=== PATIENT | female | born 1975 | race Caucasian/White ===

== ENCOUNTER → 2017-12-22 07:46 | Outpatient (CLI) | payer OTHER, SELFPAY ==
[2017-12-22 10:23] LABS: ALB/GLOB Ratio 1.2 RATIO (0.9-2.4); AST(SGOT) 19 U/L (15-37); Alanine Aminotransfer ALT/SGPT 35 U/L (13-56); Alkaline Phosphatase 44 U/L (45-117); Anion Gap 6 (5-15); BUN 14 mg/dL (7-18); BUN/Creat Ratio 15.4 RATIO (10-20); Calcium,Total 8.7 mg/dL (8.5-10.1); Chloride 106 mmol/L (98-107); Creatinine, Serum 0.91 mg/dL (0.55-1.02); EST Glomerular Filtration Rate 73 mL/min (>60); Est Glom Filt Rate - Afr Amer 88 mL/min (>60); Free T3 2.6 pg/mL (2.18-3.98); Globulin 3.2 g/dL (2.2-4.2); Glucose 80 mg/dL (70-110); Potassium 3.7 mmol/L (3.5-5.1); Protein, Total 7.2 g/dL (6.4-8.2); Sodium Level 141 mmol/L (136-145); T4 Free Direct 1.02 ng/dL (0.76-1.46); Thyroid Stim Hormone (TSH) 2.46 uIU/mL (0.358-3.74)
== END ==
PROVIDERS: Family Provider Family Medicine; PCP Family Medicine; Visit Provider Internal Medicine Endocrinology, Diabetes & Metabolism
DX: E05.20 Thyrotoxicosis with toxic multinodular goiter without thyrotoxic crisis or storm (principal); E55.9 Vitamin D deficiency, unspecified
CPT/HCPCS: 36415; 80053; 82306; 84439; 84443; 84481

== ENCOUNTER → 2018-07-27 07:14 | Outpatient (CLI) | payer OTHER, SELFPAY ==
[2018-07-27 10:38] LABS: Vitamin D,25 Hydroxy 62.5 ng/mL (29.95-100.01)
[2018-07-27 10:43] LABS: ALB/GLOB Ratio 1.2 RATIO (0.9-2.4); AST(SGOT) 23 U/L (15-37); Alanine Aminotransfer ALT/SGPT 30 U/L (13-56); Albumin, Serum 3.8 g/dL (3.2-5.0); Alkaline Phosphatase 39 U/L (45-117); Anion Gap 9 (5-15); BUN 14 mg/dL (7-18); BUN/Creat Ratio 16.9 RATIO (10-20); Calcium,Total 8.5 mg/dL (8.5-10.1); Chloride 108 mmol/L (98-107); Cholesterol 160 mg/dL (200); Creatinine, Serum 0.83 mg/dL (0.55-1.02); EST Glomerular Filtration Rate 80 mL/min (>60); Est Glom Filt Rate - Afr Amer 97 mL/min (>60); Globulin 3.2 g/dL (2.2-4.2); Glucose 80 mg/dL (74-106); High Density Lipoprotein 58 mg/dL; Potassium 3.8 mmol/L (3.5-5.1); Sodium Level 144 mmol/L (136-145); Triglycerides 64 mg/dL; Very Low Density Lipoprotein 13 mg/dL (5-40)
== END ==
PROVIDERS: Family Provider Family Medicine; PCP Family Medicine; Visit Provider Internal Medicine Endocrinology, Diabetes & Metabolism
DX: E04.2 Nontoxic multinodular goiter (principal); E78.00 Pure hypercholesterolemia, unspecified; E55.9 Vitamin D deficiency, unspecified
CPT/HCPCS: 36415; 80053; 80061; 82306; 84443

== ENCOUNTER → 2018-08-30 09:05 | Outpatient (CLI) | payer OTHER, SELFPAY ==
[2018-08-30 10:30] LABS: Hemoglobin A1c 5.4 % (4.2-6.3)
[2018-08-30 10:31] LABS: Estradiol 71.3 pg/mL; Follicle Stimulating Hormone 4.4 mIU/mL; Luteinizing Hormone 3.2 mIU/mL; T4 Free Direct 0.89 ng/dL (0.76-1.46); Thyroid Stim Hormone (TSH) 1.81 uIU/mL (0.358-3.74)
[2018-08-30 11:00] LABS: Progesterone Level 12.13 ng/mL (See Comment)
[2018-08-31 07:37] LABS: DHEA Sulfate 114.8 ug/dL (57.3-279.2)
== END ==
PROVIDERS: Family Provider Family Medicine; PCP Family Medicine; Referring Provider Obstetrics & Gynecology; Visit Provider Obstetrics & Gynecology
DX: N95.1 Menopausal and female climacteric states (principal)
CPT/HCPCS: 36415; 82533; 82627; 82670; 83001; 83002; 83036; 84144; 84403; 84439; 84443; 84481; 82626

== ENCOUNTER → 2018-09-20 08:45 | Outpatient (CLI) | payer OTHER, SELFPAY ==
--- NOTE | 2018-09-20 08:48 | RAD_ITS ---
STUDY: X-RAY - LEFT KNEE REASON FOR EXAM: Knee pain for 2 months after working out. TECHNIQUE: 4 view(s) of the knee. COMPARISON: Radiographs 07/18/2010. FINDINGS: Normal visualized distal femur. Normal visualized proximal tibia and fibula. Normal proximal tibiofibular articulation. Normal medial femorotibial compartment. Normal lateral femorotibial compartment. Normal patellofemoral articulation. There is a small joint effusion. RAD/Knee 4 or More Views IMPRESSION: Small joint effusion. Otherwise, unremarkable x-ray examination of the left knee. Electronically Signed: José Levin MD at 16:01 EDT Tel , Service support ,
[2018-09-20 11:52] LABS: Pathologist Comment May follow
[2018-09-20 15:03] LABS: Synovial Fld Mononuclear WBC % 74.7 %; Synovial Fld Polynuclear WBC # 0.069 10^3/ul; Synovial Fld Polynuclear WBC % 25.3 %
[2018-09-20 15:19] LABS: AUTO B FLUID DILUENT BKGD CT WBC <0.1 RBC <0.01 (W<.1,R<.01)
[2018-09-20 15:20] LABS: Appearance /Synovial Fluid Sl Cl (CLEAR); Color / Synovial Fluid Yellow (Pale Yellow); RBC /Synovial Fluid 18 /mm3 (0); Source- Body Fluid SYNOVIAL
[2018-09-20 15:27] LABS: Body Fluid QC Type(s) BF1Q,BF2Q,BF3Q; Lymph 23 %; Monocyte /Synovial Fluid 70 %; Neutrophil 7 % (0-25)
[2018-09-21 15:29] LABS: Pathologist Review Reviewed
== END ==
PROVIDERS: Family Provider Family Medicine; PCP Family Medicine; Referring Provider Orthopaedic Surgery; Visit Provider Orthopaedic Surgery
DX: M25.562 Pain in left knee (principal); M94.262 Chondromalacia, left knee
CPT/HCPCS: 73564; 87070; 87075; 87205; 89050; 89051; 89060

== ENCOUNTER 2018-11-02 07:00 | Outpatient (RCR) | payer OTHER, SELFPAY ==
--- NOTE | 2018-10-05 08:23 | HP.PTEVAL_ITS ---
Patient's Visit Information ASHWINI KRISHNAN is a 43 year old F referred to Physical Therapy by Naomi Jones DO with a diagnosis of L knee pain. Date of Evaluation: 10/05/18 Physical Therapist: Leobardo Nguyen PT, - Visit Plan Frequency: 1x/Week Duration: 1 Week Plan: I issued a HEP consisting of core strengthening ex's and L LE strengthening - Subjective Subjective: Pt reports she has had L knee pain since June. Pt reports she was performing knee extension ex's when she began to experience L knee pain. Pt reports she has had this pain in the past, but it has never lasted this long. Pain is generalized throughout the entire L knee. Pt reports she is unable to squat due to the pain and swelling. Pt has had xrays, which were all negative in findings. No T or N in the L LE. Pt reports no sleep difficulty secondary to pain. No difficulty with stair negotiation. Pt currently works out at [employer]. Pt is not able to stand for a long period of time secondary to pain. 1/10 at rest, 2/10 at worst (attempting to squat) - Pain L knee Pain Intensity (Out of 10): 1 Pain Intensity Range: 2 - Objective Neuro: B LE sensation is WNL to light touch. B achilles reflex= 2/3. Palpation: Pt is sore on the lateral edge of her L patella. Significant crepitus with AROM. No obvious deformity at this time. Girth at joint line: B knees are 37 cm. ROM: B knees are 0-140 degrees. Flexibilty: Pt is moderately limited with quads, HS's, and IT band. Gait: Pt has sig valgus with step lunging indicating core weakness. MMT: B knees are 4+/5 and not painful - Goals Goal 1:: I with HEP Goal Time Frame: 1 Week - Rehabilitation Potential Physical Therapy Diagnosis: L knee pain and difficulty with squatting activity secondary to patellofemoral syndrome Rehabilitation Potential: Good - Anticipated Interventions Patient/Client Instruction: Educate patient on: Condition For the Purpose of:: To improve self management Therapeutic Exercise to Include: Strength training, Flexibilty training, Dynamic Lumbar Stabilization For the Purpose of:: To decrease pain, To increase ROM, To improve muscle performance and motor function Cryotherapy (ice pack, ice massage): Yes For the Purpose of:: To decrease pain Thank you for the opportunity to evaluate your patient. For Medicare and Medicare HMO plans, please review the plan of care and approve it. It will need to be FAXED BACK to us at [phone] for Medicare purposes. Please let me know if there are questions or concerns regarding this plan of care. Physician Signature: Date:
--- NOTE | 2018-11-02 08:02 | HP.PTDCSUM ---
HP - PT D/C Summary It has been my pleasure to treat ASHWINI KRISHNAN under orders from Naomi Jones DO, for the diagnosis of L knee pain for a total of 2 visit(s). Discharge Date: Please see the following information for a summary of their discharge status. - Subjective Subjective: Pt returns today noting she has been consistent and compliant with HEP. Pt reports she is frustrated that she still has pain. - Pain L knee Pain Intensity (Out of 10): 1 - Objective Objective/Function: Pt is consistent with ex's and has remained compliant. Pt still has swelling in L knee and is limited with squatting activity. Pt continues to have painful crepitus with AROM. No significant changes at this time - Goals Goal 1:: I with HEP - Plan Plan: Discontinue, pt to have possible MRI - D/C Information If there are questions or concerns regarding this patient's physical therapy, please feel free to call me at [phone]. Thank you for the referral of this patient. Sincerely, Leobardo Nguyen, PT,
== END 2018-11-02 13:08 | disposition home or self-care (01) ==
LOC: PT 07:00
PROVIDERS: Family Provider Family Medicine; PCP Family Medicine; Referring Provider Orthopaedic Surgery; Visit Provider Orthopaedic Surgery
DX: M22.42 Chondromalacia patellae, left knee (principal); M22.2X2 Patellofemoral disorders, left knee
CPT/HCPCS: 97162; 97530

== ENCOUNTER → 2018-11-14 06:14 | Outpatient (CLI) | payer OTHER, SELFPAY ==
--- NOTE | 2018-11-14 06:15 | MRI_ITS ---
STUDY: MRI LEFT KNEE REASON FOR EXAM: Female, 43 years old. Left knee pain with patellar maltracking. TECHNIQUE: Standardized fat and water weighted pulse sequences were obtained in all 3 orthogonal planes. COMPARISON: X-rays of the left knee dated September 20, 2018. FINDINGS: Normal medial meniscus. There is mild thinning of the articular cartilage of the medial femorotibial compartment (coronal series 6 images 10-15). Normal medial femoral condyle and tibial plateau. Normal medial collateral ligamentous complex (MCL). Normal distal semimembranosus, gracilis and semitendinosus tendons. Normal lateral meniscus. There is mild thinning of the articular cartilage of the lateral femorotibial compartment (coronal series 6 images 8-15). Normal lateral femoral condyle and tibial plateau. Normal proximal tibiofibular articulation. Normal lateral collateral (fibular) ligament. Normal popliteus tendon. Normal biceps femoris tendon. Normal anterior cruciate ligament (ACL). Normal posterior cruciate ligament (PCL). 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 Normal medial and lateral patellar retinaculum. Normal quadriceps tendon. Normal patellar tendon. Normal Hoffa's fat pad. There is a joint effusion (axial series 2 image 8). The soft tissues are unremarkable. The otherwise visualized osseous structures are unremarkable. MRI/Lower Ext Joint Only (Routine) IMPRESSION: Mild thinning of the articular cartilage of the medial and lateral femorotibial compartments. 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 Small joint effusion. No meniscal or ligamentous pathology. Electronically Signed: Baldo Morales MD at 13:56 EST , Service support ,
== END ==
PROVIDERS: Family Provider Family Medicine; PCP Family Medicine; Referring Provider Orthopaedic Surgery; Visit Provider Orthopaedic Surgery
DX: M22.8X2 Other disorders of patella, left knee (principal); M94.262 Chondromalacia, left knee
CPT/HCPCS: 73721

== ENCOUNTER → 2019-02-08 07:04 | Outpatient (CLI) | payer BC, SELFPAY ==
[2019-02-08 10:47] LABS: ALB/GLOB Ratio 1.3 RATIO (0.9-2.4); AST(SGOT) 22 U/L (15-37); Alanine Aminotransfer ALT/SGPT 31 U/L (13-56); Albumin, Serum 3.9 g/dL (3.2-5.0); Alkaline Phosphatase 40 U/L (45-117); Anion Gap 7 (5-15); BUN 16 mg/dL (7-18); BUN/Creat Ratio 18.9 RATIO (10-20); Calcium,Total 8.7 mg/dL (8.5-10.1); Chloride 110 mmol/L (98-107); Cholesterol 154 mg/dL (200); Creatinine, Serum 0.85 mg/dL (0.55-1.02); EST Glomerular Filtration Rate 78 mL/min (>60); Est Glom Filt Rate - Afr Amer 94 mL/min (>60); Free T3 2.3 pg/mL (2.18-3.98); Glucose 88 mg/dL (74-106); High Density Lipoprotein 51 mg/dL; Potassium 3.8 mmol/L (3.5-5.1); Protein, Total 6.9 g/dL (6.4-8.2); Sodium Level 143 mmol/L (136-145); T4 Total, Thyroxin 8.8 ug/dL (4.8-13.9); Triglycerides 52 mg/dL; Very Low Density Lipoprotein 10 mg/dL (5-40)
[2019-02-08 10:55] LABS: Vitamin D,25 Hydroxy 69.5 ng/mL (29.95-100.01)
== END ==
PROVIDERS: Family Provider Family Medicine; PCP Family Medicine
DX: E04.2 Nontoxic multinodular goiter (principal); E78.00 Pure hypercholesterolemia, unspecified; E55.9 Vitamin D deficiency, unspecified
CPT/HCPCS: 36415; 80053; 80061; 82306; 84436; 84443; 84481

== ENCOUNTER 2019-10-21 13:49 | Emergency (ER) | payer OTHER, SELFPAY ==
[2019-09-05 15:32] VITALS: BMI 23.1
[2019-10-21 13:50] VITALS: BP 131/72; PULSE 86; RESP 16; TEMP 36.4; O2SAT 100; BMI 23.1
[2019-10-21 14:00] VITALS: RESP 16
--- NOTE | 2019-10-21 14:48 | ED.VISSUMM ---
- ER Visit Summary Date of Service: 10/21/19 Chief Complaint: Atraumatic left upper extremity swelling History of Present Illness: The patient is a 44 F no significant past medical history. Patient is right-hand dominant. She does work out but denies any obvious injury to her extremity lately. States the last week he had mild discomfort in her left arm and has developed swelling in her bicep tricep and forearm. No prior history. No history of DVT or PE. He denies any chest pain or shortness of breath. No family history of clotting disorder. Physical Examination: Middle-aged female no acute distress with stable afebrile. HEENT exam unremarkable. Neck nontender no lymphadenopathy. Lungs clear to auscultation bilaterally. Heart regular rhythm no murmur. Abdomen soft nontender normal Doppler no peritoneal signs. Extremities moves all 4. Neurovascular intact. Left upper arm from the shoulder down to her with is definitely swelling and edema. Almost 25 to light on. However she has full range of motion to the left shoulder, elbow, wrist and hand. 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 Normal sensation. Normal cap refill. And a strong radial pulse on the left. There are no obvious cords. There is no axillary lymphadenopathy. No cellulitis. Is not tender to touch. Neurologically he is awake and alert with no focal motor or sensory deficit. Test Results: D-dimer elevated at 1.29. Chest x-ray 2 views AP and lateral read both by myself and radiologist shows no acute abnormality. No mass. Normal cardiac silhouette and mediastinum. Emergency Department Course and Treatment: Noninvasive studies are not available at this time. A d-dimer will be done. Concern for possible left upper extremity DVT. This could be from an injury from a lifting but he does not have any specific episode remember having any type of injury to the arm. There is no bicep or tricep deficit. Repeat exam and 15 patient is doing well. Due to the swelling of the arm and no other specific cause she will be started on anticoagulation. She will be given 1 Xarelto here and take 1 tonight at home. We will have a noninvasive study of the left upper extremity again tomorrow. I discussed all the patient she is comfortable with the plan. Treatment Plan: Ice and elevate left arm. Xarelto tonight for bedtime. Return tomorrow for the noninvasive study. Return if feeling worse. Disposition: Discharge Impression: Atraumatic left arm swelling of uncertain etiology Rule out upper extremity deep venous thrombosis versus muscle strain and swelling This note was generated with [employer] dictation software. It may contain incorrect words, spelling, and punctuation that were not noted in review of the chart prior to signing ED Disposition - Plan for ED Patient: Referrals: Yadira Reeves MD [Primary Care Provider] -
[2019-10-21 15:35] LABS: D-Dimer Quantitative (DVT/PE) 1.29 FEU/ug/m (0.27-0.49)
--- NOTE | 2019-10-21 15:38 | RAD_ITS ---
STUDY: X-RAY CHEST REASON FOR EXAM: Female, 44 years old. Left arm swelling x1 week TECHNIQUE: PA and lateral views of the chest. COMPARISON: None. FINDINGS: The lungs are clear and expanded. There is no demonstrated pleural abnormality. Normal size heart. Normal mediastinum and gisele. Normal visualized pulmonary arteries. Normal visualized aortic arch and descending thoracic aorta. Normal visualized thoracic spine. Normal visualized ribs, clavicles, and shoulders. There is no demonstrated abnormality of the visualized soft tissue structures of the upper abdomen. RAD/Chest PA and Lateral IMPRESSION: Normal x-ray examination of the chest. Electronically Signed: Ernesto Paulino DO at 16:12 EST Tel , Service support ,
--- NOTE | 2019-10-21 16:20 | ED.DEP ---
ED Disposition - Plan for ED Patient: Disposition: Home or Assisted Living Referrals: Yadira Reeves MD [Primary Care Provider] - 1 Week if not improving Additional Instructions: Uncertain cause of swelling your left arm. We need to make sure this is not a blood clot of your left arm. He will return tomorrow morning to have a noninvasive study done of your left upper extremity. They will call you to set this up. If you do not hear something by 10 AM call the ER I will be working at that time. The number for the emergency department is [phone]. The arm swelling may be secondary to a strain of the muscle. Ice it and elevate it. After tomorrow if there is no blood clot Motrin for pain and inflammation and rest the arm. Return if you develop chest pain or shortness of breath. Take your other Xarelto pill tonight before bedtime.
[2019-10-21] MEDS: Rivaroxaban 15 MG Tablet PO ×2 (16:35→16:36)
[2019-10-21 16:36] VITALS: RESP 16
== END 2019-10-21 16:37 | disposition home or self-care (01) ==
PROVIDERS: Emergency Provider Emergency Medicine; Family Provider Family Medicine; PCP Family Medicine
DX: M79.89 Other specified soft tissue disorders (principal); M79.602 Pain in left arm; R79.89 Other specified abnormal findings of blood chemistry
CPT/HCPCS: 71046; 85379; 99283

== ENCOUNTER → 2019-10-22 10:57 | Outpatient (CLI) | payer OTHER, SELFPAY ==
[2019-10-21 13:50] VITALS: BMI 23.1
--- NOTE | 2019-10-22 11:07 | VDUE_ITS ---
Reason For Study: Swelling, Elevated D-Dimer Right Proximal Left Proximal Right subclavian vein is spontaneous, widely Left jugular vein is spontaneous, widely patent, phasic, with no intraluminal patent, phasic, with no intraluminal echogenicity noted. echogenicity noted. Lt SubclavianV is dilated and non compressible consistent with acute DVT. Left Arm Left axillary vein is spontaneous, patent, phasic, competent, compressible and demonstrates augmentation. Left brachial vein is compressible. Left cephalic vein is compressible. Left basilic vein is compressible. Left Lower Arm Left radial vein is compressible. Left ulnar vein is compressible. Patient Safety Pt taken to ED. Interpretation Summary Acute deep vein thrombosis is noted in the left subclavian vein. The remainder of the left upper extremity deep venous system appears patent. The superficial veins of the left upper extremity, the basilic and cephalic veins, are patent and compressible. There is no evidence of left upper extremity superficial thrombophlebitis involving the veins imaged. Ordering Physician: Eliseo Terry Referring Physician: Yadira Reeves Performed By: Nory Diaz, SHIRA, RVT ?
== END ==
PROVIDERS: Family Provider Family Medicine; PCP Family Medicine; Visit Provider Emergency Medicine
DX: M79.89 Other specified soft tissue disorders (principal)
CPT/HCPCS: 93971

== ENCOUNTER 2019-10-22 11:51 | Emergency (ER) | payer OTHER, SELFPAY ==
[2019-10-21 13:50] VITALS: BMI 23.1
[2019-10-22 11:52] VITALS: BP 120/67; PULSE 70; RESP 17; TEMP 36.7; O2SAT 100; BMI 23.3
--- NOTE | 2019-10-22 12:41 | ED.VISSUMM ---
- ER Visit Summary Date of Service: 10/22/19 Chief Complaint: Left subclavian vein deep venous thrombosis History of Present Illness: The patient is a 44 F significant past medical history. Patient was seen yesterday in the emergency department had atraumatic swelling of her left arm. Was started on Xarelto for possible DVT due to an elevated d-dimer. We are able to get the noninvasive study of her left arm this morning which did show a left subclavian vein clot. A center to ER for evaluation. She denies any chest pain or shortness of breath. Again no family history of clotting disorder. Physical Examination: White female no acute distress vital signs stable afebrile. HEENT exam unremarkable. Lungs are clear. Heart regular rhythm. Abdomen soft nontender. Extremities moves all 4. Neurovascular intact. She does have mild swelling from her left shoulder to her left hand. Hands neurovascular intact with normal cap refill and radial pulse. Normal client service associate strength and sensation. There are no cords. Neurologically she is awake and alert. Test Results: Patient had recent BMP showing normal renal function. I am unable to do the hypercoagulable panel today due to her being on the Xarelto which was started yesterday. I confirmed this with the assembler truck trailer on-call. Emergency Department Course and Treatment: Xarelto here. Xarelto twice daily for the first 20 days and then once a day. Referred to Dr. Asencio in line for further work-up for left subclavian DVT. Treatment Plan: Xarelto twice daily. Follow-up with hematology. Disposition: Discharge Impression: Left subclavian vein deep venous thrombosis of uncertain etiology with left arm swelling This note was generated with [employer] dictation software. It may contain incorrect words, spelling, and punctuation that were not noted in review of the chart prior to signing ED Disposition - Plan for ED Patient: Referrals: Yadira Reeves MD [Primary Care Provider] -
--- NOTE | 2019-10-22 12:43 | ED.DEP ---
ED Disposition - Plan for ED Patient: Disposition: Home or Assisted Living Prescriptions: Rivaroxaban [Xarelto] 15 mg PO BID 19 Days #37 tab Prescription Printed Rivaroxaban [Xarelto] 20 mg PO DAILY #30 tab Prescription Printed Referrals: Jorge Nelson DO [STAFF PHYSICIAN] - As soon as possible Additional Instructions: Continues with Xarelto 15 mg twice a day taken about the same time each day for the first 20 days. You have already been on it for 1 day. After the initial 20 days on day 21 you will start taking it only once a day. Confirm that with the supervisor vacuum metalizing. Call and follow-up with a supervisor vacuum metalizing soon as possible. Elevate arm and decrease swelling. Avoid contact sports or head injuries while you are on the blood thinner Xarelto. If you have any bleeding in your stool, urine or bloody nose seek medical attention.
[2019-10-22] MEDS: Rivaroxaban 15 MG Tablet PO (13:06)
[2019-10-22 13:07] VITALS: RESP 16
== END 2019-10-22 13:07 | disposition home or self-care (01) ==
PROVIDERS: Emergency Provider Emergency Medicine; Family Provider Family Medicine; PCP Family Medicine
DX: I82.B12 Acute embolism and thrombosis of left subclavian vein (principal)
CPT/HCPCS: 99283

== ENCOUNTER → 2020-01-09 08:31 | Outpatient (CLI) | payer OTHER, SELFPAY ==
[2020-01-09 10:31] LABS: ALB/GLOB Ratio 1.3 RATIO (0.9-2.4); AST(SGOT) 24 U/L (15-37); Alanine Aminotransfer ALT/SGPT 45 U/L (13-56); Albumin, Serum 3.7 g/dL (3.2-5.0); Alkaline Phosphatase 40 U/L (45-117); Anion Gap 5 (5-15); BUN 14 mg/dL (7-18); BUN/Creat Ratio 15.6 RATIO (10-20); Calcium,Total 8.7 mg/dL (8.5-10.1); Chloride 106 mmol/L (98-107); Cholesterol 147 mg/dL (200); EST Glomerular Filtration Rate 73 mL/min (>60); Est Glom Filt Rate - Afr Amer 88 mL/min (>60); Globulin 2.9 g/dL (2.2-4.2); Glucose 85 mg/dL (74-106); High Density Lipoprotein 67 mg/dL; Potassium 3.7 mmol/L (3.5-5.1); Protein, Total 6.6 g/dL (6.4-8.2); Sodium Level 141 mmol/L (136-145); Thyroid Stim Hormone (TSH) 2.51 uIU/mL (0.358-3.74); Triglycerides 33 mg/dL; Very Low Density Lipoprotein 7 mg/dL (5-40)
== END ==
PROVIDERS: PCP Family Medicine; Referring Provider Internal Medicine Endocrinology, Diabetes & Metabolism; Visit Provider Internal Medicine Endocrinology, Diabetes & Metabolism
DX: E04.2 Nontoxic multinodular goiter (principal); E78.00 Pure hypercholesterolemia, unspecified
CPT/HCPCS: 36415; 80053; 80061; 84443

== ENCOUNTER → 2020-01-18 09:36 | Outpatient (CLI) | payer OTHER, SELFPAY ==
[2020-01-18 13:30] LABS: D-Dimer Quantitative (DVT/PE) 0.37 FEU/ug/m (0.27-0.49)
== END ==
PROVIDERS: PCP Family Medicine; Referring Provider Family Medicine; Visit Provider Family Medicine
DX: I80.8 Phlebitis and thrombophlebitis of other sites (principal)
CPT/HCPCS: 36415; 85379

== ENCOUNTER → 2020-05-13 14:58 | Outpatient (CLI) | payer OTHER, SELFPAY ==
[2020-03-19 12:41] VITALS: BMI 23.3
--- NOTE | 2020-05-13 14:58 | RAD_ITS ---
STUDY: X-RAY - RIGHT KNEE REASON FOR EXAM: Female, 44 years old. CHRONIC KNEE PAIN TECHNIQUE: 4 view(s) of the knee. COMPARISON: 2017 FINDINGS: Normal visualized distal femur. Normal visualized proximal tibia and fibula. Normal proximal tibiofibular articulation. Normal medial femorotibial compartment. Normal lateral femorotibial compartment. Normal patellofemoral articulation. The soft tissue structures are unremarkable. RAD/Knee 4 or More Views IMPRESSION: Normal x-ray examination of the knee. Electronically Signed: Bassam Alegria MD at 15:35 EDT , Service support ,
== END ==
PROVIDERS: PCP Family Medicine; Referring Provider Physician Assistant; Visit Provider Physician Assistant
DX: M25.561 Pain in right knee (principal)
CPT/HCPCS: 73564

== ENCOUNTER 2020-06-06 10:00 | Emergency (ER) | payer OTHER, SELFPAY ==
[2020-06-06 08:54] VITALS: BMI 23.3
[2020-06-06 10:01] VITALS: BP 119/72; PULSE 61; RESP 17; TEMP 36.6; O2SAT 100; BMI 23.5
--- NOTE | 2020-06-06 10:15 | EKG12_ITS ---
Test Reason : DIZZINESS Blood Pressure : / mmHG Vent. Rate : 059 BPM Atrial Rate : 059 BPM P-R Int : 152 ms QRS Dur : 092 ms QT Int : 448 ms P-R-T Axes : 054 087 041 degrees QTc Int : 443 ms Sinus bradycardia Incomplete right bundle branch block Borderline ECG Confirmed by GUSTAVO NEWELL, DALE ([id number]), make up editor CATHERINE GUZMAN ([id number]) on 06/10/2020 10:57:44 AM Referred By: MARY Confirmed By:DALE CHEN MD
--- NOTE | 2020-06-06 10:17 | ED.DCSUM_ITS ---
- ER Visit Summary Date of Service: 06/06/20 Chief Complaint: Near syncope History of Present Illness: The patient is a [address] Reeves. Just before coming to the emergency department patient had Synvisc injection in her right knee. She states that she walked out approximately [address] the [address] to her car she got lightheaded and nauseated. She denies any diaphoresis. No chest pain or palpitations. She felt as though she was going to pass out. Her symptoms lasted 5 to 7 minutes. She is now back to her baseline. Physical Examination: Vitals: Stable. Afebrile. General: Well-nourished and well-developed. Head: Normocephalic atraumatic. Neck: Supple, no lymphadenopathy. No JVD. Nontender. Cardiovascular: Regular rate and rhythm. No murmurs. Respiratory: No respiratory distress. Clear to auscultation bilaterally. Abdominal: Soft, nontender, nondistended, normal bowel sounds. No guarding, rebound, or peritoneal signs. Back: Nontender. Extremities: Nontender, no edema. Skin: Normal color, no rash. Neurologic: Alert and oriented ?3. Cranial nerves II through XII are intact. Normal strength and sensation. Psych: Normal affect. Test Results: EKG shows sinus bradycardia with incomplete right bundle branch block. Her rate is 59. Her intervals are otherwise normal. No evidence of Brugada syndrome. Emergency Department Course and Treatment: Patient is resting comfortably. She was reassured. She refused blood work. Treatment Plan: Patient will be discharged instructions to push fluids. Follow- up with her primary care physician 1 to 2 days if not improving. Return to the emergency department for any worsening symptoms. Disposition: To home in improved and stable condition. Impression: 1. Vasovagal episode after arthrocentesis. This note was generated with [employer] software. It may contain incorrect words, spelling, and punctuation that were not noted in review of the chart prior to signing ED Disposition - Plan for ED Patient: Instructions: ED Near Syncope Vasovagal Referrals: Yadira Reeves MD [Primary Care Provider] - 1-2 Days if not improving
[2020-06-06 10:42] VITALS: BP 110/70; PULSE 66; RESP 19; O2SAT 100
[2020-06-06 11:15] VITALS: BP 121/78; PULSE 78; RESP 17; O2SAT 98
== END 2020-06-06 11:15 | disposition home or self-care (01) ==
PROVIDERS: Emergency Provider Emergency Medicine; PCP Family Medicine
DX: R55 Syncope and collapse (principal); I45.10 Unspecified right bundle-branch block
CPT/HCPCS: 93005; 99284; J7030

== ENCOUNTER → 2020-09-30 11:26 | Outpatient (CLI) | payer OTHER, SELFPAY ==
[2020-09-30 14:30] LABS: Estradiol 31.3 pg/mL; Follicle Stimulating Hormone 4.8 mIU/mL; Luteinizing Hormone 3.1 mIU/mL; T4 Free Direct 0.95 ng/dL (0.76-1.46); Thyroid Stim Hormone (TSH) 1.85 uIU/mL (0.358-3.74)
== END ==
PROVIDERS: PCP Family Medicine; Visit Provider Obstetrics & Gynecology
DX: R53.83 Other fatigue (principal); N92.6 Irregular menstruation, unspecified
CPT/HCPCS: 36415; 82670; 83001; 83002; 84439; 84443

== ENCOUNTER → 2020-11-20 08:09 | Outpatient (CLI) | payer OTHER, SELFPAY ==
[2020-11-20 10:50] LABS: ALB/GLOB Ratio 1.5 RATIO (0.9-2.4); AST(SGOT) 23 U/L (15-37); Alanine Aminotransfer ALT/SGPT 36 U/L (13-56); Albumin, Serum 3.8 g/dL (3.2-5.0); Alkaline Phosphatase 43 U/L (45-117); Anion Gap 3 (5-15); BUN 17 mg/dL (7-18); BUN/Creat Ratio 20.6 RATIO (10-20); Calcium,Total 8.5 mg/dL (8.5-10.1); Chloride 109 mmol/L (98-107); Cholesterol 178 mg/dL (200); Creatinine, Serum 0.82 mg/dL (0.55-1.02); EST Glomerular Filtration Rate 80 mL/min (>60); Est Glom Filt Rate - Afr Amer 97 mL/min (>60); Globulin 2.6 g/dL (2.2-4.2); Glucose 79 mg/dL (74-106); High Density Lipoprotein 70 mg/dL; Potassium 4.4 mmol/L (3.5-5.1); Protein, Total 6.4 g/dL (6.4-8.2); Sodium Level 141 mmol/L (136-145); Thyroid Stim Hormone (TSH) 2.77 uIU/mL (0.358-3.74); Triglycerides 36 mg/dL; Very Low Density Lipoprotein 7 mg/dL (5-40); Vitamin D,25 Hydroxy 75.1 ng/mL
== END ==
PROVIDERS: PCP Family Medicine; Referring Provider Internal Medicine Endocrinology, Diabetes & Metabolism; Visit Provider Internal Medicine Endocrinology, Diabetes & Metabolism
DX: E78.00 Pure hypercholesterolemia, unspecified (principal); E55.9 Vitamin D deficiency, unspecified; E04.0 Nontoxic diffuse goiter
CPT/HCPCS: 36415; 80053; 80061; 82306; 84443

== ENCOUNTER → 2021-02-21 15:56 | Outpatient (CLI) | payer BC, SELFPAY ==
--- NOTE | 2021-02-21 16:02 | RAD_ITS ---
INDICATION: HIP PAIN EXAMINATION/TECHNIQUE: X-RAY - RIGHT XR Hip Unilateral with Pelvis when performed; 2-3 Views COMPARISON: None. FINDINGS: No acute fracture or malalignment. No blastic or lytic lesions. No degenerative changes are seen. The soft tissues are unremarkable. RAD/HIP, UNI W/ Pelvis 2-3 Views IMPRESSION: No acute radiographic abnormalities. Electronically Signed: Alistair Zamorano MD at 21:53 EDT Tel , Service support ,
== END ==
PROVIDERS: PCP Family Medicine; Referring Provider Family Medicine; Visit Provider Family Medicine
DX: M25.551 Pain in right hip (principal)
CPT/HCPCS: 73502

== ENCOUNTER → 2021-04-01 10:36 | Outpatient (CLI) | payer OTHER, SELFPAY ==
[2021-04-01 13:52] LABS: Progesterone Level 9.12 ng/mL (See Comment)
[2021-04-01 13:56] LABS: Estradiol 55.6 pg/mL; Follicle Stimulating Hormone 5.3 mIU/mL; Luteinizing Hormone 3.5 mIU/mL; T4 Free Direct 0.91 ng/dL (0.76-1.46); Thyroid Stim Hormone (TSH) 1.65 uIU/mL (0.358-3.74)
== END ==
PROVIDERS: PCP Family Medicine; Visit Provider Obstetrics & Gynecology
DX: Z78.0 Asymptomatic menopausal state (principal)
CPT/HCPCS: 36415; 82670; 83001; 83002; 84144; 84439; 84443

== ENCOUNTER → 2021-09-05 10:10 | Outpatient (CLI) | payer OTHER, SELFPAY ==
--- NOTE | 2021-09-05 10:45 | MRI_ITS ---
STUDY: MRI RIGHT ANKLE WITHOUT CONTRAST REASON FOR EXAM: Pain and thickening of the Achilles tendon for 2 months, no specific injury, evaluate for Achilles tendinitis/tear. TECHNIQUE: Standardized fat and water weighted pulse sequences were obtained in all 3 orthogonal planes. COMPARISON: None. FINDINGS: Normal subcutis adipose space. There is a very small volume of fluid in the retromalleolar (T2 axial images 12, 13) and submalleolar posterior tibialis tendon sheath (T2 axial images 20-23). There is very mild tendinosis of the submalleolar posterior tibialis tendon (T2 axial images 19, 20). Normal flexor digitorum longus tendon. Normal flexor hallucis longus tendon. Normal peroneus longus and brevis tendons. Normal tibialis anterior tendon. Normal extensor hallucis longus tendon. Normal extensor digitorum longus tendons. There is fusiform thickening of the Achilles tendon in the watershed zone measuring 1.5 cm in AP dimension with an intrasubstance partial tear in the watershed zone measuring 0.9 cm in length (inversion recovery sagittal images 10, 11). Normal plantar fascia. Normal plantar calcaneal tubercles. Normal intrinsic muscles of the rearfoot. Normal distal tibiofibular syndesmotic ligamentous complex. Normal lateral ligamentous complex. Normal subtalar ligaments and sinus tarsi. Normal deltoid ligamentous complexes. Normal plantar calcaneonavicular (spring) ligament. Normal tibiotalar articulation. Normal talar dome. Normal subtalar articulations. Normal talonavicular articulation. Normal calcaneocuboid articulation. Normal navicular-cuneiform articulations. MRI/Lower Ext Joint Only (Routine) IMPRESSION: Achilles tendinosis with small intrasubstance partial tear. Very mild tendinosis and tenosynovitis of the posterior tibialis tendon. Electronically Signed: José Levin MD at 12:36 EDT Tel , Service support ,
== END ==
PROVIDERS: PCP Family Medicine; Referring Provider Podiatrist; Visit Provider Podiatrist
DX: M76.61 Achilles tendinitis, right leg (principal); M79.604 Pain in right leg
CPT/HCPCS: 73721

== ENCOUNTER → 2021-10-20 | Outpatient (CLI) | payer OTHER, SELFPAY ==
[2021-10-22 19:13] LABS: HPV APTIMA, High Risk Negative (Negative)
== END | disposition home or self-care (01) ==
LOC: LABSPEC 10:00
PROVIDERS: PCP Family Medicine; Visit Provider Obstetrics & Gynecology
DX: Z12.4 Encounter for screening for malignant neoplasm of cervix (principal)
CPT/HCPCS: 87624; 88175; G0145

== ENCOUNTER → 2022-03-25 | Outpatient (CLI) | payer OTHER, SELFPAY ==
[2022-03-25 10:40] LABS: Progesterone Level 2.55 ng/mL (See Comment)
[2022-03-25 11:38] LABS: ALB/GLOB Ratio 1.2 RATIO (0.9-2.4); AST(SGOT) 25 U/L (15-37); Alanine Aminotransfer ALT/SGPT 33 U/L (13-56); Albumin, Serum 3.7 g/dL (3.2-5.0); Alkaline Phosphatase 41 U/L (45-117); Anion Gap 5 (5-15); BUN 14 mg/dL (7-18); Calcium,Total 8.2 mg/dL (8.5-10.1); Chloride 106 mmol/L (98-107); Creatinine, Serum 0.88 mg/dL (0.55-1.02); EST Glomerular Filtration Rate 74 mL/min (>60); Est Glom Filt Rate - Afr Amer 90 mL/min (>60); Estradiol 68.2 pg/mL; Follicle Stimulating Hormone 4.1 mIU/mL; Glucose 82 mg/dL (74-106); Potassium 3.7 mmol/L (3.5-5.1); Protein, Total 6.7 g/dL (6.4-8.2); Sodium Level 140 mmol/L (136-145); Thyroid Stim Hormone (TSH) 3.37 uIU/mL (0.358-3.74)
== END | disposition home or self-care (01) ==
LOC: MTLAB 07:08
PROVIDERS: PCP Family Medicine; Referring Provider Internal Medicine Endocrinology, Diabetes & Metabolism; Visit Provider Internal Medicine Endocrinology, Diabetes & Metabolism
DX: E04.0 Nontoxic diffuse goiter (principal); E55.9 Vitamin D deficiency, unspecified
CPT/HCPCS: 36415; 80053; 82306; 82670; 83001; 84144; 84443

== ENCOUNTER → 2023-03-22 | Outpatient (CLI) | payer OTHER, SELFPAY ==
[2023-03-22 12:55] LABS: Progesterone Level 50.34 ng/mL (See Comment); Vitamin D,25 Hydroxy 85.3 ng/mL
[2023-03-22 14:09] LABS: ALB/GLOB Ratio 1.3 RATIO (0.9-2.4); AST(SGOT) 32 U/L (15-37); Alanine Aminotransfer ALT/SGPT 42 U/L (13-56); Alkaline Phosphatase 43 U/L (45-117); Anion Gap 10 (5-15); BUN 11 mg/dL (7-18); BUN/Creat Ratio 10.5 RATIO (10-20); Calcium,Total 9.2 mg/dL (8.5-10.1); Chloride 106 mmol/L (98-107); Creatinine, Serum 1.05 mg/dL (0.55-1.02); EST Glomerular Filtration Rate 60 mL/min (>60); Est Glom Filt Rate - Afr Amer 72 mL/min (>60); Estradiol 27.5 pg/mL; Follicle Stimulating Hormone 16.2 mIU/mL; Glucose 90 mg/dL (74-106); Potassium 3.7 mmol/L (3.5-5.1); Sodium Level 141 mmol/L (136-145)
== END | disposition home or self-care (01) ==
LOC: MTLAB 10:47
PROVIDERS: PCP Family Medicine; Referring Provider Internal Medicine Endocrinology, Diabetes & Metabolism; Visit Provider Internal Medicine Endocrinology, Diabetes & Metabolism
DX: E04.2 Nontoxic multinodular goiter (principal); E55.9 Vitamin D deficiency, unspecified; N95.9 Unspecified menopausal and perimenopausal disorder
CPT/HCPCS: 36415; 80053; 82306; 82670; 83001; 84144; 84443

== ENCOUNTER → 2023-04-16 | Outpatient (CLI) | payer OTHER, SELFPAY ==
--- NOTE | 2023-04-16 06:39 | MRI_ITS ---
STUDY: MRI RIGHT KNEE REASON FOR EXAM: Female, 47 years old. Effusion
== END | disposition home or self-care (01) ==
PROVIDERS: PCP Family Medicine; Referring Provider Physician Assistant; Visit Provider Physician Assistant
DX: M25.461 Effusion, right knee (principal); M23.91 Unspecified internal derangement of right knee
CPT/HCPCS: 73721

== ENCOUNTER → 2023-07-22 | Outpatient (CLI) | payer OTHER, SELFPAY ==
[2023-07-22 15:19] LABS: Absolute Lymphocyte Count 1.48 X10^3/uL (0.83-4.51); Absolute Neutrophil Count 4.5 X10^3/uL (2.0-7.7); Basophil# 0.02 X10^3/uL; Basophil% 0.3 % (0-1); Eosinophil# 0.07 X10^3/uL; Lymphocyte # 1.48 X10^3/ul (0.83-4.51); Mean Corp Hgb Conc 32.5 g/dL (32-36); Mean Corpuscular Hgb 31.1 pg (27.0-32.0); Mean Corpuscular Volume 95.7 fL (81-99); Mean Platelet Vol. 10.9 fl (6.2-12.0); Monocyte% 8.9 % (0-10); NRBC Flagged by Analyzer 0 % (0-5); Neutrophil # 4.53 X10^3/uL (2.7-7.7); Neutrophil % 67.4 % (47-70); Platelet Count 186 K/mm3 (150-450); RBC Distribution Width CV 12.4 % (11.6-14.6); Red Blood Count 4.18 M/mm3 (4.2-5.4); White Blood Count 6.7 K/mm3 (4.4-11.0)
[2023-07-22 16:03] LABS: Vitamin D,25 Hydroxy 88.8 ng/mL
[2023-07-22 16:26] LABS: ALB/GLOB Ratio 1.2 RATIO (0.9-2.4); AST(SGOT) 25 U/L (15-37); Alanine Aminotransfer ALT/SGPT 42 U/L (13-56); Albumin, Serum 3.7 g/dL (3.2-5.0); Alkaline Phosphatase 48 U/L (45-117); Anion Gap 7 (5-15); BUN 15 mg/dL (7-18); BUN/Creat Ratio 17.4 RATIO (10-20); Calcium,Total 8.9 mg/dL (8.5-10.1); Chloride 106 mmol/L (98-107); Creatinine, Serum 0.86 mg/dL (0.55-1.02); EST Glomerular Filtration Rate 75 mL/min (>60); Est Glom Filt Rate - Afr Amer 90 mL/min (>60); Free T3 2.5 pg/mL (2.18-3.98); Glucose 77 mg/dL (74-106); Potassium 3.5 mmol/L (3.5-5.1); Protein, Total 6.7 g/dL (6.4-8.2); Sodium Level 138 mmol/L (136-145); T4 Free Direct 0.89 ng/dL (0.76-1.46); Thyroid Stim Hormone (TSH) 1.83 uIU/mL (0.358-3.74)
== END | disposition home or self-care (01) ==
LOC: MTLAB 13:14
PROVIDERS: PCP Family Medicine; Visit Provider Family Medicine
DX: R53.83 Other fatigue (principal)
CPT/HCPCS: 36415; 80053; 82306; 84439; 84443; 84481; 85025

== ENCOUNTER → 2024-02-21 | Outpatient (CLI) | payer OTHER, SELFPAY ==
--- NOTE | 2024-02-21 08:53 | MRI_ITS ---
STUDY: MRI LEFT ELBOW REASON FOR EXAM: Female, 48 years old. Pain, assess for tennis elbow. Left elbow pain radiating down arm to hand and upwards towards lower biceps for 9 months. Surgery/therapy from 09/2023-10/2023 TECHNIQUE: Standardized fat and water weighted pulse sequences were obtained in all 3 orthogonal planes. COMPARISON: None. FINDINGS: Normal radio-capitellum articulation. Normal radial collateral ligamentous complex. There is tendinosis of the common extensor tendon origin with thickening and increased intrasubstance signal (coronal STIR series 9 image 12). There is mild edema of the adjacent extensor carpi radialis longus muscle (axial STIR series 11 images 5-6). Normal ulnotrochlear articulation. Normal ulnar collateral ligamentous complex. Normal common flexor tendon. The cubital tunnel is normal, with a normal ulnar nerve. Normal biceps tendon and distal insertion. Normal lacertus fibrosis. Normal brachialis musculotendinous insertion. Normal triceps tendon and teno-osseous insertion. Normal olecranon process. The visualized distal humerus, proximal radius, and ulna are normal. There is subcutaneous soft tissue edema along the posterolateral aspect of the elbow. MRI/Upper Ext Joint Only(Routine) IMPRESSION: Tendinosis of the common extensor tendon origin, compatible with lateral epicondylitis. Mild adjacent extensor carpi radialis longus muscle edema. Subcutaneous soft tissue edema along the posterolateral aspect of the elbow. Electronically Signed: Geronimo Ríos MD at 8:10 EDT ,
== END | disposition home or self-care (01) ==
PROVIDERS: PCP Family Medicine; Referring Provider Orthopaedic Surgery Sports Medicine; Visit Provider Orthopaedic Surgery Sports Medicine
DX: M77.12 Lateral epicondylitis, left elbow (principal)
CPT/HCPCS: 73221

== ENCOUNTER → 2024-03-21 | Outpatient (CLI) | payer OTHER, SELFPAY ==
[2024-03-21 13:00] LABS: Vitamin D,25 Hydroxy 84.2 ng/mL
[2024-03-21 13:15] LABS: ALB/GLOB Ratio 1.4 RATIO (0.9-2.4); AST(SGOT) 24 U/L (15-37); Alanine Aminotransfer ALT/SGPT 28 U/L (13-56); Alkaline Phosphatase 36 U/L (45-117); Anion Gap 4 (5-15); BUN 18 mg/dL (7-18); BUN/Creat Ratio 18.1 RATIO (10-20); Chloride 108 mmol/L (98-107); EST Glomerular Filtration Rate 63 mL/min (>60); Est Glom Filt Rate - Afr Amer 76 mL/min (>60); Follicle Stimulating Hormone 36.6 mIU/mL; Globulin 2.9 g/dL (2.2-4.2); Glucose 85 mg/dL (74-106); Luteinizing Hormone 12.9 mIU/mL; Potassium 3.8 mmol/L (3.5-5.1); Protein, Total 6.9 g/dL (6.4-8.2); Sodium Level 140 mmol/L (136-145); Thyroid Stim Hormone (TSH) 2.12 uIU/mL (0.358-3.74)
== END | disposition home or self-care (01) ==
LOC: MTLAB 09:36
PROVIDERS: PCP Family Medicine; Referring Provider Internal Medicine Endocrinology, Diabetes & Metabolism; Visit Provider Internal Medicine Endocrinology, Diabetes & Metabolism
DX: E04.2 Nontoxic multinodular goiter (principal); E55.9 Vitamin D deficiency, unspecified
CPT/HCPCS: 36415; 80053; 82306; 83001; 83002; 84443

== ENCOUNTER 2024-04-03 17:00 | Outpatient (RCR) | payer OTHER, SELFPAY ==
--- NOTE | 2024-03-02 11:30 | HP.PTEVAL ---
Patient's Visit Information Visit Information Visit Information: ASHWINI KRISHNAN is a 48 year old F referred to Physical Therapy by Dr. Major Hodgson MD with a diagnosis of L lateral epicondylitis. Date of Evaluation: 03/02/24 Physical Therapist: Leobardo Nguyen, PT, ATC Visit Plan Frequency: 2x /Week Duration: 4-6 Weeks Plan: L wrist extensor stretching, ECC strengthening, DTR, US, may trial deep needling, and HEP Subjective Subjective: Pt reports she has had L lateral elbow pain for approximately 7 mos. Pt notes she has had 2 injections and home therapy over this time span which did help some, but no permanent relief. Pt reports she had an MRI which revealed no tears. 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 Pt reports she is has tingling and numbness in her L UE that originates in her L biceps region and extends into her L hand. Pt notes her tingling and numbness is intermittent in nature. Pt reports she is most limited with holding objects that weigh a lot, and has difficulty with her exercises she performs in the gym. Pt notes sleep difficulty at this time secondary to pain. Pt is R hand dominant. Pt reports her pain is currently rated at 7/10, but notes it increases to 8/10 at worst (when she is wakes up at night secondary to pain) Pain L lateral elbow pain: Pain Intensity (Out of 10): 7 Pain Intensity Range: 8 Objective Objective: Neuro: B UE sensation is WNL to light touch. B bicipital reflex= 2/3 Palpation: Pt is very sore along the L lateral epicondyle region. Minor swelling noted. No deformity noted. ROM: R wrist flex= 75, ext= 70 degrees ;L wrist flex= 65, ext= 70 degrees MMT: R wrist flex= 34, ext= 23;L wrist flex= 24, ext= 5 #F Surveillance Investigator strength: R= 80 #F, L= 45 #F Balance/Special Test Scores Quick DASH Score: 63.6350 Goals Goal 1:: Decrease L lateral elbow pain x 50% to aid with sleep Goal Time Frame: 4-6 Weeks Goal 2:: Increase L wrist extensor strength x 10 #F to aid with IADL's Goal Time Frame: 4-6 Weeks Goal 3:: Increase L fitness sales associate strength x 15 #F to aid with work requirements Goal Time Frame: 4-6 Weeks Goal 4:: I with HEP Goal Time Frame: 4-6 Weeks Rehabilitation Potential Physical Therapy Diagnosis: Pt has L elbow pain, weakness, and limited ROM secondary to L lateral epicondylitis Rehabilitation Potential: Good Anticipated Interventions Patient/Client Instruction: Educate patient on: Condition and Plan of Care For the Purpose of:: To improve self management Therapeutic Exercise to Include: Strength training, Flexibilty training, Passive ROM and Active ROM For the Purpose of:: To decrease pain, To increase ROM and To improve muscle performance and motor function Ultrasound (thermal/non thermal): Yes For the Purpose of:: To decrease pain Text: Thank you for the opportunity to evaluate your patient. For Medicare and Medicare HMO plans, please review the plan of care and approve it. It will need to be FAXED BACK to us at [phone] for Medicare purposes. For Medicare only, by signing this I certify the plan of care. Please let me know if there are questions or concerns regarding this plan of care. Physician Signature: Date:
--- NOTE | 2024-08-15 16:29 | HP.PT.NRP ---
Patient Information Patient Information: ASHWINI KRISHNAN was seen in my office for initial evaluation on 03/02/24. The following Plan of Care was established for this patient: POC Established Initial Frequency: 2x /Week Initial Duration: 4-6 Weeks Anticipated Interventions Patient/Client Instruction: Educate patient on: Condition and Plan of Care For the Purpose of:: To improve self management Therapeutic Exercise to Include: Strength training, Flexibilty training, Passive ROM and Active ROM For the Purpose of:: To decrease pain, To increase ROM and To improve muscle performance and motor function Ultrasound (thermal/non thermal): Yes For the Purpose of:: To decrease pain Last Seen Last Seen: This patient was last seen in our office . Pertinent comments regarding their Physical therapy will appear below: Pt was treated for 6 PT visits for L elbow pain through the date of 04/03/24. Pt has not returned through todays date and is discontinued at this time. At this point I will be discontinuing this patient from physical therapy. I would be happy to see this patient again in the future if found appropriate by the physician. Thank you! Leobardo Nguyen, PT, ATC Balance/Gait/Functional tests Balance/Special Test Scores Quick DASH Score: 63.6330
== END 2024-04-03 19:00 | disposition home or self-care (01) ==
LOC: PT 17:00
PROVIDERS: PCP Family Medicine; Visit Provider Orthopaedic Surgery Sports Medicine
DX: M77.12 Lateral epicondylitis, left elbow (principal)
CPT/HCPCS: 97110; 97140; 97161

== ENCOUNTER → 2024-05-05 | Outpatient (CLI) | payer OTHER, SELFPAY ==
[2024-05-09 03:15] LABS: Estradiol 238.2 pg/mL; Follicle Stimulating Hormone 7.2 mIU/mL; Luteinizing Hormone 8.1 mIU/mL; Thyroid Stim Hormone (TSH) 3.13 uIU/mL (0.358-3.74)
== END | disposition home or self-care (01) ==
LOC: PAVLAB 10:14
PROVIDERS: PCP Family Medicine; Referring Provider Obstetrics & Gynecology; Visit Provider Obstetrics & Gynecology
DX: N95.1 Menopausal and female climacteric states (principal)
CPT/HCPCS: 36415; 82670; 83001; 83002; 84443

== ENCOUNTER 2024-08-15 09:10 | Outpatient (CLI) | payer OTHER, SELFPAY ==
[2024-08-15 12:23] LABS: Absolute Lymphocyte Count 1.38 X10^3/uL (0.83-4.51); Absolute Neutrophil Count 3.4 X10^3/uL (2.0-7.7); Basophil# 0.03 X10^3/uL; Basophil% 0.6 % (0-1); Eosinophil# 0.06 X10^3/uL; Eosinophils% 1.1 % (0-5); Hematocrit 42.8 % (37-47); Hemoglobin 13.9 g/dL (12.0-15.0); Lymphocyte # 1.38 X10^3/ul (0.83-4.51); Lymphocyte % 25.5 % (19-41); Mean Corp Hgb Conc 32.5 g/dL (32-36); Mean Corpuscular Hgb 30.2 pg (27.0-32.0); Mean Corpuscular Volume 92.8 fL (81-99); Mean Platelet Vol. 10.2 fl (6.2-12.0); Monocyte# 0.52 X10^3/uL; Monocyte% 9.6 % (0-10); NRBC Flagged by Analyzer 0 % (0-5); Neutrophil # 3.43 X10^3/uL (2.7-7.7); Neutrophil % 63.2 % (47-70); Platelet Count 236 K/mm3 (150-450); RBC Distribution Width CV 12.4 % (11.6-14.6); Red Blood Count 4.61 M/mm3 (4.2-5.4); White Blood Count 5.4 K/mm3 (4.4-11.0)
[2024-08-15 12:55] LABS: Vitamin B12 464 pg/mL (211-911)
[2024-08-15 13:54] LABS: Cholesterol 176 mg/dL (200); Ferritin 43 ng/mL (8-252); High Density Lipoprotein 73 mg/dL; Iron 179 ug/dL (50-170); Iron Binding Capacity,Total 383 ug/dL (250-450); PERCENT IRON SATURATION 46.7 % (15.0-55.0); Triglycerides 44 mg/dL; Very Low Density Lipoprotein 9 mg/dL (5-40)
== END 2024-08-15 23:59 | disposition home or self-care (01) ==
PROVIDERS: PCP Family Medicine; Referring Provider Family Medicine; Visit Provider Family Medicine
DX: Z83.2 Family history of diseases of the blood and blood-forming organs and certain disorders involving the immune mechanism (principal); Z83.438 Family history of other disorder of lipoprotein metabolism and other lipidemia
CPT/HCPCS: 36415; 80061; 82607; 82728; 83540; 83550; 85025

== ENCOUNTER → 2025-03-01 | Outpatient (CLI) | payer OTHER, SELFPAY ==
[2025-03-01 17:46] LABS: Absolute Lymphocyte Count 1.41 X10^3/uL (0.83-4.51); Basophil# 0.04 X10^3/uL; Basophil% 0.6 % (0-1); Eosinophil# 0.04 X10^3/uL; Eosinophils% 0.6 % (0-5); Hemoglobin 13.3 g/dL (12.0-15.0); Lymphocyte # 1.41 X10^3/ul (0.83-4.51); Lymphocyte % 19.8 % (19-41); Mean Corp Hgb Conc 33.3 g/dL (32-36); Mean Corpuscular Hgb 30.9 pg (27.0-32.0); Mean Platelet Vol. 10.6 fl (6.2-12.0); Monocyte# 0.63 X10^3/uL; Monocyte% 8.9 % (0-10); NRBC Flagged by Analyzer 0 % (0-5); Neutrophil # 4.96 X10^3/uL (2.7-7.7); Neutrophil % 69.7 % (47-70); Platelet Count 206 K/mm3 (150-450); RBC Distribution Width CV 12.5 % (11.6-14.6); RBC Distribution Width SD 42.6 fl (35.1-43.9); White Blood Count 7.1 K/mm3 (4.4-11.0)
[2025-03-01 18:32] LABS: ALB/GLOB Ratio 1.8 RATIO (0.9-2.4); AST(SGOT) 44 U/L (<=31); Alanine Aminotransfer ALT/SGPT 57 U/L (<=34); Albumin, Serum 4.5 g/dL (3.5-5.0); Alkaline Phosphatase 43 U/L (35-104); Anion Gap 13 (5-15); BUN 27 mg/dL (4-19); BUN/Creat Ratio 23.8 RATIO (10-20); Calcium,Total 9.7 mg/dL (7.6-11.0); Carbon Dioxide 22.6 mmol/L (21.0-32.0); Chloride 103 mmol/L (98-108); Cholesterol 159 mg/dL (<=200); Creatinine, Serum 1.12 mg/dL (0.70-1.20); EST Glomerular Filtration Rate 61 (>60); Globulin 2.4 g/dL (2.2-4.2); Glucose 81 mg/dL (70-99); High Density Lipoprotein 69 mg/dL; Low Density Lipoprotein Calc. 80 mg/dL; Potassium 3.9 mmol/L (3.3-5.1); Protein, Total 6.9 g/dL (5.9-8.4); Sodium Level 139 mmol/L (133-145); Total Bilirubin 0.39 mg/dL (0.00-1.30); Triglycerides 53 mg/dL; Very Low Density Lipoprotein 11 mg/dL (5-40); cholesterol:hdl ratio screen 2.31
[2025-03-01 18:47] LABS: Iron 88 ug/dL (50-170); Iron Binding Capacity,Total 329 ug/dL (250-450); Iron Binding Capacity,Unsat 241 ug/dL (228-428)
[2025-03-01 18:49] LABS: Ferritin 87 ng/mL (22-378); Vitamin D,25 Hydroxy 86.6 ng/mL (30-100)
== END | disposition home or self-care (01) ==
LOC: MTLAB 14:52
PROVIDERS: PCP Family Medicine; Referring Provider Family Medicine; Visit Provider Family Medicine
DX: Z13.1 Encounter for screening for diabetes mellitus (principal); E61.1 Iron deficiency; Z13.220 Encounter for screening for lipoid disorders; R53.83 Other fatigue; T14.8XXA Other injury of unspecified body region, initial encounter
CPT/HCPCS: 36415; 80053; 80061; 82306; 82728; 83540; 83550; 83825; 84443; 85025

== ENCOUNTER → 2025-03-21 | Outpatient (CLI) | payer OTHER, SELFPAY ==
[2025-03-21 11:59] LABS: ALB/GLOB Ratio 1.8 RATIO (0.9-2.4); AST(SGOT) 25 U/L (<=31); Alanine Aminotransfer ALT/SGPT 39 U/L (<=34); Albumin, Serum 4.2 g/dL (3.5-5.0); Alkaline Phosphatase 44 U/L (35-104); Anion Gap 9 (5-15); BUN 16 mg/dL (4-19); Calcium,Total 9.3 mg/dL (7.6-11.0); Carbon Dioxide 27.4 mmol/L (21.0-32.0); Chloride 105 mmol/L (98-108); Creatinine, Serum 0.96 mg/dL (0.70-1.20); EST Glomerular Filtration Rate 73 (>60); Globulin 2.3 g/dL (2.2-4.2); Glucose 85 mg/dL (70-99); Protein, Total 6.5 g/dL (5.9-8.4); Sodium Level 141 mmol/L (133-145); Total Bilirubin 0.45 mg/dL (0.00-1.30)
[2025-03-22 17:08] LABS: Thyroglobulin Antibody 20.1 IU/mL (0.0-0.9); Thyroid Peroxidase AB 212 IU/mL (0-34)
== END | disposition home or self-care (01) ==
LOC: MTLAB 08:41
PROVIDERS: PCP Family Medicine; Referring Provider Internal Medicine Endocrinology, Diabetes & Metabolism; Visit Provider Internal Medicine Endocrinology, Diabetes & Metabolism
DX: E04.2 Nontoxic multinodular goiter (principal); E55.9 Vitamin D deficiency, unspecified
CPT/HCPCS: 36415; 80053; 82306; 84439; 84443; 86376; 86800

== ENCOUNTER → 2025-08-20 | Outpatient (CLI) | payer OTHER, SELFPAY | END | disposition home or self-care (01) | LOC: BWCLAB 14:45 | PROVIDERS: PCP Family Medicine; Referring Provider Obstetrics & Gynecology; Visit Provider Obstetrics & Gynecology | DX: R53.83 Other fatigue (principal) | CPT/HCPCS: 36415; 84439; 84443 ==

== ENCOUNTER → 2025-08-24 | Outpatient (CLI) | payer OTHER, SELFPAY ==
[2025-08-24 12:55] LABS: AST(SGOT) 25 U/L (<=31); Alanine Aminotransfer ALT/SGPT 36 U/L (<=34); Albumin, Serum 4.3 g/dL (3.5-5.0); Alkaline Phosphatase 39 U/L (35-104); Anion Gap 12 (5-15); BUN 25 mg/dL (4-19); BUN/Creat Ratio 31.3 RATIO (10-20); Calcium,Total 9.4 mg/dL (7.6-11.0); Carbon Dioxide 24.6 mmol/L (21.0-32.0); Chloride 103 mmol/L (98-108); Free T3 2.4 pg/mL (2.18-3.98); Globulin 2.2 g/dL (2.2-4.2); Glucose 86 mg/dL (70-99); Potassium 4.0 mmol/L (3.3-5.1)
[2025-08-29 12:09] LABS: Testosterone, % Free 1.30 % (0.50-2.80); Testosterone, Free <.04 ng/dL (0.10-0.85)
== END | disposition home or self-care (01) ==
LOC: MTLAB 09:47
PROVIDERS: Obstetrics & Gynecology; PCP Family Medicine; Referring Provider Physician Assistant Medical; Visit Provider Physician Assistant Medical
DX: E04.2 Nontoxic multinodular goiter (principal)
CPT/HCPCS: 36415; 80053; 84402; 84403; 84481

== ENCOUNTER → 2025-10-08 | Outpatient (CLI) | payer OTHER, SELFPAY ==
[2025-10-08 15:38] LABS: AST(SGOT) 38 U/L (<=31); Alanine Aminotransfer ALT/SGPT 40 U/L (<=34); Albumin, Serum 4.3 g/dL (3.5-5.0); Alkaline Phosphatase 41 U/L (35-104); Anion Gap 11 (5-15); BUN 22 mg/dL (4-19); BUN/Creat Ratio 22.2 RATIO (10-20); Calcium,Total 9.6 mg/dL (7.6-11.0); Carbon Dioxide 24.8 mmol/L (21.0-32.0); Chloride 103 mmol/L (98-108); Free T3 2.5 pg/mL (2.18-3.98); Globulin 2.3 g/dL (2.2-4.2); Glucose 91 mg/dL (70-99); Potassium 3.7 mmol/L (3.3-5.1)
== END | disposition home or self-care (01) ==
LOC: MTLAB 14:03
PROVIDERS: Obstetrics & Gynecology; PCP Family Medicine; Referring Provider Physician Assistant Medical; Visit Provider Physician Assistant Medical
DX: E04.0 Nontoxic diffuse goiter (principal)
CPT/HCPCS: 80053; 84439; 84443; 84481

== ENCOUNTER → 2025-10-17 | Outpatient (CLI) | payer OTHER, SELFPAY ==
--- OUTSIDE RECORDS SUMMARY | 2025-10-17 07:24 | XMS RPT_ITS | CCD ---
Author Organization [facility] Care Team Providers Care Egg Packer Name Role Phone Dr. Yadira Reeves Primary Care Provider Dr. Yadira Reeves Referring Provider [phone] HILLARY Medina Attending Provider Dr. Candelario Mc Attending Provider Dr. Yadira Reeves Primary Care Provider Dr. Yadira Reeves Referring Provider HILLARY Medina Attending Provider Dr. Yadira Reeves Primary Care Provider Dr. Yadira Reeves Referring Provider [phone] MD Major Hodgson Attending Provider HILLARY Maloney Attending Provider [phone] MAXIMUS Dickerson Attending Provider Dr. Yadira Reeves MD Primary Care Provider Dr. Yadira Reeves MD Referring Provider Dr. Tamia Amaya DO Attending Provider Thuy Lu MD Primary Care Provider Thuy Lu MD Attending Provider Thuy Lu MD Referring Provider Thuy Lu MD Primary Care Provider Thuy Lu MD Referring Provider Major Hodgson MD Attending Provider [phone] Alexandro NEWELL, Dr. Palomino Attending Provider Aly NEWELL, Thuy Primary Care Physician Aly NEWELL, Thuy Referring Provider Major Hodgson MD Attending Physician [phone] Alexandro NEWELL, Dr. Palomino Attending Physician Priscila Solorio DO, Dr. Cantrell Attending Physician Priscila Solorio DO, Dr. Cantrell Referring Provider Aly, Chalon Primary Care Unavailable Wietecha, Jason Attending Unavailable Wietecha, Jason Referring Unavailable Aly, Chalon Referring Unavailable Aly, Chalon Primary Care Unavailable Aly, Cocoon Attending Unavailable Aly, Chalon Primary Care Unavailable XUAN, UVALDO Attending Unavailable XUAN, UVALDO Referring Unavailable Aly, Chalon Primary Care Unavailable Vande Velde, Tamia Attending Unavailabl e Aly, Chalon Referring Unavailable Aly, Chalon Primary Care Unavailable Major Hodgson Attending Unavailable Aly, Chalon Referring Unavailable Candelario Mc Attending Unavailable Aly, Chalon Primary Care Unavailable Aly, Chalon Primary Care Unavailable MollMajor lopez Attending Unavailable Aly, Chalon Referring Unavailable Aly, Chalon Referring Unavailable Aly, Chalon Primary Care Unavailable Major Hodgson Attending Unavailable Jolliff, Yadira S Primary Care Unavailable Jolliff, Yadira S Referring Unavailable Vande Tamia Solorio Attending Unavailabl e Aly, Chalon Primary Care Unavailable Vande Velde, Tamia Attending Unavailabl e Vande Velde, Tamia Referring Unavailabl e Allergies Allergy Classification Reported Allergen(s) Allergy Type Date of Onset Reaction(s) Facility (11 sources) Sulfonamides (Antibiotic) Allergy to substance 0 Rash [facility] (1 source) Sulfonamides (Antibiotic) Drug allergy (disorder) 5 [facility] Repository Medications Current Medications Medication Drug Class(es) Dates Sig (Normalized) Sig (Original) cholecalciferol 0.025 mg oral capsule (11 sources) Vitamin D Start: 05-02-2014 take 1 capsule by mouth once daily docosahexaenoic acid 144 mg / eicosapentaenoic acid 216 mg / vitamin e 2 unt oral capsule (11 sources) Start: 08-18-2014 take 1 capsule by mouth once daily 84 hr estradiol 0.97211 mg/hr transdermal system (20 sources) Estrogen Start: 08-21-2025 Start: 08-21-2025 apply 1 dose transde rmal route two times weekly, then apply 1 dose transdermal route every hour Start: 07-24-2025 Start: 05-16-2025 End: 05-31-2025 Estradiol (Vivelle-Dot) 0.1 mg/24 hr patch semiweekly Discontinued 1 NMA TD TWICE A WEEK 8 May 16, 2025 12:00am May 31, 2025 9:09am apply 1 patch for 3 days alternating with 1 patch for 4 days each week for 3 wks per 4-wk cycle Start: 03-29-2025 End: 05-16-2025 apply 1 dose transdermal route two times weekly, then apply 1 dose transdermal route every hour Estradiol (Vivelle-Dot) 0.075 mg/24 hr patch semiweekly Discontinued 1 NMA TD TWICE A WEEK 8 March 29, 2025 12:00am May 16, 2025 1:07pm apply 1 patch for 3 days alternating with 1 patch for 4 days each week Start: 12-25-2024 End: 03-29-2025 Estradiol (Vivelle-Dot) 0.03 75 mg/24 hr patch semiweekly Discontinued 1 NMA TD TWICE A WEEK 24 90 January 22, 2025 10:59am March 29, 2025 8:04am apply 1 patch for 3 days alternating with 1 patch for 4 days each week for 3 wks per 4-wk cycle Start: 06-06-2024 End: 01-22-2025 apply 1 dose transdermal route two times weekly, then apply 1 dose transdermal route every hour Estradiol (Vivelle-Dot) 0.025 mg/24 hr patch semiweekly Discontinued 1 NMA TD TWICE A WEEK 24 90 4 August 07, 2024 10:40am January 22, 2025 10:59am apply 1 patch for 3 days alternating with 1 patch for 4 days each week Start: 05-05-2024 End: 06-06-2024 Estradiol (Vivelle-Dot) 0.03 75 mg/24 hr patch semiweekly Discontinued 1 NMA TD TWICE A WEEK 8 May 05, 2024 12:00am June 06, 2024 2:13pm apply 1 patch for 3 days alternating with 1 patch for 4 days each week for 3 wks per 4-wk cycle Lactobacillus acidophilus (7 sources) Start: 01-14-2024 Start: 01-14-2024 Lactobacillus Acidophilus capsule Active 100 NMA PO DAILY January 14, 2024 1:00am Complies with drug therapy Start: 01-14-2024 Lactobacillus Acidophilus capsule Active 100 NMA PO DAILY January 14, 2024 1:00am Start: 01-14-2024 Lactobacillus Acidophilus Active 100 MMU CELLS PO DAILY January 14, 2024 1:00am meloxicam 7.5 mg oral tablet (20 sources) Nonsteroidal Anti-inflammatory Drug Start: 07-24-2025 take 1 tablet by mouth twice daily as needed for pain Start: 01-18-2023 End: 04-01-2023 take 1 tablet by mouth once daily Meloxicam 15 mg tablet Discontinued 15 mg PO DAILY 30 0 January 18, 2023 1:00am April 01, 2023 8:36am Start: 10-22-2019 End: 12-05-2021 take 1 tablet by mouth once daily Meloxicam 15 mg tablet Discontinued 15 mg PO DAILY 30 2 April 05, 2020 12:00am December 05, 2021 3:43pm stop all other nsaids Start: 12-12-2018 End: 09-05-2019 take 1 tablet by mouth once daily Meloxicam 15 mg tablet Discontinued 15 mg PO DAILY 30 0 February 20, 2019 10:32am September 05, 2019 3:50pm pain Stop use of all other NSAIDS Multivitamin tablet (5 sources) Start: 01-22-2025 Start: 01-22-2025 Multivitamin t ablet Active 1 {tbl} PO daily January 22, 2025 1:00am Complies with drug therapy Start: 01-22-2025 Multivitamin t ablet Active 1 {tbl} PO daily January 22, 2025 1:00am progesterone 100 mg oral capsule (20 sources) Progesterone Start: 08-21-2025 take 1 capsule by [facility] at bedtime Start: 01-14-2024 End: 08-21-2025 take 1 capsule by mouth at bedtime Progesterone Micronized 100 mg capsule Discontinued 300 mg PO AT BEDTIME 270 90 4 August 07, 2024 10:41am January 22, 2025 11:05am Start: 01-14-2024 End: 01-14-2024 take 300 mg by mouth at bedtime Progesterone Micronize d Active 300 MG PO AT BEDTIME 90 January 14, 2024 3:57pm Start: 10-22-2019 End: 05-13-2020 take 1 capsule by mouth once daily Progesterone Micronized 100 MG capsule Discontinued 1 {tbl} PO DAILY October 22, 2019 1:00am May 13, 2020 3:09pm traZODone hydrochloride 100 mg oral tablet (20 sources) Serotonin Reuptake Inhibitor Start: 08-20-2025 take 1 tablet by mouth at bedtime Start: 10-22-2019 End: 08-20-2025 take 1 tablet by mouth at bedtime Trazodone 100 mg tablet Discontinued 100 mg PO AT BEDTIME 30 January 22, 2025 11:04am February 14, 2025 8:56am ubidecarenone 75 mg oral cap catrachita (5 sources) Start: 01-22-2025 Completed/Discontinued Medications Medication Drug Class(es) Dates Sig (Normalized) Sig (Original) acetaminophen 325 mg / oxyCODONE hydrochloride 5 mg oral tablet (11 sources) Opioid Agonist Start: 08-23-2014 End: 09-05-2019 Oxycodone-Acetamino phen 1 TABLET tablet Discontinued 1 - 2 {tbl} PO EVERY 4 HOURS NEEDED as needed for Abdominal Pain August 23, 2014 12:00am September 05, 2019 3:49pm Start: 08-23-2014 End: 09-05-2019 take 1 tablet by mouth every four hours as needed Oxycodone-Acetaminophen Discontinued 1 - 2 TABLET PO EVERY 4 HOURS NEEDED August 23, 2014 12:00am September 05, 2019 3:49pm azithromycin 250 mg oral tablet (7 sources) Macrolide Antimicrobial Start: 12-30-2023 End: 01-14-2024 take 2-5 tablets by mouth once daily Azithromycin 250 mg tablet Discontinued 0 PO .COMPLEX 6 0 December 30, 2023 1:00am January 14, 2024 3:34pm take 500 mg today (day 1), then 250 mg for 4 days (days 2-5) PO docusate sodium 100 mg oral capsule (11 sources) Start: 08-23-2014 End: 09-05-2019 take 1 capsule by mouth twice daily Docusate Sodium 100 MG capsule Discontinued 100 mg PO TWICE A DAY 30 August 23, 2014 12:00am September 05, 2019 3:50pm Estradiol (Vivelle-Dot) 0.025 mg/24 hr patch semiweekly (3 sources) Start: 06-06-2024 End: 08-07-2024 apply 1 dose transdermal route two times weekly, then apply 1 dose transdermal route every hour Estradiol (Vivelle-Dot) 0.025 mg/24 hr patch semiweekly Discontinued 1 NMA TD TWICE A WEEK 8 June 06, 2024 12:00am August 07, 2024 10:41am apply 1 patch for 3 days alternating with 1 patch for 4 days each week Start: 06-06-2024 End: 08-07-2024 apply 1 dose transdermal route two times weekly, then apply 1 dose transdermal route every hour Estradiol (Vivelle-Dot) 0.025 mg/24 hr patch semiweekly Discontinued 1 NMA TD TWICE A WEEK June 06, 2024 12:00am August 07, 2024 10:41am apply 1 patch for 3 days alternating with 1 patch for 4 days each week Estradiol (Vivelle-Dot) 0.1 mg/24 hr patch semiweekly (2 sources) Start: 05-16-2025 End: 05-31-2025 Estradiol (Vivelle-Dot) 0.1 mg/24 hr patch semiweekly Discontinued 1 NMA TD TWICE A WEEK 8 May 16, 2025 12:00am May 31, 2025 9:09am apply 1 patch for 3 days alternating with 1 patch for 4 days each week for 3 wks per 4-wk cycle Estradiol-Norethindron e Acet (4 sources) Estrogen Start: 05-31-2025 End: 07-24-2025 take 1 tablet by mouth once daily Estradiol-Norethindro ne Acet (Activella) 1-0.5 mg tablet Discontinued 1 {tbl} PO daily 90 May 31, 2025 12:00am July 24, 2025 11:14am 2 ml sodium hyaluronate 15 mg/ml prefilled syringe (11 sources) Start: 12-16-2018 End: 07-11-2019 Sodium Hyaluronate (Viscosup) (Orthovisc) 30 mg/2 mL syringe Discontinued 30 mg INTRAARTIC EVERY WEEK 8 0 December 16, 2018 1:00am July 11, 2019 2:42pm ibuprofen 800 mg oral tablet (11 sources) Nonsteroidal Anti-inflammatory Drug Start: 08-23-2014 End: 09-05-2019 take 1 tablet by mouth three times daily as needed for pain Ibuprofen 800 MG tablet Discontinued 800 mg PO 3 TIMES DAILY NEEDED as needed for Abdominal Pain 60 1 August 23, 2014 12:00am September 05, 2019 3:50pm methylPREDNISolone 4 mg oral tablet (7 sources) Corticosteroid Start: 12-30-2023 End: 01-05-2024 take 1 tablet by mouth once Methylprednisolone (Medrol (Jose)) 4 mg tablets,dose pack Discontinued 4 mg PO per package directions 21 6 0 December 30, 2023 1:00am January 04, 2024 1:00am January 05, 2024 1:04am predniSONE 5 mg oral tablet (7 sources) Start: 02-22-2024 End: 05-05-2024 Prednisone 5 mg tablets,dose pack Discontinued 0 PO per package directions February 22, 2024 12:00am May 05, 2024 9:27am lateral epicondylitis PO PER PKG DIR Start: 02-22-2024 Prednisone Act charles 0 PO per package directions February 22, 2024 12:00am PO PER PKG DIR Vit,Frank 94-Pukq-Hhvps 1 TABLET tablet (4 sources) Start: 05-02-2014 End: 09-05-2019 Vit,Frank 43-Lbzm-Aahzc 1 TABLET tablet Discontinued 1 {tbl} PO DAILY May 02, 2014 12:00am September 05, 2019 3:50pm Vit,Gzec01-Uonh-Roeds (6 sources) Start: 05-02-2014 End: 09-05-2019 take 1 tablet by mouth once daily Vit,Tmqg21-Bidw-Riymx Discontinued 1 TABLET PO DAILY May 02, 2014 12:00am September 05, 2019 3:50pm Start: 05-02-2014 End: 09-05-2019 take 1 tablet by mouth once daily Vit,Wrno40-Wlox-Iafbc Discontinued 1 TABLET PO DAILY May 01, 2014 11:00pm September 05, 2019 2:50pm Vit,Ibba53-Pyii-Vofkl 1 TABLET tablet (1 source) Start: 05-02-2014 End: 09-05-2019 take 1 tablet by mouth once daily Vit,Qvwe03-Fxjv-Whvyo 1 TABLET tablet Discontinued 1 {tbl} PO DAILY May 02, 2014 12:00am September 05, 2019 3:50pm rivaroxaban 15 mg oral tablet (20 sources) Factor Xa Inhibitor Start: 10-22-2019 End: 11-10-2019 take 1 tablet by mouth twice daily Rivaroxaban 15 MG tablet Discontinued 15 mg PO TWICE A DAY 37 19 0 October 22, 2019 1:00am November 09, 2019 1:00am November 10, 2019 1:10am Start: 10-22-2019 End: 04-05-2020 take 1 tablet by mouth once daily Rivaroxaban 20 MG tablet Discontinued 20 mg PO DAILY 30 October 22, 2019 1:00am April 05, 2020 10:20am Problems Active Problems Problem Classification Problem Date Documented Date Episodic/Chronic Acute bronchitis (9 sources) Acute bronchitis; Translations: [Acute bronchitis, unspecified] 12-30-2023 Episodic Joint disorders and dislocations; trauma-related (20 sources) Patellofemoral stress syndrome; Translations: [Patellofemoral disorders, right knee] 12-05-2021 Chronic Malaise and fatigue (3 sources) Fatigue; Translations: [Other fatigue] Onset: 09-14-2025 08-20-2025 Episodic Menopausal disorders (7 sources) Menopausal syndrome; Translations: [Menopausal and female climacteric states] Onset: 08-20-2025 05-05-2024 Chronic Miscellaneous mental health disorders (3 sources) Lack or loss of sexual desire; Translations: [Hypoactive sexual desire disorder] Onset: 08-20-2025 08-20-2025 Chronic Osteoarthritis (20 sources) Osteoarthritis of right knee joint; Translations: [Unilateral primary osteoarthritis, right knee] Onset: 08-09-2025 12-05-2021 Chronic Other connective tissue disease (8 sources) Impingement syndrome of shoulder region; Translations: [Impingement syndrome of left shoulder] 02-08-2023 Episodic Other connective tissue disease (10 sources) Iliotibial band friction syndrome of right knee; Translations: [Iliotibial band syndrome, right leg] 01-18-2023 Episodic Other connective tissue disease (1 source) Iliotibial band syndrome, right leg; Translations: [Other disorders of muscle, ligament, and fascia] 01-18-2023 Episodic Other connective tissue disease (2 sources) Impingement syndrome of left shoulder; Translations: [Other affections of shoulder region, not elsewhere classified] 02-08-2023 Episodic Other connective tissue disease (11 sources) Lateral epicondylitis of left humerus; Translations: [Lateral epicondylitis, left elbow] 04-01-2023 Episodic Other connective tissue disease (5 sources) Lateral epicondylitis, left elbow; Translations: [Lateral epicondylitis] 04-01-2023 Episodic Other connective tissue disease (2 sources) Impingement syndrome of left shoulder region; Translations: [Impingement syndrome of left shoulder] 02-08-2023 Episodic Other non-traumatic joint disorders (20 sources) Pain in right knee; Translations: [Right knee pain] Onset: 07-24-2025 01-18-2023 Episodic Other non-traumatic joint disorders (1 source) Shoulder pain; Translations: [Pain in left shoulder] 02-08-2023 Episodic Other non-traumatic joint disorders (9 sources) Effusion of right knee joint; Translations: [Effusion, right knee] 04-01-2023 Episodic Other non-traumatic joint disorders (9 sources) Pain in left shoulder; Translations: [Left shoulder pain] 02-08-2023 Episodic Other non-traumatic joint disorders (2 sources) Effusion, right knee; Translations: [Effusion of joint, lower leg] 04-01-2023 Episodic Other non-traumatic joint disorders (5 sources) Pain in left knee; Translations: [Left knee pain] Onset: 07-24-2025 07-24-2025 Episodic Spondylosis; intervertebral disc disorders; other back problems (10 sources) Neck pain; Translations: [Cervicalgia] 02-08-2023 Episodic Thyroid disorders (1 source) Nontoxic multinodular goiter; Translations: [Nontoxic multinodular goiter] Onset: 09-17-2025 Chronic Past or Other Problems Problem Classification Problem Date Documented Da te Episodic/Chronic Other screening for suspected conditions (not mental disorders or infectious disease) (6 sources) Patient encounter status; Translations: [Encounter for screening for malignant neoplasm of colon] Onset: 03-02-2025 02-12-2025 Episodic Comment on above: Cologuard negative Results Test Name Value Interpretation Reference Range Facility Testosterone, Total / Freeon 08-29-2025 TESTOSTER,FREE <.04 Abnormal 0.10-0.85 [facility] Comment on above: Order Comment: N Performed By: #### L [id number], L3100.5310, L500.4050 #### [facility] [address] [place], [address] TESTOSTER,TOTAL < 3 Low 4-50 [facility] Comment on above: Order Comment: N Performed By: #### L [id number], [id number], [id number] #### [facility] [address] [place], [address] TESTOSTERONE,%F 1.30 Normal 0.50-2.80 [facility] Comment on above: Order Comment: N Result Comment: Perf ormed at: - [facility] [address] [id number] Home Appliance Technician: Dwight Sierra PhD, Phone: [phone] Performed at: [facility] [id number] Home Appliance Technician: Diego Matthew MD, Phone: [phone] Performed By: #### L [id number], L3100.5310, [id number] #### [facility] [address] [place], [address] Comprehensive Metabolic Prof ilon 08-24-2025 Albumin [Mass/Vol] 4.3 g/dL Normal 3.5-5.0 [facility] Comment on above: Order Comment: MALU GOVEA ORDERED T3F CMP DR. NAGEL ORDERED TEST Performed By: #### L [id number], [id number], [id number] #### [facility] [address] [place], [address] Albumin/Globulin [Mass ratio] 2.0 {ratio} Normal 0.9-2.4 [facility] Comment on above: Order Comment: MALU GOVEA ORDERED T3F CMP DR. NAGEL ORDERED TEST Performed By: #### L [id number], [id number], [id number] #### [facility] [address] [place], [address] ALK PHOS 39 U/L Normal 35-104 [facility] Comment on above: Order Comment: MALU GOVEA ORDERED T3F CMP DR. NAGEL ORDERED TEST Performed By: #### L [id number], [id number], [id number] #### [facility] [address] [place], [address] ALT [Catalytic activity/Vol] 36 U/L High <=34 [facility] Comment on above: Order Comment: MALU GOVEA ORDERED T3F CMP DR. NAGEL ORDERED TEST Performed By: #### L [id number], [id number], [id number] #### [facility] [address] [place], [address] AST [Catalytic activity/Vol] 25 U/L Normal <=31 [facility] Comment on above: Order Comment: MALU GOVEA ORDERED T3F CMP DR. NAGEL ORDERED TEST Performed By: #### L [id number], [id number], [id number] #### [facility] [address] [place], [address] Bilirubin [Mass/Vol] 0.78 mg/dL Normal 0.00-1.30 [facility] Comment on above: Order Comment: MALU GOVEA ORDERED T3F CMP DR. NAGEL ORDERED TEST Performed By: #### L [id number], [id number], [id number] #### [facility] [address] [place], [address] BUN/CRE 31.3 RATIO High 10-20 [facility] Comment on above: Order Comment: MALU GOVEA ORDERED T3F CMP DR. NAGEL ORDERED TEST Performed By: #### L [id number], [id number], [id number] #### [facility] [address] [place], [address] Calcium [Mass/Vol] 9.4 mg/dL Normal 7.6-11.0 [facility] Comment on above: Order Comment: MALU GOVEA ORDERED T3F CMP DR. NAGEL ORDERED TEST Performed By: #### L [id number], [id number], [id number] #### [facility] [address] [place], [address] Chloride [Moles/Vol] 103 mmol/L Normal 98-108 [facility] Comment on above: Order Comment: MALU GOVEA ORDERED T3F CMP DR. NAGEL ORDERED TEST Performed By: #### L [id number], [id number], [id number] #### [facility] [address] [place], [address] CO2 [Moles/Vol] 24.6 mmol/L Normal 21.0-32.0 [facility] Comment on above: Order Comment: MALU GOVEA ORDERED T3F CMP DR. NAGEL ORDERED TEST Performed By: #### L [id number], [id number], [id number] #### [facility] [address] [place], [address] Creatinine [Mass/Vol] 0.81 mg/dL Normal 0.70-1.20 [facility] Comment on above: Order Comment: MALU GOVEA ORDERED T3F CMP DR. NAGEL ORDERED TEST Performed By: #### L [id number], [id number], [id number] #### [facility] [address] [place], [address] GAP 12 Normal 5-15 [facility] Comment on above: Order Comment: MALU GOVEA ORDERED T3F CMP DR. NAGEL ORDERED TEST Performed By: #### L [id number], [id number], [id number] #### [facility] [address] [place], [address] GFR/1.73 sq M.predicted among non-blacks MDRD (S/P/Bld) [Vol rate/Area] 89 mL/min/{1.73_m2} Normal >60 [facility] Comment on above: Order Comment: MALU GOVEA ORDERED T3F CMP DR. NAGEL ORDERED TEST Result Comment: mL/m in/1.73m2 CKD-EPI Creatinine Equation (2020) Performed By: #### L [id number], [id number], [id number] #### [facility] [address] [place], [address] Globulin (S) [Mass/Vol] 2.2 g/dL Normal 2.2-4.2 [facility] Comment on above: Order Comment: MALU GOVEA ORDERED T3F CMP DR. NAGEL ORDERED TEST Performed By: #### L [id number], [id number], [id number] #### [facility] [address] [place], [address] Glucose [Mass/Vol] 86 mg/dL Normal 70-99 [facility] Comment on above: Order Comment: MALU GOVEA ORDERED T3F CMP DR. NAGEL ORDERED TEST Performed By: #### L [id number], [id number], [id number] #### [facility] [address] [place], [address] Potassium [Moles/Vol] 4.0 mmol/L Normal 3.3-5.1 [facility] Comment on above: Order Comment: MALU GOVEA ORDERED T3F CMP DR. NAGEL ORDERED TEST Performed By: #### L [id number], [id number], [id number] #### [facility] [address] [place], [address] Sodium [Moles/Vol] 139 mmol/L Normal 133-145 [facility] Comment on above: Order Comment: MALU GOVEA ORDERED T3F CMP DR. NAGEL ORDERED TEST Performed By: #### L [id number], [id number], [id number] #### [facility] [address] [place], [address] T PROT 6.5 g/dL Normal 5.9-8.4 [facility] Comment on above: Order Comment: MALU GOVEA ORDERED T3F CMP DR. NAGEL ORDERED TEST Performed By: #### L [id number], [id number], [id number] #### [facility] [address] [place], [address] Urea nitrogen [Mass/Vol] 25 mg/dL High 4-19 [facility] Comment on above: Order Comment: MALU GOVEA ORDERED T3F CMP DR. NAGEL ORDERED TEST Performed By: #### L [id number], [id number], [id number] #### [facility] [address] [place], [address] Free T3on 08-24-2025 Free T3 [Mass/Vol] 2.4 pg/mL Normal 2.18-3.98 [facility] Comment on above: Order Comment: MALU GOVEA ORDERED T3F CMP DR. NAGEL ORDERED TEST N Performed By: #### L [id number], [id number], [id number] #### [facility] [address] [place], [address] Credit Administration Manager Office Visit Reporton 08-20-2025 Credit Administration Manager Office Visit Report [facility] [address], [address] [place] [address] OFFICE VISIT Date of Service: 08/20/25 MR#: [id number] Acct: [id number] Name: NATALIIA KRISHNAN Rep #: [id number] : 1975 Provider: Dr. Tamia Bennett, Age/Sex: 50/F Location[place] [facility] [place] Status: Signed Intake Vital Signs 01/22/25 09:19 08/20/25 13:59 08/20/25 13:59 Height 6 ft 2 in 6 ft 2 in 6 ft 2 in Weight: 170 lb 7 oz BMI 21.9 BP 137/80 H Intake Visit Reasons: Perimenopause *copay $30 Chief Complaint: Perimenopause Order Control Clerk Blood Bank Required: No Is patient in pain?: No Allergies Sulfa (Sulfonamide Antibiotics) Allergy (Verified 08/20/25 13:59) Rash Medications ???Medication ???Instructions ???Recorded ???Confirmed ???Type cholecalciferol (vitamin D3) 25 1,000 unit PO DAILY 05/02/1408/20 History mcg (1,000 unit) capsule omega-3 fatty acids-fish oil 360 1,200 mg PO DAILY 08/18/14 5 History mg-1,200 mg capsule Lactobacillus acidophilus 100 mmu cells PO DAILY 01/14/24 History coenzyme Q10 75 mg capsule (Ultra 75 mg PO QDAY 01/22/25 08/20/25 H istory CoQ10) multivitamin 1 tab PO QDAY 01/22/25 08/20/25 Hi story progesterone micronized 100 mg 300 mg (3 x 100 mg) PO QHS 90 days 01/22/25 08/20/25 Rx capsule #270 caps trazodone 100 mg tablet 100 mg PO QHS #30 TABLETS 02/14/25 08/20/25 Rx estradiol 0.1 mg/24 hr semiweekly transdermal 07/24/25 08/20/25 His tory transdermal patch (Maxine) meloxicam 7.5 mg tablet 7.5 mg PO BID PRN pain 2 weeks #28 07/24/25 08/20/25 Rx tabs Is last menstrual period known: No Post menopausal: No Patient : No : No PFSH Medical History Bilateral primary osteoarthritis of knee Left knee pain Left elbow pain Colon cancer screening History of rupture of Achilles tendon Social History Smoking Status: Never smoker alcohol intake: never substance use type: does not use caffeine: Yes what type of physical activity do you participate in: aerobics and weight training frequency: 5-6 times per week additional social history: : Gustavo GASTELUM Perimenopause *copay $30 Details: The patient is a 50-year-old female with a history of menopausal symptoms presenting for a follow-up visit. Menopausal Symptoms - Currently on estrogen patch therapy. - Recently tried oral estrogen but discontinued after one week due to a 7 lb weight gain; weight returned to baseline after discontinuation. - Reports improvement in night sweats with the estrogen patch, but symptoms returned after discontinuing oral estrogen. - Experiences night sweats almost every night, requiring a change of clothes or use of the bathroom around 3:00 AM. - Night sweats and waking up do not bother her significantly. - Reports a significant reduction in anxiety since starting the estrogen patch. - Taking vitamin D supplements daily. - Family history of thyroid issues. Low Libido - Reports a lack of motivation for sexual activity, stating, I'm just not motivated. - has noticed a decrease in her sexual motivation. - Once sexual activity is initiated and ongoing for about 20 minutes, she finds it satisfactory. - Requests a refill for Prometrium. History Elective abortions Hx Para 3 Spontaneous abortions Hx # Term Pregnancies Ectopic pregnancies Hx # Pregnancies Multiple births # of living children Past Pregnancies Del. Date Name GA/Weeks Outcome Route Bth Weight Infant Gen Labor Lgth Anesthesia Del Locatn Provider FOB Unknown oJrge Unknown Araivnd Unknown Eyad Unknown Emerson ROS Const ROS Unobtainable: All systems reviewed are unremarkable except as noted in H Resp Resp: Reports system reviewed and no additional complaints, except as documented; Denies cough GI GI: Reports as per HPI Psych Psych: Reports system reviewed and no additional complaints, except as documented Exam Const General: cooperative, healthy appearing, comfortable and no acute distress Resp Effort Inspection: normal respiratory effort Skin General: no rashes or lesions noted Psych Appearance: grossly normal Speech and Movement: speech and movement normal Coding Level of Care Code Off vis,est,level 4 Diagnoses Fatigue R53.83 Hypoactive sexual desire F52.0 Female climacteric state N95.1 Assessment and Plan Assessment and Plan (1) Fatigue: Status: Acute (2) Hypoactive sexual desire: Status: Acute (3) Female climacteric state: Status: Acute Orders: Orders Thyroid Stim Hormone (TSH) Today R53.83 - Other fatigue Free T4 Today R53.83 - Other fatigue P (more content not included)... Normal [facility] T4 Free Directon 08-20-2025 T4 FREE DIRECT 1.50 ng/dL High 0.76-1.46 [facility] Comment on above: Performed By: #### L 506.0400, L501.9520 #### [facility] [address] [place], [place], [id number] T4 freeOrdered By: Tamia Solorio on 08-20-2025 Free T4 [Mass/Vol] 1.50 ng/dL High 0.76-1.46 [facility] TSH DL <= 0.005 mIU/L QnOrde red By: Tamia Solorio on 08-20-2025 TSH Qn 0.125 uIU/mL Low 0.300-4.200 [facility] Thyroid Stim Hormone (TSH)on 08-20-2025 TSH 0.125 uIU/mL Low 0.300-4.200 [facility] Comment on above: Performed By: #### L 506.0400, L501.9520 #### [facility] [address] [place], [place], [address] Orthopedic Visit Reporton Orthopedic Visit Report [facility] [address] [place] [address] [address] [place], [place] [address] OFFICE VISIT Date of Service: 08/09/25 MR#: [id number] Acct: [id number] Name: NATALIIA KRISHNAN MARIA VICTORIA Rep #: [id number] : 1975 Provider: Dr. Major stafford MD Age/Sex: 50/F Location: [facility]MS.DAT Status: Signed with Addenda ADDENDUM by ANGELES Syed on 08/09/25 at 1319 Office Procedure Documentation entered by Guanaco Syed MA 08/09/25 13:19: Ortho Injections Injections Yes Knee Bilateral Is this a patient provided medication?: No Details: Obtained consent for injection. Under sterile conditions, injected the patients bilateral knee with 2cc Kenalog, 4cc Bupivacaine x 2. The patient tolerated the injection well without any noted complication. Patient should call our office if redness develops, pain worsens or if they have any concerns. Office Meds Kenalog 40 mg/mL suspension for injection Performing Provider: Major oHdgson MD Performing Location: [facility] Administered by: Major Hodgson MD on 08/09/25 13:16 Dose Route Admin Location Dispensed Lot Number Expiration Date Package NDC NDC Exposure Machine Operator 40 mg intra-articular Bilateral knee 1 mL [id number] 11/22/26 27555-327-13 [id number] [facility] Date cc: * Signed Intake Vital Signs 01/22/25 09:19 Height 6 ft 2 in Intake Visit Reasons: BL KNEE Chief Complaint: Bilateral Knee Steroid Injections Accompanied by: Self Is patient in pain?: Yes Pain scale (1-10): 3 Allergies Sulfa (Sulfonamide Antibiotics) Allergy (Verified 08/09/25 11:39) Rash Medications ???Medication ???Instructions ???Recorded ???Confirmed ???Type cholecalciferol (vitamin D3) 25 1,000 unit PO DAILY 05/02/1408/09 History mcg (1,000 unit) capsule omega-3 fatty acids-fish oil 360 1,200 mg PO DAILY 08/18/14 5 History mg-1,200 mg capsule Lactobacillus acidophilus 100 mmu cells PO DAILY 01/14/24 History coenzyme Q10 75 mg capsule (Ultra 75 mg PO QDAY 01/22/25 08/09/25 H istory CoQ10) multivitamin 1 tab PO QDAY 01/22/25 08/09/25 Hi story progesterone micronized 100 mg 300 mg (3 x 100 mg) PO QHS 90 days 01/22/25 08/09/25 Rx capsule #270 caps trazodone 100 mg tablet 100 mg PO QHS #30 TABLETS 02/14/25 08/09/25 Rx estradiol 0.1 mg/24 hr semiweekly transdermal 07/24/25 08/09/25 His tory transdermal patch (Maxine) meloxicam 7.5 mg tablet 7.5 mg PO BID PRN pain 2 weeks #28 07/24/25 08/09/25 Rx tabs PFSH Medical History Bilateral primary osteoarthritis of knee Left knee pain Left elbow pain Colon cancer screening History of rupture of Achilles tendon Social History Smoking Status: Never smoker alcohol intake: never substance use type: does not use caffeine: Yes what type of physical activity do you participate in: aerobics and weight training frequency: 5-6 times per week additional social history: : Gustavo GASTELUM BL KNEE Details: This documentation accurately reflects the service provided and the decisions made by me, Dr. Major Hodgson MD 08/09/25 1105. Part of today???s visit was documented by [ ], acting as scribe. NATALIIA KRISHNAN is a 50 year old F here today for bilateral knee pain osteoarthritis wants to go ahead with the cortisone injections. Coding Level of Care Code Attention Napper Tender Diagnoses Bilateral primary osteoarthritis of knee M17.0 Comment 73202 and cpt inject major joint x 2 Assessment and Plan Assessment and Plan (1) Bilateral primary osteoarthritis of knee: Status: Acute Plan: NATALIIA KRISHNAN is a 50 year old F here today for bilateral knee pain osteoarthritis wants to go ahead with the cortisone injections. FU 6 weeks or PRN. Right knee intra-articular cortisone injection We discussed the pros and cons risks and benefits of going ahead with right knee intra-articular cortisone injection. The risks include but are not limited to infection, pain, acute flare re action, stiffness, bleeding, damage to surrounding structures, worsening arthritis or damage to the cartilage. The patient wished to proceed. The anterior aspect of the knee was prepped with chlorhexidine in the usual sterile fashion. Sterile no touch technique was employed. Used Gebauer spray per bottle instructions. 2 cc of 40 mg/mL Kenalog with 4 cc of 0.25% bupivicaine was injected into the intra-articular portion of the knee. Bandage placed. The patient tolerated procedure well. There is no complications. Standard post procedure care instructions were given. Red flag symptoms were discussed in which case to return (more content not included)... Normal [facility] Knee 4 or More Viewson 07-24 Knee 4 or More Views [facility] [address], [place] [address] Knee 4 or More Views MR#: [id number] Acct: [id number] Name: NATALIIA KRISHNAN [facility] Rep #: [id number] : 1975 F 50 From: Akil Mcmullen MD PCP: Dr. Thuy Lu MD Status: DEP AMB Study: Knee 4 or More Views Date of Exam: 07/24/25 Exam# [id number] Ordering Dr: Major Hodgson MD EXAM: XR Right Knee Complete, 4 or More Views CLINICAL INDICATION: PAIN, NKI TECHNIQUE: Four or more views of the right knee. COMPARISON: No relevant prior studies available. FINDINGS: BONES/JOINTS: Unremarkable. No acute fracture. No dislocation. SOFT TISSUES: Unremarkable. RAD/Knee 4 or More Views IMPRESSION: No acute fracture. Reading Location: [facility] CC: Dr. Thuy Lu MD; Dr. Major Hodgson MD Electric Locomotive Crane Operator: Signed Normal [facility] Knee 4 or More Views [facility] [address], [place] [id number] Knee 4 or More Views MR#: [id number] Acct: [id number] Name: NATALIIA KRISHNAN MARIA VICTORIA Rep #: [id number] : 1975 F 50 From: Akil Mcmullen MD PCP: Dr. Thuy Lu MD Status: DEP AMB Study: Knee 4 or More Views Date of Exam: 07/24/25 Exam# [id number] Ordering Dr: Major Hodgson MD EXAM: XR Left Knee Complete, 4 or More Views CLINICAL INDICATION: PAIN, NKI TECHNIQUE: Four or more views of the left knee. COMPARISON: XR Knee dated 01/18/2023 FINDINGS: BONES/JOINTS: Unremarkable. No acute fracture. No dislocation. SOFT TISSUES: Soft tissue swelling. RAD/Knee 4 or More Views IMPRESSION: Soft tissue swelling. Reading [facility] CC: Dr. Thuy Lu MD; Dr. Major Hodgson MD Electric Locomotive Crane Operator: Signed Normal [facility] Orthopedic Visit Reporton Orthopedic Visit Report [facility] [address] [place] [address] OFFICE VISIT Date of Service: 07/24/25 MR#: [id number] Acct: [id number] Name: NATALIIA KRISHNAN Rep #: [id number] : 1975 Provider: Dr. Major stafford MD Age/Sex: 50/F Location: [facility] Status: Signed Intake Vital Signs 01/22/25 09:19 Height 6 ft 2 in Intake Visit Reasons: BL KNEES Chief Complaint: Bilateral Knee Pain Accompanied by: Self Is patient in pain?: Yes Pain scale (1-10): 4 Allergies Sulfa (Sulfonamide Antibiotics) Allergy (Verified 07/24/25 11:14) Rash Medications ???Medication ???Instructions ???Recorded ???Confirmed ???Type cholecalciferol (vitamin D3) 25 1,000 unit PO DAILY 05/02/1407/24 History mcg (1,000 unit) capsule omega-3 fatty acids-fish oil 360 1,200 mg PO DAILY 08/18/14 5 History mg-1,200 mg capsule Lactobacillus acidophilus 100 mmu cells PO DAILY 01/14/24 History coenzyme Q10 75 mg capsule (Ultra 75 mg PO QDAY 01/22/25 07/24/25 H istory CoQ10) multivitamin 1 tab PO QDAY 01/22/25 07/24/25 Hi story progesterone micronized 100 mg 300 mg (3 x 100 mg) PO QHS 90 days 01/22/25 07/24/25 Rx capsule #270 caps trazodone 100 mg tablet 100 mg PO QHS #30 TABLETS 02/14/25 07/24/25 Rx estradiol 0.1 mg/24 hr semiweekly transdermal 07/24/25 07/24/25 His tory transdermal patch (Maxnie) meloxicam 7.5 mg tablet 7.5 mg PO BID PRN pain 2 weeks #28 07/24/25 07/24/25 Rx tabs PFSH Medical History (Updated 07/24/25 @ 11:44 by Major Hodgson MD) Bilateral primary osteoarthritis of knee Left knee pain Left elbow pain Colon cancer screening History of rupture of Achilles tendon Social History Smoking Status: Never smoker alcohol intake: never substance use type: does not use caffeine: Yes what type of physical activity do you participate in: aerobics and weight training frequency: 5-6 times per week additional social history: : Gustavo GASTELUM BL KNEES Details: This documentation accurately reflects the service provided and the decisions made by me, Dr. Major Hodgson MD 07/24/25 0953. Part of today???s visit was documented by [ ], acting as scribe. NATALIIA KRISHNAN is a 50 year old F here today for bilat knee pain. Prior 2 years ago had R knee MRI and synvisc one injection for OA. NEED XR. does cardio, lunges, wants to do strength training, 1 month history, pain and swelling, around the medial side of the knees and around the whole knee, left is worse. yes catching and locking. synvisc injection had it - 2 years ago - thought it did. Supplemental Info [facility] Imaging Services [address] [place] [address] Lower Ext Joint Only (Routine) MR#: [id number] Acct: [id number] Name: NATALIIA KRISHNAN Rep #: [id number] : 1975 F 47 From: Josue Whitt MD PCP: Dr. Yadira Reeves MD Status: REG CLI Study: Lower Ext Joint Only (Routine) Date of Exam: 04/16/23 Exam# [id number] Ordering Dr: Ari Weaver PA STUDY: MRI RIGHT KNEE REASON FOR EXAM: Female, 47 years old. Effusion TECHNIQUE: Standardized fat and water weighted pulse sequences were obtained in all 3 orthogonal planes. COMPARISON: X-ray of the right knee dated May 13, 2020 FINDINGS: Normal medial meniscus. Normal hyaline cartilage of the medial femorotibial compartment. Normal medial femoral condyle and tibial plateau. Normal medial collateral ligamentous complex (MCL). Normal distal semimembranosus, gracilis and semitendinosus tendons. There is mild intra-substance myxoid degeneration of the posterior horn of the lateral meniscus, but without a demonstrated meniscal tear. A 4.2 mm near full-thickness cartilage loss defect is present in the posterior midline aspect of the lateral femoral condyle involving a 4.2 mm region. Normal remaining hyaline cartilage of the lateral femorotibial compartment. Normal lateral femoral condyle and tibial plateau. Normal proximal tibiofibular articulation. Normal lateral collateral (fibular) ligament. Normal popliteus tendon. Normal biceps femoris tendon. Normal anterior cruciate ligament (ACL). Normal posterior cruciate ligament (PCL). Normal congruent patellofemoral articulation. There is full-thickness loss of cartilage over the lower pole of the lateral patellar facet with mild subchondral cystic changes and reactive edema. The cartilage in the remaining aspects of the patellofemoral compartment is fully preserved. Normal medial and lateral patellar re (more content not included)... Normal [facility] Orthopedic Visit Reporton Orthopedic Visit Report [facility] [address] [place], [place] [id number] OFFICE VISIT Date of Service: 03/26/25 MR#: [id number] Acct: [id number] Name: NATALIIA KRISHNAN Rep #: [id number] : 1975 Provider: Dr. Major stafford MD Age/Sex: 49/F Location: [facility] Status: Signed with Addenda ADDENDUM by ANGELES Syed on 03/26/25 at 1407 Office Procedure Documentation entered by Guanaco Syed MA 03/26/25 14:07: Ortho Injections Injections Is this a patient provided medication?: No Details: Obtained consent for injection. Under sterile conditions, injected the patients Left elbow with 1cc Kenalog, and 2cc Bupivacaine. The patient tolerated the injection well without any noted com plication. Patient should call our office if redness develops, pain worsens or if they have any concerns. Office Meds Kenalog 40 mg/mL suspension for injection Performing Provider: Major Hodgson MD Performing Location: [facility] Administered by: Major Hodgson MD on 03/26/25 14:05 Dose Route Admin Location Dispensed Lot Number Expiration Date REY Ruiz ufacturer 40 mg intra-articular Left elbow 1 mL [id number] 03/22/26 5130-9648-45 [facility] cc: * Signed Intake Vital Signs 01/22/25 09:19 Height 6 ft 2 in Intake Visit Reasons: LEFT ELBOW Accompanied by: Self Is patient in pain?: Yes (throbbing pain) Pain scale (1-10): 7 Allergies Sulfa (Sulfonamide Antibiotics) Allergy (Verified 03/26/25 13:17) Rash Medications ???Medication ???Instructions ???Recorded ???Confirmed ???Type cholecalciferol (vitamin D3) 25 1,000 unit PO DAILY 05/02/1403/26 History mcg (1,000 unit) capsule omega-3 fatty acids-fish oil 360 1,200 mg PO DAILY 08/18/14 5 History mg-1,200 mg capsule Lactobacillus acidophilus 100 mmu cells PO DAILY 01/14/24 History coenzyme Q10 75 mg capsule (Ultra 75 mg PO QDAY 01/22/25 03/26/25 H istory CoQ10) estradiol 0.0375 mg/24 hr 1 patch transdermal 2XW 90 days 03/26/25 Rx semiweekly transdermal patch #24 ea (Vivelle-Dot) multivitamin 1 tab PO QDAY 01/22/25 03/26/25 Hi story progesterone micronized 100 mg 300 mg (3 x 100 mg) PO QHS 90 days 01/22/25 03/26/25 Rx capsule #270 caps trazodone 100 mg tablet 100 mg PO QHS #30 TABLETS 02/14/25 03/26/25 Rx PFSH Medical History Colon cancer screening History of rupture of Achilles tendon Social History Smoking Status: Never smoker alcohol intake: never substance use type: does not use caffeine: Yes what type of physical activity do you participate in: aerobics and weight training frequency: 5-6 times per week additional social history: : Gustavo GASTELUM LEFT ELBOW Details: This documentation accurately reflects the service provided and the decisions made by me, Dr. Major Hodgson MD 03/26/25 09. Part of today???s visit was documented by [ ], acting as scribe. NATALIIA KRISHNAN is a 49 year old F here today for 8 months FU left lateral epicondylitis. These have been working well. Noticed a little bit of discoloration on the lateral aspect of the elbow but no other concerns. Coding Level of Care Code Attention Napper Tender Diagnoses Left lateral epicondylitis M77.12 Comment 72174 and CPT inject elbow tendon Assessment and Plan Assessment and Plan (1) Left lateral epicondylitis: Status: Acute Plan: 49-year-old female left lateral epicondylitis. Interested to try a repeat injection. FU PRN. Left elbow lateral epicondyle cortisone injection We discussed the pros and cons risks and benefits of going ahead with left elbow lateral epicondyle cortisone injection. The risks include but are not limited to infection, pain, acute flare reaction, stiffness, bleeding, damage to surrounding structures, tendon / ligament, worsening arthritis or damage to the cartilage. The patient wished to proceed. The lateral aspect of the elbow was prepped with chlorhexidine in the usual sterile fashion. Sterile no touch technique was employed. Used Gebauer spray per bottle instructions. Preprocedure timeout performed. 1 cc of 40 mg/mL Kenalog with 2 cc of 0.25% bupivicaine was injected at the right elbow lateral epicondyle. Bandage placed.The patient tolerated procedure well. There is no complications. Standard post procedure care instructions were given. Red flag symptoms were discussed in which case to return to clinic immediately or go to the emergency department such as redness, swelling, fever, discharge, drainage, increase pain or other symptoms. Tennis elbow, or la (more content not included)... Normal [facility] Thyroid Antibodieson 025 TG AB 20.1 IU/mL High 0.0-0.9 [facility] Comment on above: Result Comment: Thyr oglobulin Antibody measured by [employer] It should be noted that the presence of thyroglobulin antibodies may not be pathogenic nor diagnostic, especially at very low levels. The assay market maker has found that four percent of individuals without evidence of thyroid disease or autoimmunity will have positive TgAb levels up to 4 IU/mL. Performed at: [employer] [address] [id number] Home Appliance Technician: Dwight Sierra PhD, Phone: [phone] Performed By: #### L 3300.6750, L501.9520, L500.4050, L506.1001, L506.0400 ####[facility] [address] [place], [place], [id number] THYR PEROX AB 212 IU/mL High 0-34 [facility] Comment on above: Performed By: #### L 3300.6750, L501.9520, L500.4050, L506.1001, L506.0400 ####[facility] [address] [place], [place], [id number] Comprehensive Metabolic Prof ilon 03-21-2025 Albumin [Mass/Vol] 4.2 g/dL Normal 3.5-5.0 [facility] Comment on above: Performed By: #### L 3300.6750, L501.9520, L500.4050, L506.1001, L506.0400 ####[facility] [address] [place], [place], [address] Albumin/Globulin [Mass ratio] 1.8 {ratio} Normal 0.9-2.4 [facility] Comment on above: Performed By: #### L 3300.6750, L501.9520, L500.4050, L506.1001, L506.0400 ####[facility] [address] [place], [address] ALK PHOS 44 U/L Normal 35-104 [facility] Comment on above: Performed By: #### L 3300.6750, L501.9520, L500.4050, L506.1001, L506.0400 ####[facility] [address] [place], [address] ALT [Catalytic activity/Vol] 39 U/L High <=34 [facility] Comment on above: Performed By: #### L 3300.6750, L501.9520, L500.4050, L506.1001, L506.0400 ####[facility] [address] [place], [address] AST [Catalytic activity/Vol] 25 U/L Normal <=31 [facility] Comment on above: Performed By: #### L 3300.6750, L501.9520, L500.4050, L506.1001, L506.0400 ####[facility] [address] [place], [address] Bilirubin [Mass/Vol] 0.45 mg/dL Normal 0.00-1.30 [facility] Comment on above: Performed By: #### L 3300.6750, L501.9520, L500.4050, L506.1001, L506.0400 ####[facility] [address] [place], [address] BUN/CRE 17.0 RATIO Normal 10-20 [facility] Comment on above: Performed By: #### L 3300.6750, L501.9520, L500.4050, L506.1001, L506.0400 ####[facility] [address] [place], [address] Calcium [Mass/Vol] 9.3 mg/dL Normal 7.6-11.0 [facility] Comment on above: Performed By: #### L 3300.6750, L501.9520, L500.4050, L506.1001, L506.0400 ####[facility] [address] [place], [address] Chloride [Moles/Vol] 105 mmol/L Normal 98-108 [facility] Comment on above: Performed By: #### L 3300.6750, L501.9520, L500.4050, L506.1001, L506.0400 ####[facility] [address] [place], [address] CO2 [Moles/Vol] 27.4 mmol/L Normal 21.0-32.0 [facility] Comment on above: Performed By: #### L 3300.6750, L501.9520, L500.4050, L506.1001, L506.0400 ####[facility] [address] [place], [address] Creatinine [Mass/Vol] 0.96 mg/dL Normal 0.70-1.20 [facility] Comment on above: Performed By: #### L 3300.6750, L501.9520, L500.4050, L506.1001, L506.0400 ####[facility] [address] [place], [address] GAP 9 Normal 5-15 [facility] Comment on above: Performed By: #### L 3300.6750, L501.9520, L500.4050, L506.1001, L506.0400 ####[facility] [address] [place], [address] GFR/1.73 sq M.predicted among non-blacks MDRD (S/P/Bld) [Vol rate/Area] 73 mL/min/{1.73_m2} Normal >60 [facility] Comment on above: Result Comment: mL/m in/1.73m2 CKD-EPI Creatinine Equation (2020) Performed By: #### L 3300.6750, L501.9520, L500.4050, L506.1001, L506.0400 ####[facility] [address] [place], [address] Globulin (S) [Mass/Vol] 2.3 g/dL Normal 2.2-4.2 [facility] Comment on above: Performed By: #### L 3300.6750, L501.9520, L500.4050, L506.1001, L506.0400 ####[facility] [address] [place], [address] Glucose [Mass/Vol] 85 mg/dL Normal 70-99 [facility] Comment on above: Performed By: #### L 3300.6750, L501.9520, L500.4050, L506.1001, L506.0400 ####[facility] [address] [place], [address] Potassium [Moles/Vol] 4.0 mmol/L Normal 3.3-5.1 [facility] Comment on above: Performed By: #### L 3300.6750, L501.9520, L500.4050, L506.1001, L506.0400 ####[facility] [address] [place], [address] Sodium [Moles/Vol] 141 mmol/L Normal 133-145 [facility] Comment on above: Performed By: #### L 3300.6750, L501.9520, L500.4050, L506.1001, L506.0400 ####[facility] [address] [place], [address] T PROT 6.5 g/dL Normal 5.9-8.4 [facility] Comment on above: Performed By: #### L 3300.6750, L501.9520, L500.4050, L506.1001, L506.0400 ####[facility] [address] [place], [address] Urea nitrogen [Mass/Vol] 16 mg/dL Normal 4-19 [facility] Comment on above: Performed By: #### L 3300.6750, L501.9520, L500.4050, L506.1001, L506.0400 ####[facility] [address] [place], [address] T4 Free Directon 03-21-2025 T4 FREE DIRECT 1.30 ng/dL Normal 0.76-1.46 [facility] Comment on above: Performed By: #### L 3300.6750, L501.9520, L500.4050, L506.1001, L506.0400 ####[facility] [address] [place], [address] Thyroid Stim Hormone (TSH)on 03-21-2025 TSH 1.060 uIU/mL Normal 0.300-4.200 [facility] Comment on above: Performed By: #### L 3300.6750, L501.9520, L500.4050, L506.1001, L506.0400 ####[facility] [address] [place], [address] Vitamin D,25 Hydroxyon 03-21 Vitamin D 25-OH 95.0 ng/mL Normal 30-100 [facility] Comment on above: Result Comment: Digna min D Status Deficiency: <20 ng/mL (50nmol/L) Insufficiency: 20-30 ng/mL (50-75 nmol/L) Sufficiency: 30-100 ng/mL (75-250 nmol/L) Toxicity: >100 ng/mL (>250 nmol/L) Performed By: #### L 3300.6750, L501.9520, L500.4050, L506.1001, L506.0400 ####[facility] [address] [place], [place], [id number] Mercury, Bloodon 03-06-2025 MERCURY,BLOOD 11.3 ug/L Normal 0.0-14.9 [facility] Comment on above: Order Comment: Test( s) [id number], Bloodwas developed and its performance characteristicsdetermined by [employer]. It has not been cleared or approvedby the Food and Drug Administration. Result Comment: Dete ction Limit = 1.0 Performed at: [address] [id number] Home Appliance Technician: Diego Matthew MD, Phone: [phone] Performed By: #### L 500.4050, L501.9520, L503.6030, L100.0100, L503.6550, L500.4100, L3300.4875 ####[facility] [address] [place], [place], [address] Absolute neutrophil countOrd ered By: Thuy Lu on 03-01-2025 Neutrophils (Bld) [#/Vol] 5.0 10*3/uL 2.0-7.7 [facility] Anion gap in Serum or Plasma Ordered By: Thuy Lu on 03-01-2025 Anion gap [Moles/Vol] 13 mmol/L 04-05 [facility] BUN/creatinine ratioOrdered By: Thuy Lu on 03-01-2025 Urea nitrogen/Creatinine [Mass ratio] 23.8 mg/mg High - [facility] Basophil percentageOrdered B y: Thuy Lu on 03-01-2025 Basophils/100 WBC (Bld) 0.6 % 0- [facility] Bilirubin, totalOrdered By: Thuy Lu on 03-01-2025 Bilirubin [Mass/Vol] 0.39 mg/dL 0.00-1.30 [facility] CBC W/Diff, Automatedon 02-20 Absolute Lymph 1.41 X10 3/uL Normal 0.83-4.51 [facility] Comment on above: Order Comment: Order Date: 03/01/25Order Info: [id number] - CBCDPERIPHERAL SMEAR Performed By: #### L 500.4050, L501.9520, L503.6030, L100.0100, L503.6550, L500.4100, L3300.4875 ####[facility] [address] [place], [address] Absolute Neut 5.0 X10 3/uL Normal 2.0-7.7 [facility] Comment on above: Order Comment: Order Date: 03/01/25Order Info: [id number] - CBCDPERIPHERAL SMEAR Performed By: #### L 500.4050, L501.9520, L503.6030, L100.0100, L503.6550, L500.4100, L3300.4875 ####[facility] [address] [place], [place], [phone] Basophils/100 WBC (Bld) 0.6 % Normal 0-1 [facility] Comment on above: Order Comment: Order Date: 03/01/25Order Info: 0184-1 - CBCDPERIPHERAL SMEAR Performed By: #### L 500.4050, L501.9520, L503.6030, L100.0100, L503.6550, L500.4100, L3300.4875 ####[facility] [address] [place], [address] Eosinophils/100 WBC (Bld) 0.6 % Normal 0-5 [facility] Comment on above: Order Comment: Order Date: 03/01/25Order Info: 0184-1 - CBCDPERIPHERAL SMEAR Performed By: #### L 500.4050, L501.9520, L503.6030, L100.0100, L503.6550, L500.4100, L3300.4875 ####[facility] [address] [place], [address] Erythrocyte distribution width (RBC) [Ratio] 12.5 % Normal 11.6-14.6 [facility] Comment on above: Order Comment: Order Date: 03/01/25Order Info: 0184-1 - CBCDPERIPHERAL SMEAR Performed By: #### L 500.4050, L501.9520, L503.6030, L100.0100, L503.6550, L500.4100, L3300.4875 ####[facility] [address] [place], [address] Hematocrit (Bld) [Volume fraction] 40.0 % Normal 37-47 [facility] Comment on above: Order Comment: Order Date: 03/01/25Order Info: 0184-1 - CBCDPERIPHERAL SMEAR Performed By: #### L 500.4050, L501.9520, L503.6030, L100.0100, L503.6550, L500.4100, L3300.4875 ####[facility] [address] [place], [address] Hemoglobin (Bld) [Mass/Vol] 13.3 g/dL Normal 12.0-15.0 [facility] Comment on above: Order Comment: Order Date: 03/01/25Order Info: 0184-1 - CBCDPERIPHERAL SMEAR Performed By: #### L 500.4050, L501.9520, L503.6030, L100.0100, L503.6550, L500.4100, L3300.4875 ####[facility] [address] [place], [address] IG% 0.400 Normal 0.0-0.9 [facility] Comment on above: Order Comment: Order Date: 03/01/25Order Info: 0184-1 - CBCDPERIPHERAL SMEAR Result Comment: IG% - Immature Granulocytes (promyelocytes, myelocytes and metamyelocytes) > 1% indicates that a LEFT SHIFT is Present. Performed By: #### L 500.4050, L501.9520, L503.6030, L100.0100, L503.6550, L500.4100, L3300.4875 ####[facility] [address] [place], [address] Lymphocytes/100 WBC (Bld) 19.8 % Normal 19-41 [facility] Comment on above: Order Comment: Order Date: 03/01/25Order Info: 0184-1 - CBCDPERIPHERAL SMEAR Performed By: #### L 500.4050, L501.9520, L503.6030, L100.0100, L503.6550, L500.4100, L3300.4875 ####[facility] [address] [place], [address] MCH (RBC) [Entitic mass] 30.9 pg Normal 27.0-32.0 [facility] Comment on above: Order Comment: Order Date: 03/01/25Order Info: 0184-1 - CBCDPERIPHERAL SMEAR Performed By: #### L 500.4050, L501.9520, L503.6030, L100.0100, L503.6550, L500.4100, L3300.4875 ####[facility] [address] [place], [address] MCHC (RBC) [Mass/Vol] 33.3 g/dL Normal 32-36 [facility] Comment on above: Order Comment: Order Date: 03/01/25Order Info: 0184-1 - CBCDPERIPHERAL SMEAR Performed By: #### L 500.4050, L501.9520, L503.6030, L100.0100, L503.6550, L500.4100, L3300.4875 ####[facility] [address] [place], [address] MCV (RBC) [Entitic vol] 93.0 fL Normal 81-99 [facility] Comment on above: Order Comment: Order Date: 03/01/25Order Info: 0184-1 - CBCDPERIPHERAL SMEAR Performed By: #### L 500.4050, L501.9520, L503.6030, L100.0100, L503.6550, L500.4100, L3300.4875 ####[facility] [address] [place], [address] Monocytes/100 WBC (Bld) 8.9 % Normal 0-10 [facility] Comment on above: Order Comment: Order Date: 03/01/25Order Info: 0184-1 - CBCDPERIPHERAL SMEAR Performed By: #### L 500.4050, L501.9520, L503.6030, L100.0100, L503.6550, L500.4100, L3300.4875 ####[facility] [address] [place], [address] Neutrophils/100 WBC (Bld) 69.7 % Normal 47-70 [facility] Comment on above: Order Comment: Order Date: 03/01/25Order Info: 0184-1 - CBCDPERIPHERAL SMEAR Performed By: #### L 500.4050, L501.9520, L503.6030, L100.0100, L503.6550, L500.4100, L3300.4875 ####[facility] [address] [place], [address] Nucleated RBC (Bld) [#/Vol] 0 10*3/uL Normal 0-5 [facility] Comment on above: Order Comment: Order Date: 03/01/25Order Info: 0184-1 - CBCDPERIPHERAL SMEAR Performed By: #### L 500.4050, L501.9520, L503.6030, L100.0100, L503.6550, L500.4100, L3300.4875 ####[facility] [address] [place], [address] Platelet mean volume (Bld) [Entitic vol] 10.6 fL Normal 6.2-12.0 [facility] Comment on above: Order Comment: Order Date: 03/01/25Order Info: 0184-1 - CBCDPERIPHERAL SMEAR Performed By: #### L 500.4050, L501.9520, L503.6030, L100.0100, L503.6550, L500.4100, L3300.4875 ####[facility] [address] [place], [address] Platelets (Bld) [#/Vol] 206 10*3/uL Normal 150-450 [facility] Comment on above: Order Comment: Order Date: 03/01/25Order Info: 0184-1 - CBCDPERIPHERAL SMEAR Performed By: #### L 500.4050, L501.9520, L503.6030, L100.0100, L503.6550, L500.4100, L3300.4875 ####[facility] [address] [place], [address] RBC (Bld) [#/Vol] 4.30 10*6/uL Normal 4.2-5.4 [facility] Comment on above: Order Comment: Order Date: 03/01/25Order Info: 0184-1 - CBCDPERIPHERAL SMEAR Performed By: #### L 500.4050, L501.9520, L503.6030, L100.0100, L503.6550, L500.4100, L3300.4875 ####[facility] [address] [place], [address] RDW SD 42.6 fl Normal 35.1-43.9 [facility] Comment on above: Order Comment: Order Date: 03/01/25Order Info: [id number] - CBCDPERIPHERAL SMEAR Performed By: #### L 500.4050, L501.9520, L503.6030, L100.0100, L503.6550, L500.4100, L3300.4875 ####[facility] [address] [place], [address] WBC (Bld) [#/Vol] 7.1 10*3/uL Normal 4.4-11.0 [facility] Comment on above: Order Comment: Order Date: 03/01/25Order Info: [id number] - CBCDPERIPHERAL SMEAR Performed By: #### L 500.4050, L501.9520, L503.6030, L100.0100, L503.6550, L500.4100, L3300.4875 ####[facility] [address] [place], [place], [address] Calculated total iron bindin g capacityOrdered By: Thuy Lu on 03-01-2025 Total Iron Binding Capacity 329 ug/dL 250-450 [facility] Calculated very low density lipoprotein (VLDL) cholesterol measurementOrdered By: Thuy Lu on 03-01-2025 VLDL Cholesterol 11 mg/dL 5-40 [facility] Carbon dioxide, total [Moles /volume] in Central venous bloodOrdered By: Thuy Lu on 03-01-2025 CO2 [Moles/Vol] 22.6 mmol/L 21.0-32.0 [facility] Chloride assayOrdered By: Marco Antonio Lu on 03-01-2025 Chloride [Moles/Vol] 103 mmol/L 98-108 [facility] Comprehensive Metabolic Prof ilon 03-01-2025 Albumin [Mass/Vol] 4.5 g/dL Normal 3.5-5.0 [facility] Comment on above: Order Comment: Order Date: 03/01/25Order Info: [id number] - CMPOrder Info: [id number] - LIPIDOrder Info: [id number] - TSHOrder Info: [id number] - IBCOrder Info: [id number] - KORINA Performed By: #### L 500.4050, L501.9520, L503.6030, L100.0100, L503.6550, L500.4100, L3300.4875 ####[facility] [address] [place], [place], [address] Albumin/Globulin [Mass ratio] 1.8 {ratio} Normal 0.9-2.4 [facility] Comment on above: Order Comment: Order Date: 03/01/25Order Info: 785- - CMPOrder Info: [id number] - LIPIDOrder Info: [id number] - TSHOrder Info: [id number] - IBCOrder Info: [id number] - KORINA Performed By: #### L 500.4050, L501.9520, L503.6030, L100.0100, L503.6550, L500.4100, L3300.4875 ####[facility] [address] [place], [address] ALK PHOS 43 U/L Normal 35-104 [facility] Comment on above: Order Comment: Order Date: 03/01/25Order Info: [id number] - CMPOrder Info: - LIPIDOrder Info: [id number] - TSHOrder Info: [id number] - IBCOrder Info: [id number] - KORINA Performed By: #### L 500.4050, L501.9520, L503.6030, L100.0100, L503.6550, L500.4100, L3300.4875 ####[facility] [address] [place], [address] ALT [Catalytic activity/Vol] 57 U/L High <=34 [facility] Comment on above: Order Comment: Order Date: 03/01/25Order Info: [id number] - CMPOrder Info: - LIPIDOrder Info: [id number] - TSHOrder Info: [id number] - IBCOrder Info: [id number] - KORINA Performed By: #### L 500.4050, L501.9520, L503.6030, L100.0100, L503.6550, L500.4100, L3300.4875 ####[facility] [address] [place], [address] AST [Catalytic activity/Vol] 44 U/L High <=31 [facility] Comment on above: Order Comment: Order Date: 03/01/25Order Info: [id number] - CMPOrder Info: [id number] - LIPIDOrder Info: 3 - TSHOrder Info: [id number] - IBCOrder Info: [id number] - KORINA Performed By: #### L 500.4050, L501.9520, L503.6030, L100.0100, L503.6550, L500.4100, L3300.4875 ####[facility] [address] [place], [address] Bilirubin [Mass/Vol] 0.39 mg/dL Normal 0.00-1.30 [facility] Comment on above: Order Comment: Order Date: 03/01/25Order Info: [id number]- - CMPOrder Info: - LIPIDOrder Info: 3 - TSHOrder Info: [id number] - IBCOrder Info: [id number] - KORINA Performed By: #### L 500.4050, L501.9520, L503.6030, L100.0100, L503.6550, L500.4100, L3300.4875 ####[facility] [address] [place], [address] BUN/CRE 23.8 RATIO High 10-20 [facility] Comment on above: Order Comment: Order Date: 03/01/25Order Info: [id number]- - CMPOrder Info: - LIPIDOrder Info: [id number] - TSHOrder Info: [id number] - IBCOrder Info: 4 - KORINA Performed By: #### L 500.4050, L501.9520, L503.6030, L100.0100, L503.6550, L500.4100, L3300.4875 ####[facility] [address] [place], [address] Calcium [Mass/Vol] 9.7 mg/dL Normal 7.6-11.0 [facility] Comment on above: Order Comment: Order Date: 03/01/25Order Info: 785- - CMPOrder Info: - LIPIDOrder Info: [id number] - TSHOrder Info: [id number] - IBCOrder Info: [id number] - KORINA Performed By: #### L 500.4050, L501.9520, L503.6030, L100.0100, L503.6550, L500.4100, L3300.4875 ####[facility] [address] [place], [address] Chloride [Moles/Vol] 103 mmol/L Normal 98-108 [facility] Comment on above: Order Comment: Order Date: 03/01/25Order Info: [id number]- - CMPOrder Info: - LIPIDOrder Info: [id number] - TSHOrder Info: [id number] - IBCOrder Info: [id number] - KORINA Performed By: #### L 500.4050, L501.9520, L503.6030, L100.0100, L503.6550, L500.4100, L3300.4875 ####[facility] [address] [place], [address] CO2 [Moles/Vol] 22.6 mmol/L Normal 21.0-32.0 [facility] Comment on above: Order Comment: Order Date: 03/01/25Order Info: 785- - CMPOrder Info: - LIPIDOrder Info: [id number] - TSHOrder Info: [id number] - IBCOrder Info: [id number] - KORINA Performed By: #### L 500.4050, L501.9520, L503.6030, L100.0100, L503.6550, L500.4100, L3300.4875 ####[facility] [address] [place], [address] Creatinine [Mass/Vol] 1.12 mg/dL Normal 0.70-1.20 [facility] Comment on above: Order Comment: Order Date: 03/01/25Order Info: 86- - CMPOrder Info: [id number] - LIPIDOrder Info: [id number] - TSHOrder Info: [id number] - IBCOrder Info: [id number] - KORINA Performed By: #### L 500.4050, L501.9520, L503.6030, L100.0100, L503.6550, L500.4100, L3300.4875 ####[facility] [address] [place], [address] GAP 13 Normal 5-15 [facility] Comment on above: Order Comment: Order Date: 03/01/25Order Info: [id number] - CMPOrder Info: - LIPIDOrder Info: [id number] - TSHOrder Info: [id number] - IBCOrder Info: [id number] - KORINA Performed By: #### L 500.4050, L501.9520, L503.6030, L100.0100, L503.6550, L500.4100, L3300.4875 ####[facility] [address] [place], [address] GFR/1.73 sq M.predicted among non-blacks MDRD (S/P/Bld) [Vol rate/Area] 61 mL/min/{1.73_m2} Normal >60 [facility] Comment on above: Order Comment: Order Date: 03/01/25Order Info: [id number] - CMPOrder Info: - LIPIDOrder Info: [id number] - TSHOrder Info: [id number] - IBCOrder Info: [id number] - KORINA Result Comment: mL/m in/1.73m2 CKD-EPI Creatinine Equation (2020) Performed By: #### L 500.4050, L501.9520, L503.6030, L100.0100, L503.6550, L500.4100, L3300.4875 ####[facility] [address] [place], [address] Globulin (S) [Mass/Vol] 2.4 g/dL Normal 2.2-4.2 [facility] Comment on above: Order Comment: Order Date: 03/01/25Order Info: 785- - CMPOrder Info: - LIPIDOrder Info: [id number] - TSHOrder Info: [id number] - IBCOrder Info: [id number] - KORINA Performed By: #### L 500.4050, L501.9520, L503.6030, L100.0100, L503.6550, L500.4100, L3300.4875 ####[facility] [address] [place], [address] Glucose [Mass/Vol] 81 mg/dL Normal 70-99 [facility] Comment on above: Order Comment: Order Date: 03/01/25Order Info: [id number] - CMPOrder Info: - LIPIDOrder Info: [id number] - TSHOrder Info: [id number] - IBCOrder Info: [id number] - KORINA Performed By: #### L 500.4050, L501.9520, L503.6030, L100.0100, L503.6550, L500.4100, L3300.4875 ####[facility] [address] [place], [address] Potassium [Moles/Vol] 3.9 mmol/L Normal 3.3-5.1 [facility] Comment on above: Order Comment: Order Date: 03/01/25Order Info: [id number] - CMPOrder Info: - LIPIDOrder Info: [id number] - TSHOrder Info: [id number] - IBCOrder Info: [id number] - KORINA Performed By: #### L 500.4050, L501.9520, L503.6030, L100.0100, L503.6550, L500.4100, L3300.4875 ####[facility] [address] [place], [address] Sodium [Moles/Vol] 139 mmol/L Normal 133-145 [facility] Comment on above: Order Comment: Order Date: 03/01/25Order Info: [id number]- - CMPOrder Info: [id number] - LIPIDOrder Info: [id number] - TSHOrder Info: [id number] - IBCOrder Info: [id number] - KORINA Performed By: #### L 500.4050, L501.9520, L503.6030, L100.0100, L503.6550, L500.4100, L3300.4875 ####[facility] [address] [place], [address] T PROT 6.9 g/dL Normal 5.9-8.4 [facility] Comment on above: Order Comment: Order Date: 03/01/25Order Info: [id number] - CMPOrder Info: - LIPIDOrder Info: [id number] - TSHOrder Info: [id number] - IBCOrder Info: [id number] - KORINA Performed By: #### L 500.4050, L501.9520, L503.6030, L100.0100, L503.6550, L500.4100, L3300.4875 ####[facility] [address] [place], [address] Urea nitrogen [Mass/Vol] 27 mg/dL High 4-19 [facility] Comment on above: Order Comment: Order Date: 03/01/25Order Info: [id number] - CMPOrder Info: - LIPIDOrder Info: [id number] - TSHOrder Info: [id number] - IBCOrder Info: [id number] - KORINA Performed By: #### L 500.4050, L501.9520, L503.6030, L100.0100, L503.6550, L500.4100, L3300.4875 ####[facility] [address] [place], [address] Eosinophil percentageOrdered By: Thuy Lu on 03-01-2025 Eosinophils/100 WBC (Bld) 0.6 % 0-5 [facility] Erythrocyte distribution wid th (RBC) [Ratio]Ordered By: Thuy Lu on 03-01-2025 Erythrocyte distribution width (RBC) [Entitic vol] 42.6 fL 35.1-43.9 [facility] Erythrocyte distribution wid th ratioOrdered By: Thuy Aly on 03-01-2025 Erythrocyte distribution width (RBC) [Ratio] 12.5 % 11.6-14.6 [facility] Ferritinon 03-01-2025 Ferritin [Mass/Vol] 87 ng/mL Normal 22-378 [facility] Comment on above: Order Comment: Order Date: 03/01/25Order Info: [id number] - CMPOrder Info: [id number] - LIPIDOrder Info: [id number] - TSHOrder Info: [id number] - IBCOrder Info: [id number] - KORINA Performed By: #### L 500.4050, L501.9520, L503.6030, L100.0100, L503.6550, L500.4100, L3300.4875 ####[facility] [address] [place], [place], [address] GFR/1.73 sq M.predicted sun g non-blacks MDRD (S/P/Bld) [Vol rate/Area]Ordered By: Thuy Lu on 03-01-2025 Estimated GFR (MDRD) Non-Af Amer 61 >60 [facility] Comment on above: mL/min/1.73m2 CKD-EP I Creatinine Equation (2020) Hematocrit Auto (Bld) [Volum e fraction]Ordered By: Thuy Lu on 03-01-2025 Hematocrit (Bld) [Volume fraction] 40.0 % 37-47 [facility] Hemoglobin measurementOrdere d By: Thuy Lu on 03-01-2025 Hemoglobin (Bld) [Mass/Vol] 13.3 g/dL 12.0-15.0 [facility] Immature granulocytes/100 WB C Auto (Bld)Ordered By: Thuy Lu on 03-01-2025 Immature granulocytes/100 WBC (Bld) 0.400 % 0.0-0.9 [facility] Comment on above: IG% - Immature Granu locytes (promyelocytes, myelocytes and metamyelocytes) > 1% indicates that a LEFT SHIFT is Present. Iron (Unsp spec) [Mass/Mass] Ordered By: Thuy Lu on 03-01-2025 Iron [Mass/Vol] 88 ug/dL 50-170 [facility] Iron saturation [Mass fracti on]Ordered By: Thuy Lu on 03-01-2025 Iron Saturation 27.0 % 13-59 [facility] Iron+Iron Binding Capacityon 03-01-2025 Iron [Mass/Vol] 88 ug/dL Normal 50-170 [facility] Comment on above: Order Comment: Order Date: 03/01/25Order Info: [id number] - CMPOrder Info: [id number] - LIPIDOrder Info: [id number] - TSHOrder Info: - IBCOrder Info: [id number] - KORINA Performed By: #### L 500.4050, L501.9520, L503.6030, L100.0100, L503.6550, L500.4100, [id number] ####[facility] [id number] [place], [address] IRON SATURATION 27.0 Normal 13-59 [facility] Comment on above: Order Comment: Order Date: 03/01/25Order Info: [id number]- - CMPOrder Info: [id number] - LIPIDOrder Info: [id number] - TSHOrder Info: [id number] - IBCOrder Info: [id number] - KORINA Performed By: #### L 500.4050, L501.9520, L503.6030, L100.0100, L503.6550, L500.4100, L3300.4875 ####[facility] [address] [place], [address] TIBC 329 ug/dL Normal 250-450 [facility] Comment on above: Order Comment: Order Date: 03/01/25Order Info: [id number] - CMPOrder Info: [id number] - LIPIDOrder Info: 3 - TSHOrder Info: [id number] - IBCOrder Info: [id number] - KORINA Performed By: #### L 500.4050, L501.9520, L503.6030, L100.0100, L503.6550, L500.4100, L3300.4875 ####[facility] [address] [place], [address] UIBC 241 ug/dL Normal 228-428 [facility] Comment on above: Order Comment: Order Date: 03/01/25Order Info: [id number] - CMPOrder Info: [id number] - LIPIDOrder Info: [id number] - TSHOrder Info: [id number] - IBCOrder Info: [id number] - KORINA Performed By: #### L 500.4050, L501.9520, L503.6030, L100.0100, L503.6550, L500.4100, L3300.4875 ####[facility] [address] [place], [address] LDL calc ser/plasOrdered By: Thuy Lu on 03-01-2025 LDL Cholesterol, Calculated 80 mg/dL [facility] Comment on above: Urlxzshvmy=902-357 m g/dL & Higher Dwgr=558 mg/dL or greater Laboratory - Chemistry and C hemistry - challengeOrdered By: Thuy Lu on 03-01-2025 AST [Catalytic activity/Vol] 44 U/L High <32 [facility] Lipid Profileon 03-01-2025 CHOL:HDL 2.31 Normal [facility] Comment on above: Order Comment: Order Date: 03/01/25Order Info: [id number] - CMPOrder Info: [id number] - LIPIDOrder Info: [id number] - TSHOrder Info: [id number] - IBCOrder Info: [id number] - KORINA Performed By: #### L 500.4050, L501.9520, L503.6030, L100.0100, L503.6550, L500.4100, L3300.4875 ####[facility] [address] [place], [address] Cholesterol [Mass/Vol] 159 mg/dL Normal <=200 [facility] Comment on above: Order Comment: Order Date: 03/01/25Order Info: [id number] - CMPOrder Info: [id number] - LIPIDOrder Info: 3 - TSHOrder Info: [id number] - IBCOrder Info: [id number] - KORINA Result Comment: Chol esterol level, Desirable <200 mg/dL Borderline high cholesterol 200-239 mg/dL High cholesterol >=240 mg/dL Recommendations of the NCEP Adult Treatment Panel for the following risk-cutoff thresholds for the [place] population. Performed By: #### L 500.4050, L501.9520, L503.6030, L100.0100, L503.6550, L500.4100, L3300.4875 ####[facility] [address] [place], [address] Cholesterol in HDL [Mass/Vol] 69 mg/dL Normal [facility] Comment on above: Order Comment: Order Date: 03/01/25Order Info: [id number] - CMPOrder Info: [id number] - LIPIDOrder Info: [id number] - TSHOrder Info: [id number] - IBCOrder Info: [id number] - KORINA Result Comment: Lesly onal Cholesterol Education Program (NCEP) guidelines: <40 mg/dL: Low HDL-cholesterol (major risk factor for CHD) >= 60 mg/dL: High HDL-cholesterol (negative risk factor for CHD) HDL-cholesterol is affected by a number of factors, e.g. smoking, exercise, hormones, sex and age. Performed By: #### L 500.4050, L501.9520, L503.6030, L100.0100, L503.6550, L500.4100, L3300.4875 ####[facility] [address] [place], [place], [id number]) Cholesterol in LDL [Mass/Vol] 80 mg/dL Normal [facility] Comment on above: Order Comment: Order Date: 03/01/25Order Info: [id number] - CMPOrder Info: [id number] - LIPIDOrder Info: [id number] - TSHOrder Info: [id number] - IBCOrder Info: [id number] - KORINA Result Comment: Bord jatgmg=706-514 mg/dL Higher Hcfb=903 mg/dL or greater Performed By: #### L 500.4050, L501.9520, L503.6030, L100.0100, L503.6550, L500.4100, L3300.4875 ####[facility] [address] [place], [address] Cholesterol in VLDL [Mass/Vol] 11 mg/dL Normal 5-40 [facility] Comment on above: Order Comment: Order Date: 03/01/25Order Info: [id number] - CMPOrder Info: [id number] - LIPIDOrder Info: [id number] - TSHOrder Info: [id number] - IBCOrder Info: [id number] - KORINA Performed By: #### L 500.4050, L501.9520, L503.6030, L100.0100, L503.6550, L500.4100, L3300.4875 ####[facility] [address] [place], [address] Triglyceride [Mass/Vol] 53 mg/dL Normal [facility] Comment on above: Order Comment: Order Date: 03/01/25Order Info: [id number] - CMPOrder Info: [id number] - LIPIDOrder Info: [id number] - TSHOrder Info: [id number] - IBCOrder Info: [id number] - KORINA Result Comment: The drugs N-Acetylcysteine and Metamizole may falsely depress this assay. Normal range: <150 mg/dL Borderline High: 150-199 mg/dL High: 200-499 mg/dL Very High: >500 mg/dL Performed By: #### L 500.4050, L501.9520, L503.6030, L100.0100, L503.6550, L500.4100, L3300.4875 ####[facility] [address] [place], [address] Lymphocytes Auto (Unsp spec) [#/Vol]Ordered By: Thuy Lu on 03-01-2025 Lymphocytes (Bld) [#/Vol] 1.41 10*3/uL 0.83-4.51 [facility] Lymphocytes/100 WBC Auto (Un sp spec)Ordered By: Thuy Lu on 03-01-2025 Lymphocytes/100 WBC (Bld) 19.8 % 19-41 [facility] MCV (mean corpuscular volume ) determinationOrdered By: Thuy Lu on 03-01-2025 MCV (RBC) [Entitic vol] 93.0 fL 81-99 [facility] Mean corpuscular hemoglobin (MCH) determinationOrdered By: Thuy Lu on 03-01-2025 MCH (RBC) [Entitic mass] 30.9 pg 27.0-32.0 [facility] Mean corpuscular hemoglobin concentration (MCHC) determinationOrdered By: Thuy Lu on 03-01-2025 MCHC (RBC) [Mass/Vol] 33.3 g/dL 32-36 [facility] Mean platelet volume determi nationOrdered By: Thuy Lu on 03-01-2025 Platelet mean volume (Bld) [Entitic vol] 10.6 fL 6.2-12.0 [facility] Monocyte percentageOrdered B y: Thuy Lu on 03-01-2025 Monocytes/100 WBC (Bld) 8.9 % 0-10 [facility] Neutrophil percentageOrdered By: Thuy Lu on 03-01-2025 Neutrophils/100 WBC (Bld) 69.7 % 47-70 [facility] No Panel InformationOrdered By: Thuy Lu on 03-01-2025 Unsaturated Iron Binding Capacity 241 ug/dL 228-428 [facility] Nucleated red blood cell per centageOrdered By: Thuy Lu on 03-01-2025 Nucleated RBC/100 WBC (Bld) [Ratio] 0 % 0-5 [facility] Platelet countOrdered By: Marco Antonio Lu on 03-01-2025 Platelets (Bld) [#/Vol] 206 10*3/uL 150-450 [facility] Potassium (Unsp spec) [Mass/ Vol]Ordered By: Thuy Lu on 03-01-2025 Potassium [Moles/Vol] 3.9 mmol/L 3.3-5.1 [facility] RBC Auto (Bld) [#/Vol]Ordere d By: Thuy Lu on 03-01-2025 RBC (Bld) [#/Vol] 4.30 10*6/uL 4.2-5.4 [facility] Screening total cholesterol/ high density lipoprotein (HDL) cholesterol ratioOrdered By: Thuy Lu on 03-01-2025 Cholesterol.total/Chol esterol in HDL [Mass ratio] 2.31 {ratio} [facility] Serum creatinine measurement (mass/volume)Ordered By: Thuy Lu on 03-01-2025 Creatinine [Mass/Vol] 1.12 mg/dL 0.70-1.20 [facility] Serum globulin measurementOr dered By: Thuy Lu on 03-01-2025 Globulin (S) [Mass/Vol] 2.4 g/dL 2.2-4.2 [facility] Serum glucose measurement (m ass/volume)Ordered By: Thuy Lu on 03-01-2025 Glucose [Mass/Vol] 81 mg/dL 70-99 [facility] Serum or plasma alanine bernabe otransferase (ALT) measurementOrdered By: Thuy Lu on 03-01-2025 ALT [Catalytic activity/Vol] 57 U/L High <35 [facility] Serum or plasma albumin rom urement (mass/volume)Ordered By: Thuy Lu on 03-01-2025 Albumin [Mass/Vol] 4.5 g/dL 3.5-5.0 [facility] Serum or plasma albumin/glob ulin mass ratioOrdered By: Thuy Lu on 03-01-2025 Albumin/Globulin [Mass ratio] 1.8 {ratio} 0.9-2.4 [facility] Serum or plasma alkaline cheryl sphatase measurementOrdered By: Thuy Lu 03-01-2025 ALP [Catalytic activity/Vol] 43 U/L 35-104 [facility] Serum or plasma calcium rom urement (mass/volume)Ordered By: Thuy Lu on 03-01-2025 Calcium [Mass/Vol] 9.7 mg/dL 7.6-11.0 [facility] Serum or plasma cholesterol in HDL measurement (mass/volume)Ordered By: Thuy Lu on 03-01-2025 Cholesterol in HDL [Mass/Vol] 69 mg/dL >40 [facility] Comment on above: National Cholesterol Education Program (NCEP) guidelines:<40 mg/dL: Low HDL-cholesterol (major risk factor for CHD)>= 60 mg/dL: High HDL-cholesterol (negative risk factor for CHD)HDL-cholesterol is affected by a number of factors, e.g. smoking, exercise, hormones, sex and age. Serum or plasma cholesterol measurement (mass/volume)Ordered By: Thuy Lu on 03-01-2025 Cholesterol [Mass/Vol] 159 mg/dL <201 [facility] Comment on above: Cholesterol level, D esirable <200 mg/dLBorderline high cholesterol 200-239 mg/dLHigh cholesterol >=240 mg/dLRecommendations of the NCEP Adult Treatment Panel for the following risk-cutoff thresholds for the [place] population. Serum or plasma ferritin reid surement (mass/volume)Ordered By: Thuy Lu on 03-01-2025 Ferritin [Mass/Vol] 87 ng/mL 22-378 [facility] Serum or plasma urea nitroge n measurement (mass/volume)Ordered By: Thuy Lu on 03-01-2025 Urea nitrogen [Mass/Vol] 27 mg/dL High 4-19 [facility] Sodium levelOrdered By: Coco Lu on 03-01-2025 Sodium [Moles/Vol] 139 mmol/L 133-145 [facility] TSH DL <= 0.005 mIU/L QnOrde red By: Thuy Lu on 03-01-2025 Thyroid Stimulating Hormone (TSH) 1.210 uIU/mL 0.300-4.200 [facility] Thyroid Stim Hormone (TSH)on 03-01-2025 TSH 1.210 uIU/mL Normal 0.300-4.200 [facility] Comment on above: Order Comment: Order Date: 03/01/25Order Info: [id number] - CMPOrder Info: [id number] - LIPIDOrder Info: [id number] - TSHOrder Info: [id number] - IBCOrder Info: [id number] - KORINA Performed By: #### L 500.4050, L501.9520, L503.6030, L100.0100, L503.6550, L500.4100, L3300.4875 ####[facility] [address] [place], [address] Total proteinOrdered By: Yaquelin Lu on 03-01-2025 Protein [Mass/Vol] 6.9 g/dL 5.9-8.4 [facility] Triglycerides measurementOrd ered By: Thuy Lu on 03-01-2025 Triglyceride [Mass/Vol] 53 mg/dL <199 [facility] Comment on above: The drugs N-Acetylcy steine and Metamizole may falsely depress this assay. Normal range: <150 mg/dLBorderline High: 150-199 mg/dLHigh: 200-499 mg/dLVery High: >500 mg/dL Vitamin D, 25-hydroxyOrdered By: Thuy Lu on 03-01-2025 Vitamin D 25-Hydroxy 86.6 ng/mL 30-100 [facility] Comment on above: Vitamin D StatusDefi ciency: <20 ng/mL (50nmol/L)Insufficiency: 20-30 ng/mL (50-75 nmol/L)Sufficiency: 30-100 ng/mL (75-250 nmol/L)Toxicity: >100 ng/mL (>250 nmol/L) Vitamin D,25 Hydroxyon 03-01 Vitamin D 25-OH 86.6 ng/mL Normal 30-100 [facility] Comment on above: Order Comment: Order Date: 03/01/25Order Info: [id number] - CMPOrder Info: [id number] - LIPIDOrder Info: [id number] - TSHOrder Info: [id number] - IBCOrder Info: [id number] - KORINA Result Comment: Digna min D Status Deficiency: <20 ng/mL (50nmol/L) Insufficiency: 20-30 ng/mL (50-75 nmol/L) Sufficiency: 30-100 ng/mL (75-250 nmol/L) Toxicity: >100 ng/mL (>250 nmol/L) Performed By: #### L 506.1001 ####[facility] [address] [place], [address] White blood cell (WBC) count Ordered By: Thuy Lu on 03-01-2025 WBC (Bld) [#/Vol] 7.1 10*3/uL 4.4-11.0 [facility] Credit Administration Manager Office Visit Reporton 01-22-2025 Credit Administration Manager Office Visit Report [facility] [address], [address] [place] [address] OFFICE VISIT Date of Service: 01/22/25 MR#: [id number] Acct: [id number] Name: NATALIIA KRISHNAN Rep #: [id number] : 1975 Provider: Dr. 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 Blood Bank Required: No Is patient in pain?: No Allergies Sulfa (Sulfonamide Antibiotics) Allergy (Verified 01/22/25 09:16) Rash Medications ???Medication ???Instructions ???Recorded ???Confirmed ???Type cholecalciferol (vitamin D3) 25 1,000 unit PO DAILY 05/02/1401/22 History mcg (1,000 unit) capsule omega-3 fatty acids-fish oil 360 1,200 mg PO DAILY 08/18/14 5 History mg-1,200 mg capsule Lactobacillus acidophilus 100 mmu cells PO DAILY 01/14/24 History coenzyme Q10 75 mg capsule (Ultra 75 mg PO QDAY 01/22/25 01/22/25 H istory CoQ10) estradiol 0.0375 mg/24 hr 1 patch transdermal 2XW 90 days 01/22/25 Rx semiweekly transdermal patch #24 ea (Vivelle-Dot) multivitamin 1 tab PO QDAY 01/22/25 01/22/25 Hi story progesterone micronized 100 mg 300 mg (3 x 100 mg) PO QHS 90 days 01/22/25 01/22/25 Rx capsule #270 caps trazodone 100 mg tablet 100 mg PO QHS #30 tabs 01/22/25 Rx Post menopausal: No Patient : No : No PFSH Medical History History of rupture of Achilles tendon Social History (Updated 01/22/25 @ 09:23 by Ally Shin) Smoking Status: Never smoker alcohol intake: never substance use type: does not use caffeine: Yes what type of physical activity do you participate in: aerobics and weight training frequency: 5-6 times per week additional social history: : Gustavo History Elective abortions Hx Para 3 Spontaneous abortions Hx # Term Pregnancies Ectopic pregnancies Hx # Pregnancies Multiple births # of living children Past Pregnancies Del. Date Name GA/Weeks Outcome Route Bth Weight Gen Labor Lgth Anesthesia Del Locatn Provider FOB Unknown Jorge Unknown Aravind Unknown Eyad Unknown Emerson HPI Encounter for routine gynecological examination Details: NATALIIA KRISHNAN is a 49 year old who presents for annual exam. Last PAP: 10/20/21 History of abnormal PAP: no Last mammogram: n/a, declines mammograms and only wants us. History of abnormal mammogram: n/a Colon cancer screening: wants to order cologard Other preventative health care screenings: followed by pcp. Female Reproductive History Cycle Length: >35 Bleeding Duration: 12 Questions: metorrhagia: No, sexually active: Yes, dyspareunia: No and PCB: No Menopausal Symptoms: No hot flashes, No night sweats, No weight change, No mood changes, No difficulty concentrating, No sleep problems and No change in libido ROS Const Constitutional: Reports as per HPI; Denies fatigue, increased appetite, poor appetite, night sweats, weight gain or weight loss Cardio Card: Denies chest pain Resp Resp: Denies cough or dyspnea GI GI: Reports as per HPI; Denies abdominal pain, bloating, constipation, nausea or vomiting : Reports as per HPI and other; Denies difficulty voiding, dysuria, hematuria, hot flashes, nipple discharge, pelvic pain, prolapse symptoms, urinary frequency, urinary incontinence, urinary urgency, vaginal discharge, vaginal dryness, vaginal odor or vaginal pruritus Skin Skin/Breast: Denies changing lesions, breast mass, breast pain, breast skin changes or nipple discharge Psych Psych: Denies anxiety, change in libido, depression or difficulty concentrating Exam Const General: cooperative, healthy appearing, comfortable, no acute distress, well developed and well groomed [facility] Head: normal to inspection and normocephalic Ears: hearing grossly normal bilaterally and external ears normal Nose: external nose normal Face and sinus: normal facial exam Neck Neck: normal visual inspection, full ROM and no lymphadenopathy Thyroid: thyroid normal Chest Chest palpation inspection: normal inspection of the chest Breast inspection: normal inspection of the breasts and normal inspection of the axillae Breast palpation: normal palpation of the breasts, normal palpation of the axillae and no axillary lymphadenopathy Resp Effort Inspection: normal respiratory effort GI Inspection: normal to inspection and non-distended Palpation: soft, no hepatosplenomegaly and no guarding General: bladder normal to palpation Exte (more content not included)... Normal [facility] Basophil percentageOrdered B y: Jason Pruett on 03-21-2024 Bilirubin [Mass/Vol] 0.60 mg/dL 0.20-1.00 [facility] Comment on above: For patients on eltr ombopag therapy, use of Dimension [place] TBIL is not recommended. Chloride [Moles/Vol] 108 mmol/L 98-107 [facility] Glucose [Mass/Vol] 85 mg/dL 74-106 [facility] Potassium [Moles/Vol] 3.8 mmol/L 3.5-5.1 [facility] Protein [Mass/Vol] 6.9 g/dL 6.4-8.2 [facility] Sodium [Moles/Vol] 140 mmol/L 136-145 [facility] Laboratory - Chemistry and C hemistry - challengeOrdered By: Jason Pruett on 03-21-2024 Albumin/Globulin [Mass ratio] 1.4 {ratio} 0.9-2.4 [facility] ALP [Catalytic activity/Vol] 36 U/L 45-117 [facility] ALT [Catalytic activity/Vol] 28 U/L 13-56 [facility] CO2 [Moles/Vol] 28.0 mmol/L 21.0-32.0 [facility] Globulin (S) [Mass/Vol] 2.9 g/dL 2.2-4.2 [facility] Urea nitrogen/Creatinine [Mass ratio] 18.1 mg/mg 10-20 [facility] No Panel InformationOrdered By: Jason Pruett on 03-21-2024 Estimated GFR (MDRD) Amer 76 mL/min >60 [facility] Comment on above: GFR Calc Estimated GFR (MDRD) Non-Af Amer 63 mL/min >60 [facility] Comment on above: Non- GFR Calc Follicle Stimulating Hormone 36.6 mIU/mL [facility] Comment on above: NORMAL REFERENCE RAN GES FEMALE FOLLICULAR 2.3 - 12.6 mIU/mL MID-CYCLE PEAK 5.2 - 17.5 mIU/mL LUTEAL 1.7 - 12.9 mIU/mL POST-MENOPAUSAL ON MHT 5.9 - 72.8 mIU/mL NOT ON MHT 12.7 - 132.2 mlU/mL MALE 0.7 - 10.8 mIU/mL Luteinizing Hormone 12.9 mIU/mL [facility] Comment on above: NORMAL REFERENCE RAN GES FEMALE FOLLICULAR 1.9 - 26.2 mIU/mL MID-CYCLE PEAK 22.8 - 76.1 mIU/mL LUTEAL 0.6 - 16.6 mIU/mL POST-MENOPAUSAL ON MHT 1.1 - 52.4 mIU/mL NOT ON MHT 8.6 - 61.8 mIU/mL MALE 1.2 - 10.6 mIU/mL Vitamin D 25-Hydroxy 84.2 ng/mL [facility] Comment on above: Vitamin D 25(OH) Sta tus Range Deficiency <20 ng/mL (50nmol/L) Insufficiency 20 - 30 ng/mL (50 - 75 nmol/L) Sufficiency 30 - 100 ng/mL (75 - 250 nmol/L) Toxicity >100 ng/mL (>250 nmol/L) Serum or plasma calcium rom urement (mass/volume)Ordered By: Jason Pruett on 03-21-2024 Calcium [Mass/Vol] 9.0 mg/dL 8.5-10.1 [facility] Serum or plasma creatinine m easurement (mass/volume)Ordered By: Jason Pruett on 03-21-2024 Creatinine [Mass/Vol] 1.00 mg/dL 0.55-1.02 [facility] Comment on above: The validity of the calculated GFR & GFRAA in patients over 70 years has not been determined. Clinical correlation is essential. Serum or plasma thyroid stim ulating hormone (TSH) measurement (units/volume)Ordered By: Jason Pruett on 03-21-2024 TSH Qn 2.12 uIU/mL 0.358-3.74 [facility] Serum or plasma urea nitroge n measurement (mass/volume)Ordered By: Jason Pruett on 03-21-2024 Urea nitrogen [Mass/Vol] 18 mg/dL 7-18 [facility] Thin prep Papanicolaou smear with manual screeningOrdered By: Jason Pruett on 03-21-2024 Thin prep Papanicolaou smear with manual screening 4.0 g/dL 3.2-5.0 [facility] Thin prep Papanicolaou smear with manual screening 24 U/L 15-37 [facility] Thin prep Papanicolaou smear with manual screening 4 5-15 [facility] Absolute lymphocyte countOrd ered By: Yadira Reeves on 07-22-2023 Lymphocytes Auto (Unsp spec) [#/Vol] 1.48 10*3/uL 0.83-4.51 [facility] Basophil percentageOrdered B y: Yadira Reeves on 07-22-2023 Basophils/100 WBC (Bld) 0.3 % 0-1 [facility] Bilirubin [Mass/Vol] 0.40 mg/dL 0.20-1.00 [facility] Comment on above: For patients on eltr ombopag therapy, use of [place] TBIL is not recommended. Chloride [Moles/Vol] 106 mmol/L 98-107 [facility] Eosinophils/100 WBC (Bld) 1.0 % 0-5 [facility] Glucose [Mass/Vol] 77 mg/dL 74-106 [facility] Neutrophils (Bld) [#/Vol] 4.5 10*3/uL 2.0-7.7 [facility] Neutrophils/100 WBC (Bld) 67.4 % 47-70 [facility] Potassium [Moles/Vol] 3.5 mmol/L 3.5-5.1 [facility] Protein [Mass/Vol] 6.7 g/dL 6.4-8.2 [facility] Sodium [Moles/Vol] 138 mmol/L 136-145 [facility] WBC (Bld) [#/Vol] 6.7 10*3/uL 4.4-11.0 [facility] Blood erythrocytes count (nu mber/volume)Ordered By: Yadira Reeves on 07-22-2023 RBC (Bld) [#/Vol] 4.18 10*6/uL 4.2-5.4 [facility] Blood hemoglobin measurement (mass/volume)Ordered By: Yadira Reeves on 07-22-2023 Hemoglobin (Bld) [Mass/Vol] 13.0 g/dL 12.0-15.0 [facility] Blood lymphocytes/100 leukoc ytesOrdered By: Yadira Reeves on 07-22-2023 Lymphocytes/100 WBC (Bld) 22.0 % 19-41 [facility] Blood monocytes/100 leukocyt esOrdered By: Yadira Reeves on 07-22-2023 Monocytes/100 WBC (Bld) 8.9 % 0-10 [facility] Blood platelet mean volumeOr dered By: Yadira Reeves on 07-22-2023 Platelet mean volume (Bld) [Entitic vol] 10.9 fL 6.2-12.0 [facility] Determination of erythrocyte mean corpuscular volume (MCV)Ordered By: Yadira Reeves on 07-22-2023 MCV (RBC) [Entitic vol] 95.7 fL 81-99 [facility] Hematocrit Auto (Bld) [Volum e fraction]Ordered By: Yadira Reeves on 07-22-2023 Hematocrit (Bld) [Volume fraction] 40.0 % 37-47 [facility] Laboratory - Chemistry and C hemistry - challengeOrdered By: Yadira Reeves on 07-22-2023 ALP [Catalytic activity/Vol] 48 U/L 45-117 [facility] ALT [Catalytic activity/Vol] 42 U/L 13-56 [facility] CO2 [Moles/Vol] 25.0 mmol/L 21.0-32.0 [facility] Free T4 [Mass/Vol] 0.89 ng/dL 0.76-1.46 [facility] Globulin (S) [Mass/Vol] 3.0 g/dL 2.2-4.2 [facility] Urea nitrogen/Creatinine [Mass ratio] 17.4 mg/mg 10-20 [facility] Laboratory - Hematology and Cell countsOrdered By: Yadira Reeves on 07-22-2023 Erythrocyte distribution width (RBC) [Entitic vol] 43.0 fL 35.1-43.9 [facility] Erythrocyte distribution width (RBC) [Ratio] 12.4 % 11.6-14.6 [facility] Immature granulocytes/100 WBC (Bld) 0.400 % 0.0-0.9 [facility] Comment on above: IG% - Immature Granu locytes (promyelocytes, myelocytes and metamyelocytes) > 1% indicates that a LEFT SHIFT is Present. MCH (RBC) [Entitic mass] 31.1 pg 27.0-32.0 [facility] Nucleated RBC/100 WBC (Bld) [Ratio] 0 % 0-5 [facility] MCHC Auto (RBC) [Mass/Vol]Or dered By: Yadira Reeves on 07-22-2023 MCHC (RBC) [Mass/Vol] 32.5 g/dL 32-36 [facility] No Panel InformationOrdered By: Yadira Reeves on 07-22-2023 Estimated GFR (MDRD) Amer 90 mL/min >60 [facility] Comment on above: GFR Calc Estimated GFR (MDRD) Non-Af Amer 75 mL/min >60 [facility] Comment on above: Non- GFR Calc Free Triiodothyronine (T3) pg/dL 2.5 pg/mL 2.18-3.98 [facility] Thyroid Stimulating Hormone (TSH) 1.83 uIU/mL 0.358-3.74 [facility] Vitamin D 25-Hydroxy 88.8 ng/mL [facility] Comment on above: Vitamin D 25(OH) Sta tus Range Deficiency <20 ng/mL (50nmol/L) Insufficiency 20 - 30 ng/mL (50 - 75 nmol/L) Sufficiency 30 - 100 ng/mL (75 - 250 nmol/L) Toxicity >100 ng/mL (>250 nmol/L) Platelets bldOrdered By: Yadira Reeves on 08-31-2023 Platelets (Bld) [#/Vol] 186 10*3/uL 150-450 [facility] Serum or plasma albumin rom urement (mass/volume)Ordered By: Yadira Reeves on 07-22-2023 Albumin [Mass/Vol] 3.7 g/dL 3.2-5.0 [facility] Serum or plasma albumin/glob ulin mass ratioOrdered By: Yadira Reeves on 07-22-2023 Albumin/Globulin [Mass ratio] 1.2 {ratio} 0.9-2.4 [facility] Serum or plasma calcium rom urement (mass/volume)Ordered By: Yadira Reeves on 07-22-2023 Calcium [Mass/Vol] 8.9 mg/dL 8.5-10.1 [facility] Serum or plasma creatinine m easurement (mass/volume)Ordered By: Yadira Reeves on 07-22-2023 Creatinine [Mass/Vol] 0.86 mg/dL 0.55-1.02 [facility] Comment on above: The validity of the calculated GFR & GFRAA in patients over 70 years has not been determined. Clinical correlation is essential. Serum or plasma urea nitroge n measurement (mass/volume)Ordered By: Yadira Reeves on 07-22-2023 Urea nitrogen [Mass/Vol] 15 mg/dL 7-18 [facility] Thin prep Papanicolaou smear with manual screeningOrdered By: Ydaira Reeves on 07-22-2023 Thin prep Papanicolaou smear with manual screening 25 U/L 15-37 [facility] Thin prep Papanicolaou smear with manual screening 7 5-15 [facility] Basophil percentageOrdered B y: Dr. Pruett on 03-22-2023 Bilirubin [Mass/Vol] 0.40 mg/dL 0.20-1.00 [facility] Comment on above: For patients on eltr ombopag therapy, use of Dimension [place] TBIL is not recommended. Chloride [Moles/Vol] 106 mmol/L 98-107 [facility] Glucose [Mass/Vol] 90 mg/dL 74-106 [facility] Potassium [Moles/Vol] 3.7 mmol/L 3.5-5.1 [facility] Protein [Mass/Vol] 7.0 g/dL 6.4-8.2 [facility] Sodium [Moles/Vol] 141 mmol/L 136-145 [facility] Laboratory - Chemistry and C hemistry - challengeOrdered By: Dr. Pruett on 03-22-2023 ALP [Catalytic activity/Vol] 43 U/L 45-117 [facility] ALT [Catalytic activity/Vol] 42 U/L 13-56 [facility] CO2 [Moles/Vol] 25.0 mmol/L 21.0-32.0 [facility] Globulin (S) [Mass/Vol] 3.0 g/dL 2.2-4.2 [facility] Urea nitrogen/Creatinine [Mass ratio] 10.5 mg/mg 10-20 [facility] No Panel InformationOrdered By: Dr. Pruett on 03-22-2023 Estimated GFR (MDRD) Amer 72 mL/min >60 [facility] Comment on above: GFR Calc Estimated GFR (MDRD) Non-Af Amer 60 mL/min >60 [facility] Comment on above: Non- GFR Calc Follicle Stimulating Hormone 16.2 mIU/mL [facility] Comment on above: NORMAL REFERENCE RAN GES FEMALE FOLLICULAR 2.3 - 12.6 mIU/mL MID-CYCLE PEAK 5.2 - 17.5 mIU/mL LUTEAL 1.7 - 12.9 mIU/mL POST-MENOPAUSAL ON MHT 5.9 - 72.8 mIU/mL NOT ON MHT 12.7 - 132.2 mlU/mL MALE 0.7 - 10.8 mIU/mL Thyroid Stimulating Hormone (TSH) 2.40 uIU/mL 0.358-3.74 [facility] Vitamin D 25-Hydroxy 85.3 ng/mL [facility] Comment on above: Vitamin D 25(OH) Sta tus Range Deficiency <20 ng/mL (50nmol/L) Insufficiency 20 - 30 ng/mL (50 - 75 nmol/L) Sufficiency 30 - 100 ng/mL (75 - 250 nmol/L) Toxicity >100 ng/mL (>250 nmol/L) Serum or plasma albumin rom urement (mass/volume)Ordered By: Dr. Pruett on 03-22-2023 Albumin [Mass/Vol] 4.0 g/dL 3.2-5.0 [facility] Serum or plasma albumin/glob ulin mass ratioOrdered By: Dr. Pruett on 03-22-2023 Albumin/Globulin [Mass ratio] 1.3 {ratio} 0.9-2.4 [facility] Serum or plasma calcium rom urement (mass/volume)Ordered By: Dr. Pruett on 03-22-2023 Calcium [Mass/Vol] 9.2 mg/dL 8.5-10.1 [facility] Serum or plasma creatinine m easurement (mass/volume)Ordered By: Dr. Pruett on 03-22-2023 Creatinine [Mass/Vol] 1.05 mg/dL 0.55-1.02 [facility] Comment on above: The validity of the calculated GFR & GFRAA in patients over 70 years has not been determined. Clinical correlation is essential. Serum or plasma estradiol (E 2) measurement (mass/volume)Ordered By: Dr. Pruett on 03-22-2023 E2 [Mass/Vol] 27.5 pg/mL [facility] Comment on above: NORMAL REFERENCE RAN GES FEMALE FOLLICULAR 21.4 - 164.8 pg/mL MID-CYCLE PEAK 49.9 - 367.2 pg/mL LUTEAL 40.2 - 259.0 pg/mL POST-MENOPAUSAL ON MHT <11.0 - 462.1 pg/mL NOT ON MHT <11.0 - 58.3 pg/mL MALE <11.0 - 52.5 pg/mL NOTE:[employer] HAS CONFIRMED THE DRUG FULVETRANT (FASLODEX) MAY CAUSE FALSELY ELEVATED ESTRADIOL RESULTS WHEN USING THIS TEST METHOD. IF PATIENT IS TAKING FULVESTRANT AN ALTERNATIVE METHOD SHOULD BE USED TO DETERMINE ESTRADIOL CONCENTRATION. Serum or plasma progesterone measurement (mass/volume)Ordered By: Dr. Pruett on 03-22-2023 Progesterone [Mass/Vol] 50.34 ng/mL See Comment [facility] Comment on above: Progesterone Referen ce Table: UNITS Female: Follicular 0.15 - 1.40 ng/mL Luteal 3.34 - 25.56 ng/mL Mid-luteal 4.44 - 28.03 ng/mL Postmenopausal 0.0 - 0.73 ng/mL : 1st Trimester 11.22 - 90.00 ng/mL 2nd Trimester 25.55 - 89.40 ng/mL 3rd Trimester 48.40 -422.50 ng/mL Serum or plasma urea nitroge n measurement (mass/volume)Ordered By: Dr. Pruett on 03-22-2023 Urea nitrogen [Mass/Vol] 11 mg/dL 7-18 [facility] Thin prep Papanicolaou smear with manual screeningOrdered By: Dr. Pruett on 03-22-2023 Thin prep Papanicolaou smear with manual screening 32 U/L 15-37 [facility] Thin prep Papanicolaou smear with manual screening 10 5-15 [facility] CNOVSPon 10-26-2019 CNOVSP Visit (SP) Office (H EMAWS) NATALIIA KRISHNAN ([id number]) 1975 F Date Time Provider Department 10/26/19 10:10 AM ROSEMARY SEPULVEDA During your visit today, we recorded the following information about you: Temperature Pulse Blood pressure Weight 98.2 degrees 82/minute 111/75 81.9 kg Height 1.854 m Radha Flannery LPN 10/26/2019 10:44 AM Signed New patient. DX DVT. Radha Sepulveda MD 10/27/2019 7:59 AM Signed Hematology and Medical Oncology PATIENT NAME: Nataliia KRISHNAN. CLINIC NO: [id number]. ATTENDING PHYSICIAN: Rosemary Sepulveda MD. DATE OF SERVICE:10/26/2019. DIAGNOSIS: Acute DVT of the left subclavian vein. Consultation requested by Dr. baig for an opinion regarding acute DVT of the left arm. My final recommendations will be communicated back to the requesting physician by way of shared Medical record or letter to requesting physician via US mail. PERFORMANCE STATUS:100% HPI: 44-year-old female otherwise healthy presented to the emergency room with several days history of swelling and pain in the left arm. Patient has been on progesterone therapy for mood swing. She also been doing aerobic exercise especially with the upper extremity in the last month. She has no chest pain, cough or shortness of breath. She has no neck swelling or headaches. She has no family history of bleeding or clotting disorder. No family history of cancer. She does not smoke or drink alcohol. She has 4 children, and 1 miscarriage. Her menstrual period is normal. She had a pelvic exam [address] Naomi Grubbs, but she had not have a screening mammogram. MEDICATIONS: Current Outpatient Medications Medication Sig - XARELTO 15 mg tablet Take 15 mg by mouth twice daily. For 3 weeks No current facility-administered medications for this visit. . ALLERGIES: ALLERGIES Allergen Reactions - Sulfa (Sulfonamide * Rash . PAST MEDICAL HISTORY:No past medical history on file.. PAST SURGICAL HISTORY: PAST SURGICAL HISTORY Procedure Laterality Date - SECTION HX X 3 . FAMILY HISTORY: FAMILY HISTORY Problem Relation Age of Onset - No Known Problems Mother - Hypertension Father - No Known Problems Brother - Heart disease Paternal Grandfather - No Known Problems Son - No Known Problems Son - No Known Problems Son . SOCIAL HISTORY: Social History Tobacco Use - Smoking status: Never Smoker - Smokeless tobacco: Never Used Substance Use Topics - Alcohol use: Yes Comment: occasionally - Drug use: Never . REVIEW OF SYSTEMS: CONSTITUTIONAL: No fevers, chills, nightsweats, unintended weight loss HEENT: Denies frequent or severe heaches, nasal congestion/sinus symptoms, problematic allergy problems. EYES: No diplopia or blurry vision. CARDIOVASCULAR: No chest pain, dyspnea, palpitations, orthopnea, PND, ankle edema. PULM: No dyspnea, unexplained cough. GI: No dysphagia/odynophagia, problematic reflux, constipation, diarrhea, changes in stool habits, hematochezia, melena. : No new urinary complaints, including dysuria, gross hematuria or pyuria. NEURO: No new balance problems, peripheral weakness/paresthesias or numbness of concern. MUSC-SKEL: No new joint pain, swelling, or erythema. PSY: No concerns regarding depression, anxiety or panic. INTEGUMENTARY: No new skin changes (rash, new or changing mole, new growth) PHYSICAL EXAMINATION: 44-year-old well-nourished well-developed female in no acute distress BP 111/75 Pulse 82 Temp (Src) 98.2 (Oral) Ht 6' 1[verified by Ghazal Martinez RN[ (1.85m) Wt 180 lb 8 oz (81.9kg) BMI 23.82 kg/(m2). HEENT: Head is normocephalic, atraumatic. Sclerae white, conjunctivae pink. PEERL. EOMs are intact. Oropharynx is benign. LYMPHATICS: There is no palpable adenopathy in the neck, supraclavicular region, axillae, or groin. LUNGS: Lungs are clear to percussion and auscultation. HEART: Heart is normal without murmurs, gallops, or rubs. ABDOMEN: Soft and nontender without organomegaly. No masses can be palpated. EXTREMITIES: Are slight swelling of the left arm, peripheral pulses are intact with normal capillary refills. NEUROLOGIC: Exam is physiologic LABORATORY DATA: Component Latest Ref Rng AND Units 10/26/2019 WBC, [place] 3.70 - 11.00 k/uL 3.93 RBC, [place] 3.90 - 5.20 m/uL 4.57 Hemoglobin, [place] 11.5 - 15.5 g/dL 14.1 Hematocrit, [place] 36.0 - 46.0 % 42.1 MCV, [place] 80.0 - 100.0 fL 92.1 MCH, [place] 26.0 - 34.0 pg 30.9 MCHC, [place] 30.5 - 36.0 g/dL 33.5 RDW, [place] 11.5 - 15.0 % 13.6 Platelet Cnt, [place] 150 - 400 k/uL 185 MPV, [place] 9.0 - 12.7 fL 10.2 Absol Gran Count 1.45 - 7.50 k/uL 2.18 IMAGING: CXR: No active disease. Venous Doppler left arm acute deep venous thrombosis noted in the left subclavian vein. The remaining of the left upper extremity deep venous system appeared to be patent and compressible. Superficial veins of the left arm are patent and compressible. ASSESSMENT: 44-year-old otherwise healthy female presented with acute DVT of the left subclavian vein (provoked by her exercise routine and progesterone) PLAN: - Continue Xarelto x 3 months for treatment of acute DVT of the left arm. - I recommend that she stopped progesterone in follow-up with [facility] for management of her mucinous point. - She will also need a pelvic exam and screening mammography. - Possible repeat d-dimer 1 months after she stops Xarelto. Base on the PREVENT trial, woman with a normal d-dimer has very low risk for recurrent DVT after stopping anticoagulation therapy, especially since her DVT is likely to be provoked by progesterone. I spent 45 minutes in the visit, with more than 50% of the total [id number]-[id number] time of the visit in counseling / coordination of care. Side effects, risks and indication for Xarelto were discussed with the patient which include bleeding. Avoid aspirin and NSAIDs . The patient was allowed enough time to ask questions. All questions were answered to her satisfaction. Patient understanding of treatment plan and agreed to follow up with PCP. Rosemary Sepulveda MD. ELECTRONICALLY SIGNED Cc; Dr. Yadira Veliz Referring Provider: OLEKSANDR BAIG [[id number]] Allergies As of Date: 10/26/2019 Noted Allergy Reaction SULFA (SULFONAMIDE ANTIBIOTICS) 01/31/2007 2 - Rash Date Reviewed: 10/26/2019 Reviewed by: Radha Flannery LPN - Fully Assessed Reason for Visit: New Patient [172] Primary Visit Diagnosis:DVT of axillary vein, acute left (HCC) [I82.A12] Level of Service: NEW PATIENT VISIT LEVEL 4 [39227] Disposition: Return if symptoms worsen or fail to improve. Follow-up and Disposition History Recorded Prescriptions as of 10/26/2019 Sig: XARELTO 15 MG TABLET Take 15 mg by mouth twice peyton* Medication notes this encounter PHENAZOPYRIDINE 200 MG TABLET >> Radha Flannery LPN 10/26/2019 10:18 AM >> RADHA FLANNERY LPN Amanda Oct 26, 2019 10:18 AM discontinued Problem List As Of Date: 10/26/2019 (None) Visit Notes: >> Radha Flannery LPN [facility] Oct 26, 2019 10:19 AM Status: Signed New patient. DX DVT. Radha Flannery LPN Encounter Status:Closed by ROSEMARY SEPULVEDA MD on 10/27/19 [facility] HISTORY PHYSICALon HISTORY PHYSICAL HNO ID: [id number] Author: Rosemary Sepulveda Service: ? Author Type: Physician Type: HANDP Filed: 10/27/2019 7:59 AM Note Text: Hematology and Medical Oncology PATIENT NAME: Nataliia KRISHNAN. CLINIC NO: [id number]. ATTENDING PHYSICIAN: Rosemary Sepulveda MD. DATE OF SERVICE:10/26/2019. DIAGNOSIS: Acute DVT of the left subclavian vein. Consultation requested by Dr. baig for an opinion regarding acute DVT of the left arm. My final recommendations will be communicated back to the requesting physician by way of shared Medical record or letter to requesting physician via US mail. PERFORMANCE STATUS:100% HPI: 44-year-old female otherwise healthy presented to the emergency room with several days history of swelling and pain in the left arm. Patient has been on progesterone therapy for mood swing. She also been doing aerobic exercise especially with the upper extremity in the last month. She has no chest pain, cough or shortness of breath. She has no neck swelling or headaches. She has no family history of bleeding or clotting disorder. No family history of cancer. She does not smoke or drink alcohol. She has 4 children, and 1 miscarriage. Her menstrual period is normal. She had a pelvic exam [address] Naomi Grubbs, but she had not have a screening mammogram. MEDICATIONS: Current Outpatient Medications Medication Sig - XARELTO 15 mg tablet Take 15 mg by mouth twice daily. For 3 weeks No current facility-administered medications for this visit. . ALLERGIES: ALLERGIES Allergen Reactions - Sulfa (Sulfonamide * Rash . PAST MEDICAL HISTORY:No past medical history on file.. PAST SURGICAL HISTORY: PAST SURGICAL HISTORY Procedure Laterality Date - SECTION HX X 3 . FAMILY HISTORY: FAMILY HISTORY Problem Relation Age of Onset - No Known Problems Mother - Hypertension Father - No Known Problems Brother - Heart disease Paternal Grandfather - No Known Problems Son - No Known Problems Son - No Known Problems Son . SOCIAL HISTORY: Social History Tobacco Use - Smoking status: Never Smoker - Smokeless tobacco: Never Used Substance Use Topics - Alcohol use: Yes Comment: occasionally - Drug use: Never . REVIEW OF SYSTEMS: CONSTITUTIONAL: No fevers, chills, nightsweats, unintended weight loss HEENT: Denies frequent or severe heaches, nasal congestion/sinus symptoms, problematic allergy problems. EYES: No diplopia or blurry vision. CARDIOVASCULAR: No chest pain, dyspnea, palpitations, orthopnea, PND, ankle edema. PULM: No dyspnea, unexplained cough. GI: No dysphagia/odynophagia, problematic reflux, constipation, diarrhea, changes in stool habits, hematochezia, melena. : No new urinary complaints, including dysuria, gross hematuria or pyuria. NEURO: No new balance problems, peripheral weakness/paresthesias or numbness of concern. MUSC-SKEL: No new joint pain, swelling, or erythema. PSY: No concerns regarding depression, anxiety or panic. INTEGUMENTARY: No new skin changes (rash, new or changing mole, new growth) PHYSICAL EXAMINATION: 44-year-old well-nourished well-developed female in no acute distress BP 111/75 Pulse 82 Temp (Src) 98.2 (Oral) Ht 6' 1[verified by Ghazal Martinez RN[ (1.85m) Wt 180 lb 8 oz (81.9kg) BMI 23.82 kg/(m2). HEENT: Head is normocephalic, atraumatic. Sclerae white, conjunctivae pink. PEERL. EOMs are intact. Oropharynx is benign. LYMPHATICS: There is no palpable adenopathy in the neck, supraclavicular region, axillae, or groin. LUNGS: Lungs are clear to percussion and auscultation. HEART: Heart is normal without murmurs, gallops, or rubs. ABDOMEN: Soft and nontender without organomegaly. No masses can be palpated. EXTREMITIES: Are slight swelling of the left arm, peripheral pulses are intact with normal capillary refills. NEUROLOGIC: Exam is physiologic LABORATORY DATA: Component Latest Ref Rng AND Units 10/26/2019 WBC, [place] 3.70 - 11.00 k/uL 3.93 RBC, [place] 3.90 - 5.20 m/uL 4.57 Hemoglobin, [place] 11.5 - 15.5 g/dL 14.1 Hematocrit, [place] 36.0 - 46.0 % 42.1 MCV, [place] 80.0 - 100.0 fL 92.1 MCH, [place] 26.0 - 34.0 pg 30.9 MCHC, [place] 30.5 - 36.0 g/dL 33.5 RDW, [place] 11.5 - 15.0 % 13.6 Platelet Cnt, [place] 150 - 400 k/uL 185 MPV, [place] 9.0 - 12.7 fL 10.2 Absol Gran Count 1.45 - 7.50 k/uL 2.18 IMAGING: CXR: No active disease. Venous Doppler left arm acute deep venous thrombosis noted in the left subclavian vein. The remaining of the left upper extremity deep venous system appeared to be patent and compressible. Superficial veins of the left arm are patent and compressible. ASSESSMENT: 44-year-old otherwise healthy female presented with acute DVT of the left subclavian vein (provoked by her exercise routine and progesterone) PLAN: - Continue Xarelto x 3 months for treatment of acute DVT of the left arm. - I recommend that she stopped progesterone in follow-up with [facility] for management of her mucinous point. - She will also need a pelvic exam and screening mammography. - Possible repeat d-dimer 1 months after she stops Xarelto. Base on the PREVENT trial, woman with a normal d-dimer has very low risk for recurrent DVT after stopping anticoagulation therapy, especially since her DVT is likely to be provoked by progesterone. I spent 45 minutes in the visit, with more than 50% of the total [id number]-rt-yigg time of the visit in counseling / coordination of care. Side effects, risks and indication for Xarelto were discussed with the patient which include bleeding. Avoid aspirin and NSAIDs . The patient was allowed enough time to ask questions. All questions were answered to her satisfaction. Patient understanding of treatment plan and agreed to follow up with PCP. Rosemary Sepulveda MD. ELECTRONICALLY SIGNED Cc; Dr. Yadira Veliz Normal [facility] [place] Abs Gr + CBCon 10-26 Absol Gran Count 2.18 k/uL Normal 1.45-7.50 [facility] Erythrocyte distribution width (RBC) [Ratio] 13.6 % Normal 11.5-15.0 [facility] Hematocrit (Bld) [Volume fraction] 42.1 % Normal 36.0-46.0 [facility] Hemoglobin (Bld) [Mass/Vol] 14.1 g/dL Normal 11.5-15.5 [facility] MCH (RBC) [Entitic mass] 30.9 pg Normal 26.0-34.0 [facility] MCHC (RBC) [Mass/Vol] 33.5 g/dL Normal 30.5-36.0 [facility] MCV (RBC) [Entitic vol] 92.1 fL Normal 80.0-100.0 [facility] Platelet mean volume (Bld) [Entitic vol] 10.2 fL Normal 9.0-12.7 [facility] Comment on above: Result Comment: Test performed by: [facility], [address] [place] [address]. RBC (Bld) [#/Vol] 4.57 10*6/uL Normal 3.90-5.20 [facility] WBC (Bld) [#/Vol] 3.93 10*3/uL Normal 3.70-11.00 [facility] Platelet Cnt 185 k/uL Normal 150-400 [facility] Vital Signs Date Time Vital Sign Value Performing Clinician Faci lity 08-20-2025 13:59-0400 Body height 187.96 cm Thuy Lu MD Work Phone: [facility] 08-20-2025 13:59-0400 Body mass index (BMI) [Ratio] 21.9 kg/m2 Thuy Lu MD Work Phone: [facility] 08-20-2025 13:59-0400 Body weight 77.3 kg Thuy Lu MD Work Phone: [facility] 08-20-2025 13:59-0400 Diastolic blood pressure 80 mm[Hg] Thuy Lu MD Work Phone: [facility] 08-20-2025 13:59-0400 Systolic blood pressure 137 mm[Hg] Thuy Lu MD Work Phone: [facility] 01-22-2025 09:19-0500 Body height 187.[address] Yadira Reeves MD Work Phone: [facility] 01-22-2025 09:17-0500 Body mass index (BMI) [Ratio] 22.7 kg/m2 Dr. Yadira Reeves MD Work Phone: [facility] 01-22-2025 09:17-0500 Body weight 80.[address] Yadira Reeves MD Work Phone: [facility] 01-22-2025 09:17-0500 Diastolic blood pressure 83 mm[Hg] Dr. Yadira Reeves MD Work Phone: 2([phone])621-666973 [place] [address] 01-22-2025 09:17-0500 Systolic blood pressure 134 mm[Hg] Dr. Yadira Reeves MD Work Phone: 9(730)974-812573 [place] [address] 01-14-2024 14:37-0500 Body height 187.[address] Yadira Reeves Work Phone: 1(512)544-489073 [place] [address] 01-14-2024 14:33-0500 Body mass index (BMI) [Ratio] 24 kg/m2 Dr. Yadira Reeves Work Phone: 0(445)448-779473 [place] [address] 01-14-2024 14:33-0500 Body weight 84.[address] Yadira Reeves Work Phone: 5(752)[phone] [place] [address] 01-14-2024 14:33-0500 Diastolic blood pressure 58 mm[Hg] Dr. Yadira Reeves Work Phone: 8([phone])482-670673 [place] [address] 01-14-2024 14:33-0500 Systolic blood pressure 108 mm[Hg] Dr. Yadira Reeves Work Phone: 2([phone])821-394473 [place] [address] 12-30-2023 09:10-0500 Body mass index (BMI) [Ratio] 23.7 kg/m2 Dr. Yadira Reeves Work Phone: 4(398)710-033473 [place] [address] 12-30-2023 09:10-0500 Body temperature 99.4 [degF] Dr. Yadira Reeves Work Phone: [phone](590)931-041673 [place] [address] 12-30-2023 09:10-0500 Body weight 83.[address] Yadira Reeves Work Phone: [facility] 12-30-2023 09:10-0500 Diastolic blood pressure 70 mm[Hg] Dr. Yadira Reeves Work Phone: 6(660)157-581673 [place] [address] 12-30-2023 09:10-0500 Heart rate 96 /min Dr. Yadira Reeves Work Phone: [phone] [place] [address] 12-30-2023 09:10-0500 Respiratory rate 12 /min Dr. Yadira Reeves Work Phone: 0([phone] [place] [address] 12-30-2023 09:10-0500 SaO2% (BldA) [Mass fraction] 98 % Dr. Yadira Reeves Work Phone: [facility] 12-30-2023 09:10-0500 Systolic blood pressure 124 mm[Hg] Dr. Yadira Reeves Work Phone: [facility] Encounters Encounter Date Encounter Type Care Provider Facility Start: 08-24-2025 End: 08-24-2025 ambulatory Chalon Aly Facility:[facility] Start: 08-20-2025 End: 08-20-[address] Tamia Amaya DO -[facility] Work Phone: Start: 08-20-2025 End: 08-20-2025 ambulatory Thuy Lu MD Work Phone: [facility] Start: 08-20-2025 End: 08-20-2025 ambulatory Chalon Aly Facility:[facility] Start: 08-09-2025 End: 08-09-[address] Major Hodgson MD -[facility] Work Phone: Start: 08-09-2025 End: 08-09-2025 ambulatory Thuy Lu MD Work Phone: [facility] Start: 07-24-2025 End: 07-24-[address] Candelario Mc MD -[facility] Start: 07-24-2025 End: 07-24-2025 ambulatory Thuy uL MD Work Phone: [facility] Start: 03-26-2025 End: 03-26-[address] Major Hodgson MD -[facility] Work Phone: Start: 03-26-2025 End: 03-26-2025 ambulatory Chalon Aly Facility:[facility] Start: 03-21-2025 End: 03-21-2025 ambulatory Cocoon Aly Facility:[facility] Start: 03-01-2025 End: 03-01-[address] Yadira Reeves MD Work Phone: [facility] Work Phone: Start: 03-01-2025 End: 03-01-[address] Thuy Lu MD -Laboratory, [place] Work Phone: Start: 03-01-2025 End: 03-01-2025 ambulatory Thuy Lu Facility:[facility] Start: 01-22-2025 Encounter for gynecological examination (general) (routine) without abnormal findings Tamia Francois [facility] Start: 01-22-2025 End: 01-22-[address] Tamia Amaya DO -[facility] Work Phone: Start: 01-22-2025 End: 01-22-[address] Tamia Amaya DO [facility] Start: 01-22-2025 End: 01-22-2025 ambulatory Yadira Reeves Facility:[facility] Start: 03-23-[address] Yadira leos Work Phone: [facility] Work Phone: Start: 03-21-2024 End: 03-21-[address] Yadira Reeves Work Phone: [facility] Work Phone: Start: 03-21-2024 End: 03-21-[address] Yadira Reeves Work Phone: [facility] Work Phone: Start: 02-25-2024 End: 02-25-[address] Yadira Reeves Work Phone: [facility] Work Phone: Start: 02-21-2024 End: 02-21-[address] Yadira Reeves Work Phone: [facility] Work Phone: Start: 02-21-2024 End: 02-21-[address] Yadira Reeves Work Phone: [facility] Work Phone: Start: 01-14-2024 End: 01-14-[address] Yadira Reeves Work Phone: [facility] Work Phone: Start: 12-30-2023 End: 12-30-[address] Yadira Reeves Work Phone: [facility] Work Phone: Start: 12-20-2023 End: 12-20-[address] Yadira Reeves Work Phone: [facility] Work Phone: Start: 07-22-2023 End: 07-22-[address] Yadira Reeves Work Phone: [facility] Work Phone: Start: 07-22-2023 End: 07-22-[address] Yadira Reeves Work Phone: [facility] Work Phone: Start: 04-16-2023 End: 04-16-[address] Yadira Reeves Work Phone: [facility] Work Phone: Start: 04-16-2023 End: 04-16-[address] Yadira Reeves Work Phone: [facility] Work Phone: Start: 04-01-2023 End: 04-01-[address] Yadira Reeves Work Phone: [facility] Work Phone: Start: 03-22-2023 End: 03-22-[address] Yadira Reeves Work Phone: [facility] Work Phone: Start: 03-22-2023 End: 03-22-[address] Yadira Reeves Work Phone: [facility] Start: 02-08-2023 End: 02-08-[address] Yadira Reeves Work Phone: [facility] Start: 01-18-2023 End: 01-18-[address] Yadira Reeves Work Phone: [facility] Procedures Date Procedure Procedure Detail Performing Clinician Start: 07-24-2025 Radiologic exam knee complete 4/more views Thuy Lu MD Work Phone: Start: 02-21-2024 MRI of joint of lowe r extremity Dr. Yadira Reeves Work Phone: Start: 04-16-2023 MRI of joint of lowe r extremity Dr. Yadira Reeves Work Phone: Start: 02-08-2023 Plain X-ray of shoulder Dr. Yadira Reeves Work Phone: Start: 02-08-2023 X-ray of cervical spine Dr. Yadira Reeves Work Phone: Start: 01-18-2023 Radiologic examinati on of knee Dr. Yadira Reeves Work Phone: Plan of Treatment Date Care Activity Detail Author Start: 07-24-2025 X-ray of knee, four or more views Knee 4 or More Views [facility] Start: 07-24-2025 XR Knee GE 4 Views [facility] Start: 02-25-2024 Patient referral [facility] Work Phone: Start: 04-01-2023 Patient referral [facility] Work Phone: Mercury measurement, blood [facility] Patient referral [facility] Work Phone: Breast limited [facility] Payers Date Payer Category Payer Self-pay [id number] 2024 Unknown [id number] 2016 Unknown [id number] Unknown [id number] 2.16.8 [id number] Unknown [id number] 2.16.8 [id number] Unknown [id number] 2.16.8 [id number] Unknown [id number] 2.16.8 [id number] Unknown [id number] 2.16.8 [id number] Unknown [id number] 2.16.8 [id number] Unknown [id number] 2.16.8 [id number] Unknown [id number] 2.16.8 [id number] Unknown [id number] 2.16.8 [id number] Unknown [id number] 2.16.8 [id number] Social History Date Type Detail [facility] Work Phone: Start: 1975 Sex Assigned At Female [facility] Start: 02-08-2023 End: 02-25-2024 Tobacco smoking status [facility]IS Unknown if ever smoked [facility] Start: 01-22-2025 [facility] (finding[facility] Start: 03-02-2025 Sex Female (finding) [facility] Sex Female [facility] Clinical Notes 01-22-2025 to 08-20-2025 Note Date & Type Note Facility 08-20-2025 Progress note [facility] 08-20-2025 Progress note Note Date/Time August 20, 2025 2:45pm [facility] [address], [address] [place] [address] OFFICE VISIT Date of Service: 08/20/25 MR#: [id number] Acct: [id number] Name: NATALIIA KRISHNAN MARIA VICTORIA Rep #: [id number] : 1975 Provider: Dr. Angelique Amaya DO Age/Sex: 50/F Location: [facility] Status: Signed Intake Vital Signs 01/22/25 09:19 08/20/25 13:59 08/20/25 13:59 Height 6 ft 2 in 6 ft 2 in 6 ft 2 in Weight: 170 lb 7 oz BMI 21.9 BP 137/80 H Intake Visit Reasons: Perimenopause *copay $30 Chief Complaint: Perimenopause Order Control Clerk Blood Bank Required: No Is patient in pain?: No Allergies Sulfa (Sulfonamide Antibiotics) Allergy (Verified 08/20/25 13:59) Rash Medications ?Medication ?Instructions ?Recorded ?Confirmed ?Type cholecalciferol (vitamin D3) 25 1,000 unit PO DAILY 08/20/25 History mcg (1,000 unit) capsule omega-3 fatty acids-fish oil 360 1,200 mg PO DAILY 08/20/25 History mg-1,200 mg capsule Lactobacillus acidophilus 100 mmu cells PO DAILY 01/1408/20/25 History coenzyme Q10 75 mg capsule (Ultra 75 mg PO QDAY 08/20/25 History CoQ10) multivitamin 1 tab PO QDAY 01/22/2508/20 History progesterone micronized 100 mg 300 mg (3 x 100 mg) PO QHS 90 days 01/22/25 08/20/25 Rx capsule #270 caps trazodone 100 mg tablet 100 mg PO QHS #30 TABLETS 08/20/25 Rx estradiol 0.1 mg/24 hr semiweekly transdermal 07/24/25 08/20/25 History transdermal patch (Maxine) meloxicam 7.5 mg tablet 7.5 mg PO BID PRN pain 2 wee ks #28 07/24/25 08/20/25 Rx tabs Is last menstrual period known: No Post menopausal: No Patient : No : [facility] Bilateral primary osteoarthritis of knee Left knee pain Left elbow pain Colon cancer screening History of rupture of Achilles tendon Social History Smoking Status: Never smoker alcohol intake: never substance use type: does not use caffeine: Yes what type of physical activity do you participate in: aerobics and weight training frequency: 5-6 times per week additional social history: : Gustavo GASTELUM Perimenopause *copay $30 Details: The patient is a 50-year-old female with a history of menopausal symptoms presenting for a follow-up visit. Menopausal Symptoms - Currently on estrogen patch therapy. - Recently tried oral estrogen but discontinued after one week due to a 7 lb weight gain; weight returned to baseline after discontinuation. - Reports improvement in night sweats with the estrogen patch, but symptoms returned after discontinuing oral estrogen. - Experiences night sweats almost every night, requiring a change of clothes or use of the bathroom around 3:00 AM. - Night sweats and waking up do not bother her significantly. - Reports a significant reduction in anxiety since starting the estrogen patch. - Taking vitamin D supplements daily. - Family history of thyroid issues. Low Libido - Reports a lack of motivation for sexual activity, stating, I'm just not motivated. - has noticed a decrease in her sexual motivation. - Once sexual activity is initiated and ongoing for about 20 minutes, she finds it satisfactory. - Requests a refill for Prometrium. History Elective abortions Hx Para 3 Spontaneous abortions Hx # Term Pregnancies Ectopic pregnancies Hx # Pregnancies Multiple births # of living children Past Pregnancies Del. Date Name GA/Weeks Outcome Route Bth Weight Infant Gen Labor Lgth Anesthesia Del Locatn Provider FOB Unknown Jorge Unknown Aravind Unknown Eyad Unknown Emerson ROS Const ROS Unobtainable: All systems reviewed & are unremarkable except as noted in H Resp Resp: Reports system reviewed and no additional complaints, except as documented; Denies cough GI GI: Reports as per HPI Psych Psych: Reports system reviewed and no additional complaints, except as documented Exam Const General: cooperative, healthy appearing, comfortable and no acute distress Resp Effort & Inspection: normal respiratory effort Skin General: no rashes or lesions noted Psych Appearance: grossly normal Speech and Movement: speech and movement normal Coding Level of Care Code Off vis,est,level 4 Diagnoses Fatigue R53.83 Hypoactive sexual desire F52.0 Female climacteric state N95.1 Assessment and Plan Assessment and Plan (1) Fatigue: Status: Acute (2) Hypoactive sexual desire: Status: Acute (3) Female climacteric state: Status: Acute Orders: Orders Thyroid Stim Hormone (TSH) Today R53.83 - Other fatigue Free T4 Today R53.83 - Other fatigue Plan HPI: The patient is a 50-year-old female with a history of menopausal symptoms presenting for a follow-up visit. Menopausal Symptoms - Currently on estrogen patch therapy. - Recently tried oral estrogen but discontinued after one week due to a 7 lb weight gain; weight returned to baseline after discontinuation. - Reports improvement in night sweats with the estrogen patch, but symptoms returned after discontinuing oral estrogen. - Experiences night sweats almost every night, requiring a change of clothes or use of the bathroom around 3:00 AM. - Night sweats and waking up do not bother her significantly. - Reports a significant reduction in anxiety since starting the estrogen patch. - Taking vitamin D supplements daily. - Family history of thyroid issues. Low Libido - Reports a lack of motivation for sexual activity, stating, I'm just not motivated. - has noticed a decrease in her sexual motivation. - Once sexual activity is initiated and ongoing for about 20 minutes, she finds it satisfactory. - Requests a refill for Prometrium. ROS: Constitutional: (+) night sweats, (+) sleep disturbance Genitourinary: (+) decreased libido, (-) anorgasmia Diagnostics: Assessment/Plan: # Hypoactive sexual desire disorder (F52.0) - Decreased sexual desire with preserved arousal once activity is initiated. - Discussed current evidence and guidelines from the Menopause Society regardingtestosterone therapy and flibanserin (Addyi) for HSDD; patient prefers to defer pharmacologic therapy at this time. - Provided education on HSDD, including diagnostic criteria and treatment options. - Will update patient if new clinical evidence or therapies become available. # Night sweats (R61) # Menopausal and female climacteric states (N95.1) # Current long-term use of postmenopausal hormone replacement therapy (Z79.890) - Night sweats improved with estrogen patch therapy; weight gain noted with oralestrogen. - Continue estrogen patch therapy; trial of increased dose by combining 0.1 mg and 0.025 mg patches. - Discussed differences in absorption and systemic effects between transdermal and oral estrogen; reviewed risks of off-label dosing. - Refill Prometrium. # Family history of thyroid disorder (Z83.49) - Order TSH and free T4 to assess thyroid function. Treatment Plan: - Refilled Prometrium. - Patient to try using a combination of 0.1 and 0.025 estrogen patches to assesseffectiveness in managing night sweats and anxiety. - Ordered TSH and free T4 to evaluate thyroid function. - Discussed potential benefits and risks of testosterone therapy for sexual desire, but no changes to current treatment were made. - Will keep patient informed of any new treatments or studies related to sexual desire that may be relevant. - Encouraged patient to continue taking vitamin D supplements and consider adding K2 to enhance absorption. - Will follow up on the effectiveness of the patch combination and make any necessary adjustments to the treatment plan. Patient Instructions: We discussed your menopausal symptoms and hormone therapy: - You reported that the estrogen pill caused significant weight gain, so you discontinued it. You are now experiencing night sweats again, but they are manageable for you. - You may try using a combination of your leftover 0.1 mg and 0.025 mg estrogen patches to see if this helps with your symptoms. Please monitor how you feel over the next 2-3 weeks and let me know if this approach is effective. - I renewed your prescription for Prometrium (progesterone). We discussed your concerns about sexual desire: - You described a lack of motivation for sexual activity but noted that once initiated, sexual activity is satisfactory. - We reviewed current treatment options, including testosterone therapy and Addyi (flibanserin), but you decided to hold off on these treatments for now. - I will keep you updated on any new developments or treatments that may be relevant to your concerns. We discussed your thyroid health: - I ordered lab tests to check your TSH and free T4 levels to evaluate your thyroid function. We discussed your vitamin D levels: - You are taking vitamin D supplements daily. Your last vitamin D level was checked on March 21, 2023, and was within a normal range. No further testing is needed at this time. Next steps: - Please monitor your symptoms while using the combination of estrogen patches and let me know if it helps. - Follow up with me after your thyroid lab results are available to discuss the findings and any necessary next steps. - Contact me if you experience any new or worsening symptoms, or if you have additional questions or concerns. Thank you for your time today. 08/20/25 2445 <Electronically signed by Tamia Vanessa DO> Date _ Tamia Amaya DO [facility] Signature: Date (if applicable) CC: ~ [facility] Work Phone: 1(209) 415-389509-18-2025 Progress [facility] [address] [place] [address] [id number] OFFICE VISIT Date of Service: 08/09/25 MR#: [id number] Acct: [id number] Name: NATALIIA KRISHNAN Rep #: [id number] : 1975 Provider: Dr. Christopher Hodgson MD Age/Sex: 50/F Location: [facility] Status: Signed with Addenda ADDENDUM by ANGELES Syed on 08/09/25 at 1319 Office Procedure Documentation entered by Guanaco Syed MA 08/09/25 13:19: Ortho Injections Injections Yes Knee Bilateral Is this a patient provided medication?: No Details: Obtained consent for injection. Under sterile conditions, injected the patientsbilateral knee with 2cc Kenalog, 4cc Bupivacaine x 2. The patient tolerated theinjection well without any noted complication. Patient should call our office if redness develops, pain worsens or if they have any concerns. Office Meds Kenalog 40 mg/mL suspension for injection Performing Provider: Major Hodgson MD Performing Location: [facility] Administered by: Major Hodgson MD on 08/09/25 13:16 Dose Route Admin Location Dispensed Lot Number Expiration Date Pack age NDC NDC Exposure Machine Operator 40 mg intra-articular Bilateral knee 1 mL [id number] 11/22/26 52902-70 3-10 [id number] [facility] Date _ cc: ~* Signed Intake Vital Signs 01/22/25 09:19 Height 6 ft 2 in Intake Visit Reasons: BL KNEE Chief Complaint: Bilateral Knee Steroid Injections Accompanied by: Self Is patient in pain?: Yes Pain scale (1-10): 3 Allergies Sulfa (Sulfonamide Antibiotics) Allergy (Verified 08/09/25 11:39) Rash Medications ?Medication ?Instructions ?Recorded ?Confirmed ?Type cholecalciferol (vitamin D3) 25 1,000 unit PO DAILY 08/09/25 History mcg (1,000 unit) capsule omega-3 fatty acids-fish oil 360 1,200 mg PO DAILY 08/09/25 History mg-1,200 mg capsule Lactobacillus acidophilus 100 mmu cells PO DAILY 01/1408/09/25 History coenzyme Q10 75 mg capsule (Ultra 75 mg PO QDAY 08/09/25 History CoQ10) multivitamin 1 tab PO QDAY 01/22/2508/09 History progesterone micronized 100 mg 300 mg (3 x 100 mg) PO QHS 90 days 01/22/25 08/09/25 Rx capsule #270 caps trazodone 100 mg tablet 100 mg PO QHS #30 TABLETS 08/09/25 Rx estradiol 0.1 mg/24 hr semiweekly transdermal 07/24/25 08/09/25 History transdermal patch (Maxine) meloxicam 7.5 mg tablet 7.5 mg PO BID PRN pain 2 tonja nath #28 07/24/25 08/09/25 Rx tabs PFSH Medical History Bilateral primary osteoarthritis of knee Left knee pain Left elbow pain Colon cancer screening History of rupture of Achilles tendon Social History Smoking Status: Never smoker alcohol intake: never substance use type: does not use caffeine: Yes what type of physical activity do you participate in: aerobics and weight training frequency: 5-6 times per week additional social history: : Gustavo BISHOP KNEE Details: This documentation accurately reflects the service provided and the decisions made by me, Dr. Angelica MD 08/09/25 1105. Part of today?s visit was documented by [ ], acting as scribe. NATALIIA KRISHNAN is a 50 year old F here today for bilateral knee pain osteoarthritis wants to go ahead with the cortisone injections. Coding Level of Care Code Attention Napper Tender Diagnoses Bilateral primary osteoarthritis of knee M17.0 Comment 20205 and cpt inject major joint x 2 Assessment and Plan Assessment and Plan (1) Bilateral primary osteoarthritis of knee: Status: Acute Plan: NATALIIA KRISHNAN is a 50 year old F here today for bilateral knee pain osteoarthritis wants to go ahead with the cortisone injections. FU 6 weeks or PRN. Right knee intra-articular cortisone injection We discussed the pros and cons risks and benefits of going ahead with right kneeintra-articular cortisone injection. The risks include but are not limited to infection, pain, acute flare reaction, stiffness, bleeding, damage to surrounding structures, worsening arthritis or damage to the cartilage.The patient wished to proceed. The anterior aspect of the knee was prepped with chlorhexidine in the usual sterile fashion. Sterile no touch technique was employed. Used Gebauer spray per bottle instructions. 2 cc of 40 mg/mL Kenalog with 4 cc of 0.25% bupivicaine was injected into the intra-articular portion of the knee. Bandage placed. The patient tolerated procedure well. There is no complications. Standard post procedure care instructions were given. Red flag symptoms were discussed in which case to return to clinic immediately or go to the emergency department such as redness, swelling, fever, discharge, drainage, increase pain or other symptoms. Left knee intra-articular cortisone injection We discussed the pros and cons risks and benefits of going ahead with left knee intra-articular cortisone injection. The risks include but are not limited to infection, pain, acute flare reaction, stiffness, bleedin,g damage to surrounding structures, worsening arthritis or damage to the cartilage.The patient wished to proceed. The anterior aspect of the knee was prepped with chlorhexidine in the usual sterile fashion. Sterile no touch technique was employed. Used Gebauer spray per bottle instructions. 2 cc of 40 mg/mL Kenalogwith 4 cc of 0.25% bupivicaine was injected into the intra-articular portion of the knee. The patient tolerated procedure well. Bandage placed. There is no complications. Standard post procedure care instructions were given. Red flag symptoms were discussed in which case to return to clinic immediately or go to the emergency department such as redness, swelling, fever, discharge, drainage, increase pain or other symptoms. Ortho Exam General General: Yes no acute distress Neurologic: Yes alert and Yes oriented x3 Psychologic: Yes reasonable and appropriate Right Knee Skin/Wound: Yes CDI, No erythema, No ecchymosis and No swelling Left Knee Skin/Wound: Yes CDI, No ecchymosis, No erythema and No swelling 08/09/25 1154 n MD> Date _ Major Hodgson MD Cosigner Signature: Date (if applicable) CC: ~ [facility]09-02-2025 Evaluation note* Diagnosis Onset Date Resolution Status Admit Date Bilateral primary osteoarthritis of knee acute July 24, 2025 11:08am Left knee pain acute July 24, 2025 11:08am Right knee pain acute July 24, 2025 11:08am Bilateral primary osteoarthritis of knee acute August 09, 2025 11:29am [facility] Work Phone: 1(665) 595-502809-02-2025 Evaluation note* Diagnosis Onset Date Resolution Status Admit Date Bilateral primary osteoarthritis of knee acute July 24, 2025 11:08am Left knee pain acute July 24, 2025 11:08am Right knee pain acute July 24, 2025 11:08am Bilateral primary osteoarthritis of knee acute August 09, 2025 11:29am Fatigue acute July 1:47pm Female climacteric state acute August 20, 2025 1:47pm Hypoactive sexual desire acute August 20, 2025 1:47pm [facility] Work Phone: 1(160) 110-480705-05-2025 Evaluation note* Diagnosis Onset Date Resolution Status Admit Date Left lateral epicondylitis acute March 26, 2025 1:13pm Left knee pain acute July 24, 2025 11:08am Right knee pain acute July 24, 2025 11:08am [facility] Work Phone: 1([phone]) [phone] Evaluation note* Diagnosis Onset Date Resolution Status Admit Date Left lateral epicondylitis acute March 26, 2025 1:13pm Bilateral primary osteoarthritis of knee acute July 24, 2025 11:08am Left knee pain acute July 24, 2025 11:08am Right knee pain acute July 24, 2025 11:08am [facility] Work Phone: 1(862) 413-648203-03-2025 Evaluation note* Diagnosis Onset Date Resolution Status Admit Date Encounter for routine gynecological examination noneactive January 22, 2025 9:03am [facility] Work Phone: Evaluation noteNo assessment information available [facility] Work Phone: Evaluation note* Diagnosis Onset Date Resolution Status Iliotibial band syndrome, right leg acute Patellofemoral syndrome, right acute Right knee pain acute Impingement syndrome, shoulder, left acute [facility] Work Phone: Evaluation note* Diagnosis Onset Date Resolution Status Impingement syndrome, shoulder, left acute Effusion, right knee acute Left lateral epicondylitis a cute [facility] Work Phone: Evaluation note* Diagnosis Onset Date Resolution Status Effusion, right knee acute Left lateral epicondylitis a [facility] Work Phone: Evaluation note* Diagnosis Onset Date Resolution Status Left lateral epicondylitis a cute Acute bronchitis acute Encounter for routine gynecological examination noneactive [facility] Work Phone: Evaluation note* Diagnosis Onset Date Resolution Status Left lateral epicondylitis a cute Acute bronchitis acute Encounter for routine gynecological examination noneactive Left lateral epicondylitis a [facility] Work Phone: Progress note Author Major Hodgson [facility] Note Date/Time August 09, 2025 11:54am [facility] [address] [place] [address] [address] [place] [address] OFFICE VISIT Date of Service: 08/09/25 MR#: [id number] Acct: [id number] Name: NATALIIA KRISHNAN Rep #: [id number] : 1975 Provider: Dr. Christopher Hodgson MD Age/Sex: 50/F Location: [facility] [place] Status: Signed with Addenda ADDENDUM by ANGELES Syed on 08/09/25 at 1319 Office Procedure Documentation entered by Guanaco Syed MA 08/09/25 13:19: Ortho Injections Injections Yes Knee Bilateral Is this a patient provided medication?: No Details: Obtained consent for injection. Under sterile conditions, injected the patientsbilateral knee with 2cc Kenalog, 4cc Bupivacaine x 2. The patient tolerated theinjection well without any noted complication. Patient should call our office if redness develops, pain worsens or if they have any concerns. Office Meds Kenalog 40 mg/mL suspension for injection Performing Provider: Major Hodgson MD Performing Location: [facility] Administered by: Major Hodgson MD on 08/09/25 13:16 Dose Route Admin Location Dispensed Lot Number Expiration Date Pack age NDC NDC Exposure Machine Operator 40 mg intra-articular Bilateral knee 1 mL [id number] 11/22/26 02588-32 3-10 [id number] [facility] Date _ cc: ~* Signed Intake Vital Signs 01/22/25 09:19 Height 6 ft 2 in Intake Visit Reasons: BL KNEE Chief Complaint: Bilateral Knee Steroid Injections Accompanied by: Self Is patient in pain?: Yes Pain scale (1-10): 3 Allergies Sulfa (Sulfonamide Antibiotics) Allergy (Verified 08/09/25 11:39) Rash Medications ?Medication ?Instructions ?Recorded ?Confirmed ?Type cholecalciferol (vitamin D3) 25 1,000 unit PO DAILY 08/09/25 History mcg (1,000 unit) capsule omega-3 fatty acids-fish oil 360 1,200 mg PO DAILY 08/09/25 History mg-1,200 mg capsule Lactobacillus acidophilus 100 mmu cells PO DAILY 01/1408/09/25 History coenzyme Q10 75 mg capsule (Ultra 75 mg PO QDAY 08/09/25 History CoQ10) multivitamin 1 tab PO QDAY 01/22/2508/09 History progesterone micronized 100 mg 300 mg (3 x 100 mg) PO QHS 90 days 01/22/25 08/09/25 Rx capsule #270 caps trazodone 100 mg tablet 100 mg PO QHS #30 TABLETS 08/09/25 Rx estradiol 0.1 mg/24 hr semiweekly transdermal 07/24/25 08/09/25 History transdermal patch (Maxine) meloxicam 7.5 mg tablet 7.5 mg PO BID PRN pain 2 wee ks #28 07/24/25 08/09/25 Rx tabs PFSH Medical History Bilateral primary osteoarthritis of knee Left knee pain Left elbow pain Colon cancer screening History of rupture of Achilles tendon Social History Smoking Status: Never smoker alcohol intake: never substance use type: does not use caffeine: Yes what type of physical activity do you participate in: aerobics and weight training frequency: 5-6 times per week additional social history: : Gustavo NIRAV BL KNEE Details: This documentation accurately reflects the service provided and the decisions made by me, Dr. Major Hodgson MD 08/09/25 8206. Part of today?s visit was documented by [ ], acting as scribe. NATALIIA KRISHNAN is a 50 year old F here today for bilateral knee pain osteoarthritis wants to go ahead with the cortisone injections. Coding Level of Care Code Attention Napper Tender Diagnoses Bilateral primary osteoarthritis of knee M17.0 Comment 09355 and cpt inject major joint x 2 Assessment and Plan Assessment and Plan (1) Bilateral primary osteoarthritis of knee: Status: Acute Plan: NATALIIA KRISHNAN is a 50 year old F here today for bilateral knee pain osteoarthritis wants to go ahead with the cortisone injections. FU 6 weeks or PRN. Right knee intra-articular cortisone injection We discussed the pros and cons risks and benefits of going ahead with right kneeintra-articular cortisone injection. The risks include but are not limited to infection, pain, acute flare reaction, stiffness, bleeding, damage to surrounding structures, worsening arthritis or damage to the cartilage. The patient wished to proceed. The anterior aspect of the knee was prepped with chlorhexidine in the usual sterile fashion. Sterile no touch technique was employed. Used Gebauer spray per bottle instructions. 2 cc of 40 mg/mL Kenalog with 4 cc of 0.25% bupivicaine was injected into the intra-articular portion of the knee. Bandage placed. The patient tolerated procedure well. There is no complications. Standard post procedure care instructions were given. Red flag symptoms were discussed in which case to return to clinic immediately or go to the emergency department such as redness, swelling, fever, discharge, drainage, increase pain or other symptoms. Left knee intra-articular cortisone injection We discussed the pros and cons risks and benefits of going ahead with left knee intra-articular cortisone injection. The risks include but are not limited to infection, pain, acute flare reaction, stiffness, bleedin,g damage to surrounding structures, worsening arthritis or damage to the cartilage. The patient wished to proceed. The anterior aspect of the knee was prepped with chlorhexidine in the usual sterile fashion. Sterile no touch technique was employed. Used Gebauer spray per bottle instructions. 2 cc of 40 mg/mL Kenalogwith 4 cc of 0.25% bupivicaine was injected into the intra-articular portion of the knee. The patient tolerated procedure well. Bandage placed. There is no complications. Standard post procedure care instructions were given. Red flag symptoms were discussed in which case to return to clinic immediately or go to the emergency department such as redness, swelling, fever, discharge, drainage, increase pain or other symptoms. Ortho Exam General General: Yes no acute distress Neurologic: Yes alert and Yes oriented x3 Psychologic: Yes reasonable and appropriate Right Knee Skin/Wound: Yes CDI, No erythema, No ecchymosis and No swelling Left Knee Skin/Wound: Yes CDI, No ecchymosis, No erythema and No swelling 08/09/25 1154 <Electronically signed by Major fitzpatrick MD> Date _ Major Hodgson MD Cosigner Signature: Date (if applicable) CC: ~ [facility] Work Phone: Reason for referral (narrative)No reason for referral [facility] Work Phone: Summary Purpose Family History No Family History Records FoundNo Family History Records Found Advance Directives No Advanced Directives Records Found Advance Directive Response Recorded Date/ Time Living Will No June 06, 2020 10:06am Power of Tourist Camp Attendant No June 06 0 10:06am Advance Directive Response Recorded Date/ Time Living Will No June 06, 2020 10:06am Do you have a Healthcare Power of Tourist Camp Attendant? No June 06, 2020 10:06am Chief Complaint and Reason for Visit Chief Complaint RIGHT KNEE RM 3 XRAY LEFT SHOULDER Room 3 Reason for Visit Iliotibial band synd kevin, right leg Patellofemoral syndrome, right Right knee pain Impingement syndrome, shoulder, left Chief Complaint LEFT SHOULDER Room 3 KNEE RT KNEE EFFUSION Reason for Visit Impingement syndrome , shoulder, left Effusion, right knee Left lateral epicondylitis Chief Complaint KNEE RT KNEE EFFUSION E ODER Reason for Visit Effusion, right knee Left lateral epicondylitis Chief Complaint LEFT ELBOW Cough Annual (REHABILITATION SERVICES DIRECTOR) LT ELBOW PAIN, ASSESS FOR TENNIS ELBOW Reason for Visit Left lateral epicond ylitis Acute bronchitis Encounter for routine gynecological examination Chief Complaint LEFT ELBOW Cough Annual (REHABILITATION SERVICES DIRECTOR) LT ELBOW PAIN, ASSESS FOR TENNIS ELBOW LEFT ELBOW L LATERAL EPICONDYLITIS/RX HERE Reason for Visit Left lateral epicond ylitis Acute bronchitis Encounter for routine gynecological examination Left lateral epicondylitis Chief Complaint Admit Date Annual (REHABILITATION SERVICES DIRECTOR) January 22, 2025 9:03 am E-ORDER March 01, 2025 2:5 1pm Reason for Visit Admit Date Encounter for routine gynecological exam ination January 22, 2025 9:03am Chief Complaint Admit Date LEFT ELBOW March 26, 2025 1:13pm BL KNEES July 24, 2025 11:08am Room 8 July 24, 2025 11:17am Reason for Visit Admit Date Left lateral epicondylitis March 26, 2025 1:13pm Left knee pain July 24, 2025 11:08am Right knee pain July 24, 2025 11:08am Reason for Visit Admit Date Left lateral epicondylitis March 26, 2025 1:13pm Bilateral primary osteoarthritis of knee July 24, 2025 11:08am Left knee pain July 24, 2025 11:08am Right knee pain July 24, 2025 11:08am Chief Complaint Admit Date BL KNEES July 24, 2025 11:08am Room 8 July 24, 2025 11:17am BL KNEE August 09, 2025 11:29am Reason for Visit Admit Date Bilateral primary osteoarthritis of knee July 24, 2025 11:08am Left knee pain July 24, 2025 11:08am Right knee pain July 24, 2025 11:08am Bilateral primary osteoarthritis of knee August 09, 2025 11:29am Chief Complaint Admit Date BL KNEES July 24, 2025 11:08am Room 8 July 24, 2025 11:17am BL KNEE August 09, 2025 11:29am Perimenopause *copay $30 August 20, 2025 1:47pm Reason for Visit Admit Date Bilateral primary osteoarthritis of knee July 24, 2025 11:08am Left knee pain July 24, 2025 11:08am Right knee pain July 24, 2025 11:08am Bilateral primary osteoarthritis of knee August 09, 2025 11:29am Fatigue August 20, 2025 1:47pm Female climacteric state August 20, 2025 1:47pm Hypoactive sexual desire August 20, 2025 1:47pm Additional Source Comments INFORMATION SOURCE (unrecogn ized section and content) DATE CREATED AUTHOR 10/27/2019 [facility] DATE CREATED AUTHOR AUTHOR'S ORGANCARSON ATION 09/18/2025 [facility] Goals (unrecognized section and content) Goals may be documented in a n alternate sectionGoals may be documented in an alternate sectionGoals may be documented in an alternate sectionGoals may be documented in an alternate sectionGoals may be documented in an alternate sectionGoals may be documented in an alternate sectionGoals may be documented in an alternate sectionGoals may be documented in an alternate sectionGoals may be documented in an alternate sectionGoals may be documented in an alternate sectionGoals may be documented in an alternate section Care Teams (unrecognized sec tion and content) Team Status: Active Member Role Status Dates Dr. Yadira Reeves MD Family Provider Active Dr. Yadira Reeves MD Primary Care Provider Active Team Status: Inactive Member Role Status Dates Dr. Yadira Reeves MD Primary Care Provider, Referrin g Provider Active Ari THORNTON, PA Attending Provider Active Team Status: Inactive Member Role Status Dates Dr. Yadira Reeves MD Primary Care Provider Active Dr. Candelario Mc MD Attending Provider Active Team Status: Inactive Member Role Status Dates Dr. Yadria Reeves MD Primary Care Provider Active Dr. Jason Pruett DO Attending Provider, Referring Provider Active Team Status: Inactive Member Role Status Dates Dr. Yadira Reeves MD Primary Care Provider Active Ari THORNTON PA Attending Provider, Referring Prov ider Active Team Status: Inactive Member Role Status Dates Dr. Yadira Reeves MD Primary Care Provider, Attendin g Provider Active Team Status: Inactive Member Role Status Dates Dr. Yadira Reeves MD Primary Care Provider, Referrin g Provider Active Isabel Dickerson CNM Attending Provider Active Team Status: Inactive Member Role Status Dates Dr. Yadira Reeves MD Primary Care Provider, Referrin g Provider Active Major Hodgson MD Attending Provider Active Team Status: Inactive Member Role Status Dates Dr. Yadira Reeves MD Primary Care Provider, Referrin g Provider Active Cristian THORNTON, PA Attending Provider Active Team Status: Inactive Member Role Status Dates Dr. Yadira Reeves MD Primary Care Provider Active Major Hodgson MD Attending Provider, Referring Prov ider Active Team Status: Active Member Role Status Dates Dr. Yadira Reeves MD Primary Care Provider Active Major Hodgson MD Attending Provider Active Team Status: Active Member Role Status Dates Dr. Yadira Reeves MD Family Provider Active Thuy Lu MD Primary Care Provider Active Team Status: Inactive Member Role Status Dates Dr. Yadira Reeves MD Primary Care Provider Active Start: January 22, 2025 End: January 22, 2025 Dr. Yadira Reeves MD Referring Provider Active Start: January 22, 2025 End: January 22, 2025 Dr. Tamia Amaya DO Attending Provider Activ e Start: January 22, 2025 End: January 22, 2025 Team Status: Inactive Member Role Status Dates Thuy Lu MD Primary Care Provider Active St art: March 01, 2025 End: March 01, 2025 Thuy Lu MD Attending Provider Active Start : March 01, 2025 End: March 01, 2025 Thuy Lu MD Referring Provider Active Start : March 01, 2025 End: March 01, 2025 Team Status: Active Member Role/Relationship Status Dates Dr. Yadira Reeves MD Family Provider Active Thuy Lu MD Primary Care Provider Active Team Status: Inactive Member Role/Relationship Status Dates Thuy Lu MD Primary Care Provider Active St art: March 26, 2025 End: March 26, 2025 Thuy Lu MD Referring Provider Active Start : March 26, 2025 End: March 26, 2025 Major Hodgson MD Attending Provider Active St art: March 26, 2025 End: March 26, 2025 Team Status: Active Member Role/Relationship Status Dates Thuy Lu MD Primary Care Provider Active St art: July 24, 2025 Thuy Lu MD Referring Provider Active Start : July 24, 2025 Major Hodgson MD Attending Provider Active St art: July 24, 2025 Team Status: Inactive Member Role/Relationship Status Dates Thuy Lu MD Primary Care Provider Active St art: July 24, 2025 End: July 24, 2025 Dr. Candelario Mc MD Attending Provider Active S tart: July 24, 2025 End: July 24, 2025 Team Status: Inactive Member Role/Relationship Status Dates Thuy Lu MD Primary Care Provider Active St art: July 24, 2025 End: July 24, 2025 Thuy Lu MD Referring Provider Active Start : July 24, 2025 End: July 24, 2025 Major Hodgson MD Attending Provider Active St art: July 24, 2025 End: July 24, 2025 Team Status: Active Member Role/Relationship Status Dates Dr. Yadira Reeves MD Primary care physician Active Thuy Lu MD Primary care physician Active Team Status: Inactive Member Role/Relationship Status Medina Lu MD Primary care physician Active S tart: July 24, 2025 End: July 24, 2025 Thuy Lu MD Referring Provider Active Start : July 24, 2025 End: July 24, 2025 Major Hodgson MD Attending physician Active S tart: July 24, 2025 End: July 24, 2025 Team Status: Inactive Member Role/Relationship Status Medina Lu MD Primary care physician Active S tart: July 24, 2025 End: July 24, 2025 Dr. Candelario Mc MD Attending physician Active Start: July 24, 2025 End: July 24, 2025 Team Status: Inactive Member Role/Relationship Status Medina Lu MD Primary care physician Active S tart: August 09, 2025 End: August 09, 2025 Thuy Lu MD Referring Provider Active Start : August 09, 2025 End: August 09, 2025 Major Hodgson MD Attending physician Active S tart: August 09, 2025 End: August 09, 2025 Team Status: Inactive Member Role/Relationship Status Medina Lu MD Primary care physician Active S tart: August 20, 2025 End: August 20, 2025 Thuy Lu MD Referring Provider Active Start : August 20, 2025 End: August 20, 2025 Dr. Tamia Amaya DO Attending physician Active Start: July End: August 20, 2025 Team Status: Active Member Role/Relationship Status Medina Lu MD Primary care physician Active S tart: August 20, 2025 Dr. Tamia Amaya DO Attending physician Active Start: July Dr. Tamia Amaya DO Referring Provider Active Start: July FOR RECORDS PERTAINING TO PATIENTS WHO ARE OR HAVE BEEN ENROLLED IN A CHEMICAL DEPENDENCY/SUBSTANCEABUSE PROGRAM, SOME INFORMATION MAY BE OMITTED. This clinical summary was aggregated from multiple sources. Caution should be exercised in using it in the provision of clinical care. This summary normalizes information from multiple sources, and as a consequence, information in this document may materially change the coding, format and clinical context of patient data. In addition, data may be omitted in some cases. CLINICAL DECISIONS SHOULD BE BASED ON THE PRIMARY CLINICAL RECORDS. [facility] [employer] provides no warranty or guarantee of the accuracy or completeness of information in this document.
[2025-10-17 10:56] LABS: Vitamin B12 645 pg/mL (180-914); Vitamin D,25 Hydroxy 70.5 ng/mL (30-100)
[2025-10-22 13:08] LABS: Testosterone, % Free 1.66 % (0.50-2.80); Testosterone, Free <.05 ng/dL (0.10-0.85)
== END | disposition home or self-care (01) ==
LOC: MTLAB 07:18
PROVIDERS: PCP Family Medicine
DX: R68.82 Decreased libido (principal); R53.83 Other fatigue
CPT/HCPCS: 36415; 82306; 82607; 82670; 83036; 83525; 84270; 84402; 84403